=== PATIENT | female | born 1945 | race Caucasian/White ===

== ENCOUNTER 2020-03-20 15:16 | Inpatient (IN) | payer MEDICARE ==
[~2020-03-20] VITALS: Ht 162.6 cm; Wt 46.7 kg
[~2020-03-20 15:16] MED LIST: ASPIR-LOW81 MG; BUSPIRONE HCL5 MG PO; CLONAZEPAM0.5 M1 PO; GABAPENTIN300 MG PO; IPRATROPIUM BRO15 ML; LEVOTHYROXINE50 MCG PO; METOPROLOL TART50 MG PO; PROAIR HFA INH8.5 GM; RANITIDINE HCL150 M1 PO; ULTRAM50 MG PO
[2020-03-20 16:10] LABS: BASOPHILS % 0.3 % (0.0-1.0); EOSINOPHILS % 0.3 % (0.0-6.0); HEMATOCRIT 36.8 % (34.2-44.1); HEMOGLOBIN 11.8 g/dL (12.0-16.0); LYMPHOCYTES % 7.6 % (18.0-39.1); MEAN CORPUSCULAR HEMOGLOBIN 29.9 pg (28-32); MEAN CORPUSCULAR HGB CONC 32.1 g/dL (31-35); MEAN CORPUSCULAR VOLUME 93.2 fL (81-99); MONOCYTES # (AUTO) 1.4 (0.2-0.8); MONOCYTES % 10.7 % (4.4-11.3); NEUTROPHILS # (AUTO) 10.8 (2.1-6.9); NEUTROPHILS % 80.7 % (38.7-80.0); PLATELET COUNT 146 x10e3/uL (140-360); RED BLOOD COUNT 3.95 x10e6/uL (3.6-5.1)
[2020-03-20 16:18] LABS: INR 0.99; PROTHROMBIN TIME 13.6 seconds (11.9-14.5)
[2020-03-20 16:25] LABS: ALANINE AMINOTRANSFERASE 21 IU/L (0-55); ALBUMIN 2.9 g/dL (3.5-5.0); ALBUMIN/GLOBULIN RATIO 0.9 (0.8-2.0); ALKALINE PHOSPHATASE 55 IU/L (40-150); ANION GAP 17.6 mmol/L (8-16); BLOOD UREA NITROGEN 20 mg/dL (7-26); BUN/CREATININE RATIO 27 (6-25); CALCIUM 8.9 mg/dL (8.4-10.2); CARBON DIOXIDE 24 mmol/L (22-29); CHLORIDE 100 mmol/L (98-107); CREATININE, SERUM 0.74 mg/dL (0.57-1.11); EST GLOMERULAR FILTRATION RATE > 60 ML/MIN (60-); GLUCOSE 110 mg/dL (74-118); POTASSIUM 3.6 mmol/L (3.5-5.1); SODIUM 138 mmol/L (136-145)
[2020-03-20] MEDS ORDERED: AZITHROMYCIN 250 MG TAB PO ONE (17:15)
[2020-03-20] MEDS ORDERED: CEFTRIAXONE SOD 1 GM/NS 50 ML 50 ML IV ONE (17:30)
[2020-03-20] MEDS ORDERED: LACTATED RINGER'S 1,000 ML INJ ONE (17:30)
[2020-03-20 18:12] LABS: BILIRUBIN,URINE SMALL (NEGATIVE); CLARITY,URINE SL CLOUDY (CLEAR); COLOR,URINE YELLOW (YELLOW); KETONES,URINE 2+ (NEGATIVE); LEUKOCYTE ESTERASE ,URINE TRACE (NEGATIVE); NITRITE,URINE NEGATIVE (NEGATIVE); PROTEIN,URINE DIPSTICK 1+ (NEGATIVE); URINE UROBILINOGEN 0.2 mg/dL (0.2 - 1)
[2020-03-20 18:25] LABS: BACTERIA,URINE FEW /HPF; EPITHELIAL CELLS,URINE FEW /LPF; MUCUS,URINE FEW (RARE)
[2020-03-20 20:00] VITALS: BP 144/67
[2020-03-20 20:14] VITALS: BP 144/67
[2020-03-20] MEDS ORDERED: LOPERAMIDE HCL 2 MG CAP PO PRN (21:30)
[2020-03-20] MEDS ORDERED: SODIUM CHLORIDE 0.9% 1000ML 1,000 ML ONE (21:58)
[2020-03-20] MEDS ORDERED: SODIUM CHLORIDE 0.9% 1000ML 1,000 ML IV SCH (22:00)
[2020-03-20] MEDS: METOPROLOL TARTRATE 50 MG TAB PO SCH (22:01)
[2020-03-21] VITALS (7 sets, daily range): BP systolic 129–152; BP diastolic 68–125
[2020-03-21 05:04] LABS: BASOPHILS % 0.4 % (0.0-1.0); EOSINOPHILS # (AUTO) 0.1 (0.0-0.4); EOSINOPHILS % 0.8 % (0.0-6.0); HEMOGLOBIN 11.2 g/dL (12.0-16.0); LYMPHOCYTES # (AUTO) 0.8 (1.0-3.2); LYMPHOCYTES % 7.2 % (18.0-39.1); MEAN CORPUSCULAR HEMOGLOBIN 30.8 pg (28-32); MEAN CORPUSCULAR HGB CONC 32.9 g/dL (31-35); MEAN CORPUSCULAR VOLUME 93.4 fL (81-99); MONOCYTES # (AUTO) 1.3 (0.2-0.8); MONOCYTES % 12.7 % (4.4-11.3); NEUTROPHILS # (AUTO) 8.2 (2.1-6.9); NEUTROPHILS % 78.4 % (38.7-80.0); PLATELET COUNT 134 x10e3/uL (140-360); RED BLOOD COUNT 3.64 x10e6/uL (3.6-5.1); RED CELL DISTRIBUTION WIDTH 13.9 % (11.7-14.4)
[2020-03-21 05:19] LABS: ANION GAP 15.2 mmol/L (8-16); BLOOD UREA NITROGEN 12 mg/dL (7-26); BUN/CREATININE RATIO 19 (6-25); CALCIUM 8.4 mg/dL (8.4-10.2); CARBON DIOXIDE 24 mmol/L (22-29); CHLORIDE 102 mmol/L (98-107); CREATININE, SERUM 0.63 mg/dL (0.57-1.11); EST GLOMERULAR FILTRATION RATE > 60 ML/MIN (60-); GLUCOSE 107 mg/dL (74-118); POTASSIUM 3.2 mmol/L (3.5-5.1); SODIUM 138 mmol/L (136-145)
[2020-03-21] MEDS ORDERED: ACETAMINOPHEN 325 MG TAB PO PRN (05:30)
[2020-03-21] MEDS: ALBUTEROL/IPRATROPIUM 3 ML NEB NEB SCH ×3 (06:55→15:00)
[2020-03-21] MEDS: METOPROLOL TARTRATE 50 MG TAB PO SCH (08:57)
[2020-03-21] MEDS ORDERED: CLONAZEPAM PO PRN (10:45)
[2020-03-21] MEDS ORDERED: TRAMADOL HCL 50 MG TAB PO PRN (10:45)
[2020-03-21] MEDS ORDERED: GABAPENTIN 300 MG CAP PO SCH (11:00)
[2020-03-21] MEDS ORDERED: ASPIRIN 81 MG CHEW TAB PO SCH (11:00)
[2020-03-21] MEDS ORDERED: POTASSIUM CHLORIDE 20 MEQ TAB CR PO PRN (11:45)
[2020-03-21] MEDS ORDERED: PIPER-TAZ 3.375 GM 50 ML IV SCH (12:00)
[2020-03-21] MEDS ORDERED: NICOTINE 21 MG/EA PATCH TOP SCH (12:00)
[2020-03-21] MEDS ORDERED: AZITHROMYCIN 250MG/NS 100 ML 100 ML IV SCH (14:00)
[2020-03-21] MEDS ORDERED: METOPROLOL TARTRATE 50 MG TAB PO SCH (17:00)
[2020-03-21] MEDS ORDERED: BUSPIRONE HCL 5 MG TAB PO SCH (17:00)
[2020-03-22] MEDS ORDERED: LEVOTHYROXINE SODIUM 125 MCG TAB PO SCH (06:00)
[2020-03-22] MEDS ORDERED: FAMOTIDINE 20 MG TAB PO SCH (07:30)
[2020-03-22] MEDS ORDERED: RANITIDINE HCL PO SCH (09:00)
== END 2020-03-21 15:50 | disposition left against medical advice (07) | DRG 190 ==
LOC: ER 15:55 → ERHOLD 17:19 → MED/SURG2 19:39
DX: J44.0 Chronic obstructive pulmonary disease with (acute) lower respiratory infection (principal); J18.1 Lobar pneumonia, unspecified organism; N39.0 Urinary tract infection, site not specified; E44.1 Mild protein-calorie malnutrition; Z68.1 Body mass index [BMI] 19.9 or less, adult; Z11.59 Encounter for screening for other viral diseases; F17.210 Nicotine dependence, cigarettes, uncomplicated
CPT/HCPCS: 36415; 70450; 71045; 80048; 80053; 81001; 83605; 84484; 85025; 85610; 87040; 87400; 93005; 94640; 96361; J0696; J2543; J7030; J7121; U0002

== ENCOUNTER 2020-03-21 21:35 | Inpatient (IN) | payer MEDICARE ==
[~2020-03-21] VITALS: Ht 180.3 cm; Wt 44.9 kg
--- OUTSIDE RECORDS SUMMARY | 2020-03-21 21:58 | XMS REPORT | Clinical Summary ---
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 Active metoprolol succinate XL Take 100 mg 0 (TOPROL-XL) 100 mg 24 hr by mouth 2 tablet (two) times a day. Active losartan (COZAAR) 100 MG Take 1 tablet 0 tablet by mouth daily. Taken at noon Active clonAZEPAM (KlonoPIN) 0.5 Take 1 tablet 0 12/0 7/201 MG tablet by mouth 2 0 (two) times a day. Active loperamide (IMODIUM) 2 mg Take 2 mg by 0 capsule mouth 4 (four) times a day as needed for diarrhea. Active levothyroxine sodium Take by 0 (LEVOTHYROXINE ORAL) mouth. Active fluticasone-vilanterol Inhale 1 0 (BREO ELLIPTA) 100-25 inhalations mcg/dose blister with once daily. device powder for inhalation Active Problems Problem Noted Date Primary osteoarthritis of left knee 06/23/2018 Surgical History Surgery Date Site/Laterality Comments APPENDECTOMY 06/06/1961 - 06/05/1962 CHOLECYSTECTOMY 6 years ago COLONOSCOPY ARTHROPLASTY, KNEE, TOTAL 07/03/2018 Knee/Left Proc edure: LEFT TOTAL KNEE ARTHROPLASTY; Surgeon: Miguel Bell MD; Location: [address]; Service: Orthopedics; Laterality: Left ; Medical devices from this surgery are i n the Implants section. Medical History Medical History Date Comments Anesthesia hx of aspiration / NFHAP Dentition: wears upper /lower dentures Does not exercise denied SOB or CP / un able to climb stairs , uses cane to roam around Brain aneurysm diagnosed 9 years ago / n o surgical procedure done, monitored yearly COPD (chronic obstructive pulmonary does not have a Clinic Charge Nurse disease) (HCC) Hypertension Hypothyroidism GERD (gastroesophageal reflux disease) Arthritis lower back Difficulty swallowing r/t chemo/radiation therapy (neuroendocrine CA) Chronic diarrhea Diabetes mellitus (HCC) hx of - not on any medicati on Neuroendocrine cancer (HCC) lung , 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 Never 06/27/2018 How many drinks containing alcohol do you have on No t asked a typical day when you are drinking? How often do you have six or more drinks on one Not asked occasion? Sex Assigned at Date Recorded Not on file Last Filed Vital Signs Not on file Plan of Treatment Health Maintenance Due Date Last Done Comments COLONOSCOPY SCREENING 1993 SHINGLES VACCINES (#1) 1993 65+ PNEUMOCOCCAL VACCINE 2008 (1 of 1 - PPSV23) INFLUENZA VACCINE 01/05/2020 Implants Device Identifier Shelf Expiration Date Model / Serial / L ot Implanted Type Area Manufactur er 03/16/2028 [id number] / / [id number] Cee Cr Ilok Fem-Lt 62.5 - IPM Left: Knee BIOMET, [id number] IMPLANT [employer] Implanted: Qty: 1 on 07/03/2018 by DEVICES Miguel Bell MD at [facility] 02/25/2023 [id number] / / [id number] Rene Hall Brg 12x67 - IPM Left: Knee BIOMET, [id number] IMPLANT INC Implanted: Qty: 1 on 07/03/2018 by DEVICES Miguel Bell MD at [facility] 05/15/2023 [id number] / / [id number] Implant Ptlr Cee 3 Peg Series Knee Joint Left: Knee [employer] A Std 34x8.5mm - [id number] Implants Implanted: Qty: 1 on 07/03/2018 by Miguel Bell MD at [facility] 05/02/2028 [id number] / / [id number] Tray Tib Prim Interlok 67mm Ascent Knee Joint Left: Knee [employer]ET [employer] Maxim - [id number] Implants Implanted: Qty: 1 on 07/03/2018 by Miguel Bell MD at [facility] 05/25/2028 [id number] / / [id number] Stem Tib Prim Finned [id number] Ascent Knee Joint Left: Knee [employer]ET [employer] Maxim - [id number] Implants Implanted: Qty: 1 on 07/03/2018 by Miguel Bell MD at [facility] 07/06/2020 [id number] / / [id number] Cement Bone Refobacin R 40g - Surgical Left: Knee [employer] [id number] Bone Implanted: Qty: 1 on 07/03/2018 by Cement Miguel Bell MD at [facility] Results Not on fileafter 03/21/2019 Insurance Type Payer Benefit Subscriber ID Effective Phone Address Plan / Dates Group Medicare MEDICARE MEDICARE [id number] 2008-P [place], PART A AND resent [place] B Commercial AARP AAR [id number] 2008-P SUPPLEMENT resent Advance Directives For more information, please contact: [phone] 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
--- OUTSIDE RECORDS SUMMARY | 2020-03-21 21:58 | XMS REPORT | Clinical Summary ---
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 Active gabapentin (NEURONTIN) Take 100 mg 0 100 MG capsule by mouth daily. TAKES 3 TABLETS AT NIGHT Active levothyroxine (SYNTHROID, Take 175 mcg 0 LEVOTHROID) 175 MCG by mouth tablet daily. Active metoprolol (TOPROL-XL) Take 100 mg 0 100 MG 24 hr tablet by mouth 2 (two) times daily. Active hydrALAZINE (APRESOLINE) Take 50 mg by 0 50 MG tablet mouth 2 (two) times daily. Active clonazePAM (KLONOPIN) 0.5 Take 0.5 mg 0 MG tablet by mouth 2 (two) times daily as needed for Anxiety. Active busPIRone (BUSPAR) 15 MG Take 15 mg by 0 tablet mouth 2 (two) times daily. Active loperamide (IMODIUM A-D) Take 2 mg by 0 2 mg tablet mouth 4 (four) times daily as needed for Diarrhea. Active ranitidine (ZANTAC) 150 Take 150 mg 0 MG tablet by mouth as needed for Heartburn. Active acetaminophen (TYLENOL) Take 500 mg 0 500 MG tablet by mouth every 6 (six) hours as needed for Pain. Active Problems Problem Noted Date Cerebral aneurysm 05/13/2014 Social History Date Tobacco Use Types Packs/Day Years Used Current Some Day Smoker 1 45 Drinks/Week oz/Week Comments Alcohol Use No Sex Assigned at Date Recorded Not on file Last Filed Vital Signs Not on file Plan of Treatment Not on file Results Not on fileafter 03/21/2019 Insurance Type Payer Benefit Subscriber ID Effective Phone Address Plan / Dates Group Medicare MEDICARE MEDICARE A [id number] 2008-P B resent Medigap MCR SUPPLEMENT/INDIVIDUAL AARP/UNITE [id number] 2008-P D resent HEALTHCARE Advance Directives For more information, please contact: [phone] Date Inactivated Comments Code Status Date Activated 05/14/2014 12:19 AM Full Code 05/13/2014 4:35 PM This code status was determined by: Patient
--- OUTSIDE RECORDS SUMMARY | 2020-03-21 21:58 | XMS REPORT | Continuity of Care Document ---
Author Author Joanne Lan Shopliment LOU Cardoso Organization [employer] Address Unknown Phone Unavailable Care Team Providers Care Business Office Representative Name Role Phone [employer] Information Exchange Unavailable Un available Problems Problem Status Onset Date Classification Date Reported Comments Source Z96.652 Active 08/21/2018 [facility] LT KNEE Active 08/11/2018 [facility] Cerebral aneurysm, nonruptured 06/03/2018 12/14/2018 [facility] I67.1 - CEREBRAL ANEURYSM, NONRUPTURED Active 05/23/2018 AMADO [place] I67.1 Active 05/23/2018 [facility] ACUTE HYPOXEMIC RESPIRATORY FAILURE, ACU Active 09/17/2017 [facility] COUGH Active 09/17/2017 [facility] Displaced fracture of lateral condyle of left tibia, subsequent encounter for closed fracture with routine healing 08/30/2017 11/29/2017 [facility] AMS Active 0 06/28/2017 [facility] FALL Active 04/06/2017 [facility] A/Care Trauma Fx Hip Active 05/02/2013 [facility] FEMUR INTRCAPS NOS-CL Active 04/26/2013 [facility] UTI Active 1 06/26/2012 [facility] HPT B ACTE WO CM WO DLTA Active 04/26/2013 [facility] Depression Active 04/26/2013 [facility] ESOPHAGEAL REFLUX Active 04/26/2013 [facility] Amyotrophia Active 04/26/2013 [facility] NUTRITIONAL MARASMUS Active 04/26/2013 [facility] FALL NEC Active 04/26/2013 [facility] TROCHANTERIC FX NOS-CLOS Active 04/26/2013 [facility] BMI LESS THAN 19,ADULT Active 04/13/2013 [facility] HYPERLIPIDEMIA NEC/NOS Active 04/13/2013 [facility] MONONEURITIS NOS Active 04/13/2013 [facility] ANXIETY STATE NOS Active 04/13/2013 [facility] HX MALIG NEUROENDO TUMOR Active 04/13/2013 [facility] CERVICAL STRAIN/RTC Active 01/27/2013 [facility] za PAIN Active 01/17/2013 [facility] NODULE OF THYROID Active 11/08/2012 [facility] 241.0; THYROID NODULE Active 10/24/2012 [facility] ABN SENSORY PROCEPTION, MYELOPATHY Active 09/11/2012 [facility] NECK BACK AND RIGHT SHOULDER PAIN Active 06/06/2000 [facility] 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 [facility] Headache Resolved Problem 01/26/2013 [facility] Hypertension Resolved Problem 01/26/2013 [facility] y Malignant neoplasm, 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 [facility] Nondisplaced oblique fracture of shaft o f left fibula, subsequent encounter for closed fracture with routine healing 11/29/2017 [facility] Effusion, left knee 11/29/2017 [facility] Pain in left knee 11/29/2017 [facility] Unilateral primary osteoarthritis, left knee 11/29/2017 [facility] Chondromalacia patellae, left knee 11/29/2017 [facility] Difficulty in walking, not elsewhere classified 11/29/2017 [facility] Acute respiratory failure with hypoxia 09/23/2017 [facility] Stiffness of left knee, not elsewhere classified 11/29/2017 [facility] Aneurysm (disorder) Resolved Problem 01/02/2019 LINDSAY Freeman [place],[facility] Anxiety (finding) Resolved Problem 01/02/2019 LINDSAY Willis [place],[facility] Smoker (finding) Resolved Problem 01/02/2019 LINDSAY Gall[place],[facility] Diabetes mellitus (disorder) R esolved Problem staets she is supposed to be taking meds but has not taken in a while [facility] [place] Diarrhea (finding) Resolved Problem 01/02/2019 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 LINDSAY Freeman [facility] [place] Headache (finding) Resolved Problem 01/02/2019 LINDSAY Freeman [place],[facility] Hypercholesterolemia (disorder) Resolved Problem AMADO Willis [place]ree t,[facility] Hypertensive disorder, systemic arterial (disorder) Resolved Problem 01/02/2019 AMADO Willis, [place],[facility] Hypothyroidism (disorder) Reso lved Problem AMADO Willis, Jayshree t,[facility] SKIN SENSATION DISTURB Active [facility] SPINAL CORD DISEASE NOS Active [facility] NONTOX UNINODULAR GOITER Active [facility] LUMBAGO Active [facility] CERVICALGIA Active [facility] JOINT PAIN-SHLDER Active [facility] PAIN IN LIMB Active [facility] ACUTE RESPIRATORY FAILURE WITH HYPOXIA Active [facility] CHRONIC OBSTRUCTIVE PULMON DISEASE W ACU Active [facility] CEREBRAL ANEURYSM, NONRUPTURED Active [facility] Medications Medication Details Route Status Patient Instructions Ordering Provider Order Date Source Omnipaque 350 injectable solution Notes: (same as:Omnipaque 350). WASTE: F/P - Black; E - Municipal Trash [facility] Active 05/26/2018 [facility] Levofloxacin 500 MG Oral Tablet [Levaquin] 500 mg = 1 tab, PO, Q24H, X 7 day, # 7 tab, 0 Refill(s), Pharmacy: [id number] Active 09/20/2017 [facility] predniSONE 10 mg oral tablet S ee Special Instructions, PO, Daily, 4 tabs daily x 4 days, 3 tabs daily x 4 days, 2 tabs daily x 4days, 1 tab daily x 4 days, X 16 day, # 42 tab, 0 Refill(s), Pharmacy: [id number] Active 09/20/2017 [facility] Thyroxine Notes: Take 1 hour b efore or 2 hours after meal; Enteral feeds may interefere with the absorption of this medication.(Same as:Levothroid, Synthroid) No Longer Active 09/19/2017 [facility] gabapentin 300 MG Oral Capsule Notes: (Same as: Neurontin) No Longer Active 09/19/2017 [facility] Clonazepam Notes: (Same As: Kl onoPIN) No Longer Active 09/18/2017 [facility] Buspirone Notes: (Same As: BuS par) No Longer Active 09/18/2017 [facility] please bring pt's own med (APAP/asa/caff) to pharmac y please bring pt's own med (APAP/asa/caff) to pharmacy, reminder, Drug form: MISC, Route: MISC, ARY, 09/18/17 16:00:00 CDT, Duration: 30 day, Stop date: 10/18/17 8:00:00 CDT No Longer Active 09/18/2017 [facility] Insulin Lispro Notes: (Same as : Humalog ) Roll in palms of hands gently; Do not shake `vigorously. "Single Patient Use Only " WASTE: F/P - Black; E - Municipal Trash Bin Stable for 28 days at room temp erature. Expires in days from Date No Longer Active 09/18/2017 [facility] Glucagon 1 mg, Route: IM, Drug form: PDR/INJ, PRN, Dosing Weight 50.455, kg, PRN Blood Glucose Results, Start date: 09/18/17 11:54:00 CDT, Duration: 30 day, Stop date: 10/18/17 11:53:00 CDT No Longer Active 09/18/2017 [facility] Dextrose 50% Syringe 25 gm, 50 mL, Route: IVP, Drug Form: INJ, Dosing Weight 50.455, kg, PRN, PRN Blood Glucose Results, Start date: 09/18/17 11:54:00 CDT, Duration: 30 day, Stop date: 10/18/17 11:53:00 CDT No Longer Active 09/18/2017 [facility] metoprolol tartrate Notes: (Sa me as: Lopressor) No Longer Active 09/18/2017 [facility] Hydralazine Hydrochloride 50 MG Oral Tablet Notes: (Same as: Apresoline) May interfere w/enteral feedings Take With Food No Longer Active 09/18/2017 [facility] Losartan Notes: (Same as: Coza ar) No Longer Active 09/18/2017 [facility] Acetaminophen 250 MG / Aspirin 250 MG / Caffeine 65 MG Oral Tablet 1 tab, Route: PO, Drug Form: TAB, Dosing Weight 50.455, kg, Q6H, PRN Headache 4-6, Start date: 09/18/17 10:19:00 CDT, Duration: 30 day, Stop date: 10/18/17 10:18:00 CDT No Longe r Active 09/18/2017 [facility] Prednisone Notes: Take with fo od. No Longer Active 09/18/2017 [facility] Robitussin-AC oral syrup Notes : (Same As: Robitussin AC) No Longer Active 09/18/2017 [facility] Dextromethorphan Hydrobromide 2 MG/ML / Guaifenesin 20 MG/ML Oral Solution Notes: (dextromethorphan-guaifenesin 10- 100/5 ml LIQ) (Same as: Robitussin-DM) No Longer Active 09/18/2017 [facility] Azithromycin Notes: (Same As: Zithromax IV) No Longer Active 09/18/2017 [facility] Ceftriaxone Notes: (Same As: Abram cline). Use with 100 mL NS and infuse over 30 min MEDICATION WASTE Product Size: 1000 mg Product Wasted: ___ mg No Longer Active 09/18/2017 [facility] Loperamide Hydrochloride 2 MG / Simethic one 125 MG Oral Tablet [Imodium Multi- Symptom Relief] 6 tab, PO, Daily, PRN for loose stool, # 40 tab, 0 Refill(s) No Longer Active 09/18/2017 [facility] Tramadol 50 mg, PO, BID, PRN P ain, # 20 tab, 0 Refill(s) Active 09/18/2017 [facility] Albuterol 0.833 MG/ML / Ipratropium Brom francine 0.167 MG/ML Inhalant Solution [DuoNeb] Notes: (Same as: Duoneb) No Longer Active 09/17/2017 [facility] Sodium Chloride 0.9% (Bolus) IV 1,000 mL, 1000 ml/hr, Infuse Over: 1 hr, Route: IV, 1,000, Drug form: INJ, ONCE, Priority: STAT, Dosing Weight 45 kg, Start date: 09/17/17 18:19:00 CDT, Stop date: 09/17/17 18:19:00 CDT Inactive 09/17/2017 [facility] Solu-Medrol Notes: (Same as:So mei-MEDROL, A-Methapred) Inactive 09/17/2017 [facility] Sodium Chloride 0.9% (Bolus) IV 500 mL, Infuse Over: 1 hr, Route: IV, ONCE, Priority: STAT, Dosing Weight 45 kg, Start date: 09/17/17 18:17:00 CDT, Stop date: 09/17/17 18:17:00 CDT Inactive 09/17/2017 [facility] Saline Flush 0.9% Notes: (Same as: BD Posiflush) No Longer Active 09/17/2017 [facility] acetaminophen-hydrocodone 325 mg-10 mg oral tablet 1 tab, PO, Q6H, PRN Pain, X 5 day, # 20 tab, 0 Refill(s) Active 04/07/2017 [facility] Zofran 4 mg, Route: IVP, Drug form: INJ, ONCE, Dosing Weight 59.091, kg, Priority: STAT, Start date: 04/06/17 21:02:00 CDT, Stop date: 04/06/17 21:02:00 CDT Inactiv e 04/07/2017 [facility] morphine Sulfate 4 mg, Route: IVP, ONCE, Dosing Weight 59.091, kg, Priority: STAT, Start date: 04/06/17 21:02:00 CDT, Stop date: 04/06/17 21:02:00 CDT Inactive 04/07/2017 [facility] hydrALAZINE 10 mg, Route: IV, ONCE, Dosing Weight 59.091, kg, Start date: 04/06/17 17:27:00 CDT, Stop date: 04/06/17 17:27:00 CDT Inactive 04/06/2017 [facility] morphine Sulfate 4 mg, Route: IVP, ONCE, Dosing Weight 59.091, kg, Priority: STAT, Start date: 04/06/17 17:27:00 CDT, Stop date: 04/06/17 17:27:00 CDT Inactive 04/06/2017 [facility] Zofran 4 mg, Route: IVP, Drug form: INJ, ONCE, Dosing Weight 59.091, kg, Priority: STAT, Start date: 04/06/17 17:27:00 CDT, Stop date: 04/06/17 17:27:00 CDT Inactiv e 04/06/2017 [facility] metoprolol tartrate Notes: (Sa me as: Lopressor) Inactive 04/06/2017 [facility] labetalol Notes: (Same as: Myesha mora Trandate) Push over 2 minutes Give bolus over 2-3 minutes. Inactive 04/06/2017 [facility] acetaminophen-hydrocodone 325 mg-10 mg oral tablet 1 tab, Route: PO, Drug Form: TAB, Dosing Weight 59.091, kg, ONCE, STAT, Start date: 04/06/17 15:07:00 CDT, Stop date: 04/06/17 15:07:00 CDT Inactive 04/06/2017 [facility] Migraine Formula, 250-250-65 MG, Tablet Oral Brendel 05/02/2013 [facility] Nitrofurantoin Macrocrystal, 50 MG, Capsule Oral Brendel 05/02/2013 [facility] BusPIRone HCl, 15 MG, Tablet Oral Brendel 05/02/2013 [facility] Ipratropium [place], 0.03 %, Solution Nasal Brendel 05/02/2013 [facility] [place], 5-325 MG, Tablet Oral Brendel 05/02/2013 [facility] Losartan Potassium, 100 MG, Tablet Oral Brendel 05/02/2013 [facility] Zantac, 150 MG, Tablet Oral Brendel 05/02/2013 [facility] Metoprolol Tartrate, 100 MG, Tablet Oral Brendel 05/02/2013 [facility] HydrALAZINE HCl, 50 MG, Tablet Oral Brendel 05/02/2013 [facility] Gabapentin, 300 MG, Capsule Oral Brendel 05/02/2013 [facility] ClonazePAM, 0.5 MG, Tablet Oral Brendel 05/02/2013 [facility] Levothyroxine Sodium, 50 MCG, Tablet Oral Brendel 05/02/2013 [facility] Allergies, Adverse Reactions, Alerts Substance Category Reaction Severity Reaction type Status Date Reported Comments Source Demerol, 100 MG/ML, Solution D atatype(AL1.2)-ID Active 05/02/2013 [facility] Demerol HCl Assertion Drug allergy Active [facility] NKFA Assertion Propensity to adverse reacti ons to substance Active [facility] Immunizations Immunization Date Given Site Status Last Updated Comments Source Hx influenza vaccine-unspecified 06/21/2009 minesh shane [facility] Hx influenza vaccine-unspecified 06/21/2009 minesh shane AMADO Willis,[facility] Hx pneumococcal vaccine 2004 completed Belen shane [facility] Hx pneumococcal vaccine 2004 completed N svitlana AMADO Willis, [facility] Results Order Name Results Value Reference Range Date Interpretation Comments Source CHEM PANEL POC Creatinine 0.7 0.5 - 1.4 05/26/2018 [facility] CHEM PANEL eGFR 86 05/26/2018 Result Comment: The eGFR is calculated using the CKD-EPI formula. In most young, healthy individuals the eGFR will be >90 mL/min/1.73m2. The eGFR declines with age. An eGFR of 60-89 may be normal in some populations, particularly the elderly, for whom the CKD-EPI formula has not been extensively validated. Use of the eGFR is not recommended in the following populations:

Individuals with unstable creatinine concentrations, including patients and those with serious co-morbid conditions.

Patients with extremes in muscle mass or diet.

The data above are obtained from the National Kidney Disease Education Program (NKDEP) which additionally recommends that when the eGFR is used in patients with extremes of body mass index for purposes of drug dosing, the eGFR should be multiplied by the estimated BMI. [facility] ELECTROLYTES AGAP 10.9 10.0 - 20.0 09/20/2017 [facility] ELECTROLYTES eGFR 96 09/20/2017 Result Comment: The eGFR is calculated using the CKD-EPI formula. In most young, healthy individuals the eGFR will be >90 mL/min/1.73m2. The eGFR declines with age. An eGFR of 60-89 may be normal in some populations, particularly the elderly, for whom the CKD-EPI formula has not been extensively validated. Use of the eGFR is not recommended in the following populations:

Individuals with unstable creatinine concentrations, including patients and those with serious co-morbid conditions.

Patients with extremes in muscle mass or diet.

The data above are obtained from the National Kidney Disease Education Program (NKDEP) which additionally recommends that when the eGFR is used in patients with extremes of body mass index for purposes of drug dosing, the eGFR should be multiplied by the estimated BMI. [facility] ELECTROLYTES Calcium Lvl 8.8 8.5 - 10.5 09/20/2017 [facility] ELECTROLYTES Glucose Lvl 108 70 - 99 09/20/2017 [facility] ELECTROLYTES BUN 14 7 - 22 09/20/2017 [facility] ELECTROLYTES Chloride Lvl 107 95 - 109 09/20/2017 [facility] ELECTROLYTES CO2 28 24 - 32 09/20/2017 [facility] ELECTROLYTES Creatinine Lvl 0.4 9 0.50 - 1.40 09/20/2017 [facility] ELECTROLYTES Sodium Lvl 142 135 - 145 09/20/2017 [facility] ELECTROLYTES Potassium Lvl 3.9 3.5 - 5.1 09/20/2017 [facility] HEMATOLOGY RDW 14.2 11.5 - 14.5 09/20/2017 [facility] HEMATOLOGY MCHC 33.6 32.0 - 36.0 09/20/2017 [facility] HEMATOLOGY Platelet 190 133 - 450 09/20/2017 [facility] HEMATOLOGY MPV 8.9 7.4 - 10.4 09/20/2017 [facility] HEMATOLOGY MCH 31.2 27.0 - 31.0 09/20/2017 [facility] HEMATOLOGY MCV 93.1 80.0 - 98.0 09/20/2017 [facility] HEMATOLOGY Hct 39.7 36.0 - 48.0 09/20/2017 [facility] HEMATOLOGY Hgb 13.3 12.0 - 16.0 09/20/2017 [facility] HEMATOLOGY RBC 4.27 4.20 - 5.40 09/20/2017 [facility] HEMATOLOGY WBC 9.7 3.7 - 10.4 09/20/2017 [facility] HEMATOLOGY Lymphocytes # 0.9 1.0 - 5.5 09/20/2017 [facility] HEMATOLOGY Monocytes # 0.9 0.0 - 0.8 09/20/2017 [facility] HEMATOLOGY Segs-Bands # 7.9 1.5 - 8.1 09/20/2017 [facility] HEMATOLOGY Basophils 0.3 0.0 - 1.0 09/20/2017 [facility] HEMATOLOGY Eosinophils 0.1 0.0 - 4.0 09/20/2017 [facility] HEMATOLOGY Monocytes 9.4 2.0 - 12.0 09/20/2017 [facility] HEMATOLOGY Lymphocytes 9.0 20.0 - 40.0 09/20/2017 [facility] HEMATOLOGY Segs 81.2 45.0 - 75.0 09/20/2017 [facility] CARDIAC ENZYMES Total CK 37 12 - 191 09/18/2017 [facility] CARDIAC ENZYMES Troponin-I <0.02 0.00 - 0.40 09/18/2017 [facility] CHEM PANEL eGFR 100 09/18/2017 Result Comment: The eGFR is calculated using the CKD-EPI formula. In most young, healthy individuals the eGFR will be >90 mL/min/1.73m2. The eGFR declines with age. An eGFR of 60-89 may be normal in some populations, particularly the elderly, for whom the CKD-EPI formula has not been extensively validated. Use of the eGFR is not recommended in the following populations:

Individuals with unstable creatinine concentrations, including patients and those with serious co-morbid conditions.

Patients with extremes in muscle mass or diet.

The data above are obtained from the National Kidney Disease Education Program (NKDEP) which additionally recommends that when the eGFR is used in patients with extremes of body mass index for purposes of drug dosing, the eGFR should be multiplied by the estimated BMI. [facility] CHEM PANEL CO2 25 24 - 32 09/18/2017 [facility] CHEM PANEL AGAP 8.8 10.0 - 20.0 09/18/2017 [facility] CHEM PANEL Potassium Lvl 3.8 3.5 - 5.1 09/18/2017 [facility] CHEM PANEL Chloride Lvl 108 95 - 109 09/18/2017 [facility] CHEM PANEL Calcium Lvl 8.4 8.5 - 10.5 09/18/2017 [facility] CHEM PANEL Glucose Lvl 169 70 - 99 09/18/2017 [facility] CHEM PANEL Creatinine Lvl 0.44 0.50 - 1.40 09/18/2017 [facility] CHEM PANEL Sodium Lvl 138 135 - 145 09/18/2017 [facility] CHEM PANEL BUN 8 7 - 22 09/18/2017 [facility] HEMATOLOGY Monocytes # 0.4 0.0 - 0.8 09/18/2017 [facility] HEMATOLOGY Segs 86.8 45.0 - 75.0 09/18/2017 [facility] HEMATOLOGY Monocytes 5.2 2.0 - 12.0 09/18/2017 [facility] Segs-Bands # 6.9 1.5 - 8.1 09/18/2017 [facility] HEMATOLOGY Basophils 0.1 0.0 - 1.0 09/18/2017 [facility] Lymphocytes # 0.6 1.0 - 5.5 09/18/2017 [facility] Lymphocytes 7.9 20.0 - 40.0 09/18/2017 [facility] HEMATOLOGY WBC 7.9 3.7 - 10.4 09/18/2017 [facility] HEMATOLOGY Hgb 13.0 12.0 - 16.0 09/18/2017 [facility] HEMATOLOGY RBC 4.14 4.20 - 5.40 09/18/2017 [facility] HEMATOLOGY Hct 38.6 36.0 - 48.0 09/18/2017 [facility] HEMATOLOGY MPV 8.7 7.4 - 10.4 09/18/2017 [facility] HEMATOLOGY MCV 93.2 80.0 - 98.0 09/18/2017 [facility] HEMATOLOGY MCH 31.4 27.0 - 31.0 09/18/2017 [facility] HEMATOLOGY RDW 14.0 11.5 - 14.5 09/18/2017 [facility] HEMATOLOGY Platelet 161 133 - 450 09/18/2017 [facility] HEMATOLOGY MCHC 33.7 32.0 - 36.0 09/18/2017 [facility] SPECIAL CHEMISTRY Hgb A1C 5.9 <=5.6 % 09/18/2017 [facility] CARDIAC ENZYMES Troponin-I <0.02 0.00 - 0.40 09/18/2017 [facility] CARDIAC ENZYMES Total CK 36 12 - 191 09/18/2017 [facility] URINE AND STOOL UA Urobilinogen <=1.0 mg/dL 0.1 - 1.0 09/17/2017 [facility] URINE AND STOOL UA pH 5.0 5.0 - 8.0 09/17/2017 [facility] URINE AND STOOL UA Color Yellow *NA* (09/17/17 4:32 PM) Yellow 09/17/2017 [facility] URINE AND STOOL UA Bili Negative *NA* (09/17/17 4:32 PM) Negative 09/17/2017 [facility] URINE AND STOOL UA Glucose 50 mg/dL Negative mg/dL 09/17/2017 [facility] URINE AND STOOL UA Ketones Negative mg/dL Negative mg/dL 09/17/[address] [facility] [address] URINE AND STOOL UA Protein Negative mg/dL Negative mg/dL 09/17/[address] [facility] [address] URINE AND STOOL UA Spec Grav 1.023 <=1.030 09/17/2017 [facility] URINE AND STOOL UA Turbidity Clear (09/17/17 4:32 PM) Clear 09/17/2017 [facility] URINE AND STOOL UA Bacteria Occasional /HPF None Seen /HPF 09/17/2017 [facility] URINE AND STOOL UA Sq Epi Occasional /LPF Few /LPF 09/17/2017 [facility] URINE AND STOOL UA WBC <1 0 - 5 09/17/2017 [facility] URINE AND STOOL UA Leuk Est Negative (09/17/17 4:32 PM) Negative 09/17/2017 [facility] URINE AND STOOL UA Nitrite Negative (09/17/17 4:32 PM) Negative 09/17/2017 [facility] URINE AND STOOL UA Blood Negative (09/17/17 4:32 PM) Negative 09/17/2017 [facility] CARDIAC ENZYMES CK MB Index 4.1 0.0 - 2.5 09/17/2017 [facility] CARDIAC ENZYMES Troponin-I <0.02 0.00 - 0.40 09/17/2017 [facility] CARDIAC ENZYMES CK MB 1.7 0.5 - 3.6 09/17/2017 [facility] CARDIAC ENZYMES Total CK 41 12 - 191 09/17/2017 [facility] CARDIAC ENZYMES BNP 62 <=100 pg/mL 09/17/2017 [facility] CHEM PANEL eGFR 67 09/17/2017 Result Comment: The eGFR is calculated using the CKD-EPI formula. In most young, healthy individuals the eGFR will be >90 mL/min/1.73m2. The eGFR declines with age. An eGFR of 60-89 may be normal in some populations, particularly the elderly, for whom the CKD-EPI formula has not been extensively validated. Use of the eGFR is not recommended in the following populations:

Individuals with unstable creatinine concentrations, including patients and those with serious co-morbid conditions.

Patients with extremes in muscle mass or diet.

The data above are obtained from the National Kidney Disease Education Program (NKDEP) which additionally recommends that when the eGFR is used in patients with extremes of body mass index for purposes of drug dosing, the eGFR should be multiplied by the estimated BMI. [facility] CHEM PANEL Total Protein 8.0 6.4 - 8.4 09/17/2017 [facility] CHEM PANEL AGAP 14.9 10.0 - 20.0 09/17/2017 [facility] CHEM PANEL Bili Total 0.5 0.2 - 1.3 09/17/2017 [facility] CHEM PANEL ALT 15 0 - 65 09/17/2017 [facility] CHEM PANEL Alk Phos 101 39 - 136 09/17/2017 [facility] CHEM PANEL Albumin Lvl 3.0 3.5 - 5.0 09/17/2017 [facility] CHEM PANEL AST 12 0 - 37 09/17/2017 [facility] CHEM PANEL Globulin 5.0 2.7 - 4.2 09/17/2017 [facility] CHEM PANEL B/C Ratio 15 6 - 25 09/17/2017 [facility] CHEM PANEL A/G Ratio 0.6 0.7 - 1.6 09/17/2017 [facility] CHEM PANEL Creatinine Lvl 0.85 0.50 - 1.40 09/17/2017 [facility] CHEM PANEL BUN 13 7 - 22 09/17/2017 [facility] CHEM PANEL Glucose Lvl 198 70 - 99 09/17/2017 [facility] CHEM PANEL Chloride Lvl 101 95 - 109 09/17/2017 [facility] CHEM PANEL Potassium Lvl 4.9 3.5 - 5.1 09/17/2017 [facility] CHEM PANEL Calcium Lvl 9.2 8.5 - 10.5 09/17/2017 [facility] CHEM PANEL CO2 27 24 - 32 09/17/2017 [facility] CHEM PANEL Sodium Lvl 138 135 - 145 09/17/2017 [facility] HEMATOLOGY Eosinophils # 0.1 0.0 - 0.5 09/17/2017 [facility] HEMATOLOGY Segs-Bands # 7.3 1.5 - 8.1 09/17/2017 [facility] HEMATOLOGY Monocytes # 0.9 0.0 - 0.8 09/17/2017 [facility] HEMATOLOGY Lymphocytes # 1.0 1.0 - 5.5 09/17/2017 [facility] HEMATOLOGY Eosinophils 0.8 0.0 - 4.0 09/17/2017 [facility] HEMATOLOGY Monocytes 9.2 2.0 - 12.0 09/17/2017 [facility] HEMATOLOGY Segs 78.8 45.0 - 75.0 09/17/2017 [facility] HEMATOLOGY Basophils 0.3 0.0 - 1.0 09/17/2017 [facility] HEMATOLOGY Lymphocytes 10.9 20.0 - 40.0 09/17/2017 [facility] HEMATOLOGY RDW 14.5 11.5 - 14.5 09/17/2017 [facility] HEMATOLOGY Platelet 189 133 - 450 09/17/2017 [facility] HEMATOLOGY MPV 8.7 7.4 - 10.4 09/17/2017 [facility] HEMATOLOGY MCH 31.1 27.0 - 31.0 09/17/2017 [facility] HEMATOLOGY MCV 93.4 80.0 - 98.0 09/17/2017 [facility] HEMATOLOGY MCHC 33.3 32.0 - 36.0 09/17/2017 [facility] HEMATOLOGY WBC 9.3 3.7 - 10.4 09/17/2017 [facility] HEMATOLOGY RBC 4.63 4.20 - 5.40 09/17/2017 [facility] HEMATOLOGY Hct 43.2 36.0 - 48.0 09/17/2017 [facility] HEMATOLOGY Hgb 14.4 12.0 - 16.0 09/17/2017 [facility] VIRAL - SEROLOGY Influ A Negative (09/17/17 3:42 PM) Negative 09/17/2017 [facility] VIRAL - SEROLOGY Influ B Negative (09/17/17 3:42 PM) Negative 09/17/2017 [facility] Pathology Reports No Data Provided for This Section Diagnostic Reports Report Value Date Source Brain CTA EXAM: CTA BRAIN EXAM: CT HEAD DATE: 05/26/2018 11:18 GRAIN OILSEED OR PASTURE GROWER INDICATION: - I67.1 Cerebral aneurysm, nonruptured. Headaches. COMPARISON: CT head of 06/28/2017. No prior CT or MRI angiography available for comparison. TECHNIQUE: Nonenhanced axial CT head were performed. Subsequently, Rapid acquisition spiral CT images of the brain were obtained between the skull base and the cranial vertex during intravenous infusion of iodinated contrast for the purposes of CT angiography. 3-D CT angiographic images are created using MIP technique at the acquisition workstation. The source images are also presented for interpretation. IV contrast: 100 mL of Omnipaque 350 DLP: 861 mGy-cm CT ANGIOGRAM FINDINGS: The anterior and posterior circulations have a normal appearance and a standard branching pattern. No branch occlusion, vascular injury, arteritis, or vascular malformation is identified. A 3.9 mm inferiorly directed aneurysm is present off of the right MCA bifurcation with MCA branches arising from the aneurysm. The deep cerebral veins and major venous sinuses are normal. CT HEAD FINDINGS: No acute territorial infarct or intracranial hemorrhage detected. Diffuse cerebral atrophy and moderate chronic small vessel ischemic change. 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 Marked atherosclerotic calcification of the distal internal carotid arteries. IMPRESSION: 1. A 3.9 mm inferiorly directed aneurysm is present off of the right MCA bifurcation with MCA branches arising from the aneurysm. No prior CT or MRI angiography available for comparison. 2. No acute territorial infarct or intra cranial hemorrhage detected. Diffuse cerebral atrophy and moderate chronic small vessel ischemic change. 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 SL: [id number] 05/26/2018 [facility] Chest 1view DX Study: Chest 1v iew DX 09/17/2017 3:23 PM CDT Clinical Indication: - cough; Comparison: Chest x-ray 06/28/2017. CT chest 06/28/2017. FINDINGS: Cardiac silhouette stable. Aortic calcifications. Stable hyperinflated lung levin. Biapical pleural-parenchymal scarring is stable. Peripheral reticular scarring of the right upper lobe is stable. No lobar consolidation, effusion, pneumothorax. IMPRESSION: Emphysematous chest without acute intrathoracic findings SL: RICHMOND 09/17/2017 [facility] Brain wo contrast CT CT head w ithout contrast Clinical Indication: - syncope. Comparison: 04/06/2017. TECHNIQUE: CT images were obtained from the foramen magnum to the vertex without the use of intravenous contrast on a multidetector CT. CT imaging was performed with exposure control parameters to reduce radiation dose. Coronal and sagittal reconstructions were obtained. CT radiation dose DLP: 981.54 mGy-cm FINDINGS: There is mild periventricular and deep white matter hypoattenuation, most consistent with chronic small vessel ischemic disease. No intra or extra-axial fluid or blood collection is seen. No mass or midline shift. Ventricles and sulci are prominent secondary to mild atrophy. Calvarium is intact. Visualized paranasal sinuses and mastoid air cells are clear. IMPRESSION: Age-related involutional changes with no acute intracranial abnormality. SL: CECY 06/28/2017 [facility] Chest Pulmonary Embolism CTA CTA CHEST WITH CONTRAST INDICATION: Evaluate for PE, - dyspnea, CT dose DLP 261.06 COMPARISON: CTA chest 09/26/2012, chest radiograph 06/28/2017 TECHNIQUE: CTA of the chest was performed after administration of intravenous contrast. Coronal, sagittal, and 3-D reformatted images were utilized. DISCUSSION: No pulmonary emboli are visible. Due to timing of the contrast bolus, the aorta is not well opacified at the time of the scan. The aorta is grossly patent and normal in caliber, without evidence of dissection. The heart is normal in size. There are coronary artery calcifications. Note is made of contrast reflux into the hepatic IVC and hepatic veins. This finding can be seen in the setting of right heart failure. There are advanced emphysematous changes of the lungs. There is grossly stable chronic consolidation/atelectasis/scarring at the left lung apex, associated with bronchiectasis. There is multifocal platelike atelectasis or scarring of both lungs. There is no pleural effusion or pneumothorax. Three nodules are visible at the right lung base, measuring as large as 4 mm (series 5; images 41, 47, 48). The trachea and major bronchi are grossly clear. No suspicious lymphadenopathy is identified. Limited evaluation of the upper abdominal structures demonstrates intrahepatic biliary dilatation. BONES: No acute bony abnormalities are seen. IMPRESSION: 1. No evidence of pulmonary embolism. 2. Advanced emphysematous changes of the lungs. 3. Grossly stable chronic consolidation/ atelectasis or scarring at the left lung apex. 4. Small pulmonary nodules at the right lung base, as described. It is unclear if these nodules were present in the comparison CT from 2013, due to superimposed consolidation at that time. Recommend follow-up as indicated below or as otherwise clinically indicated. 5. Intrahepatic biliary dilatation. The upper abdominal structures are only partially included in the scan. [employer] RECOMMENDATIONS FOR INCIDENTAL PULMONARY NODULES (LESS THAN 8 MM) Low risk patient Less than or equal to 4 mm: No follow-up. 4-6 mm: Follow-up CT at 12 months; if un changed, no further follow-up. 6-8 mm: Initial follow-up CT at 6-12 mon ths then at 18-24 months if no change. Greater than 8 mm: Follow-up CT at around 3, 9, and 24 months, dynamic contrast- enhanced CT, PET, and/or biopsy. High risk patient Less than or equal to 4 mm: Follow-up CT at 12 months; if unchanged, no further follow-up. 4-6 mm: Initial follow-up CT at 6-12 mon ths then at 18-24 months if no change. 6-8 mm: Initial follow-up CT at 3-6 rose hs then at 9-12 months and 24 months if no change. Greater than 8 mm: Same as low-risk patient. Notes: 1. Newly detected indeterminate nodule i n persons 35 years of age or older. 2. Low risk patient: Minimal absent hist ory of smoking and of other known risk factors. 3. High risk patient: History of smoking or other known risk factors 4. Nonsolid groundglass or partially samantha id nodules may require longer follow-up to exclude indolent adenocarcinoma. 5. The risk of malignancy in nodules les s than or equal to 4 mm in a low risk patient is less than 1% and is substantially less than that in a baseline CT scan of an asymptomatic smoker. SL:16 06/28/2017 [facility] Chest 1view DX Patient Name: Kiana MAIER : 1945; Age: 71 years y/o Female MR: [id number] Study: Chest 1view DX dated 06/28/2017. Clinical Indication: - dyspnea; Comparison: 04/26/2013 Increased lung volumes suggest emphysematous changes. There may be calcified plaques along the hemidiaphragms bilaterally. Left apical pleural thickening stable. Cardiac and mediastinal structures are stable including aortic calcification. Slight fibrosis lateral right mid lung similar to prior study. No other focal infiltrates within the lungs, no edema and no pneumothorax. SL: CSODERSTROM-PC 06/28/2017 [facility] Knee wo contrast CT Exam: Left Knee wo contrast CT Clinical Indication: fall from standing, x-ray possible tibial plateau fracture; pt fell at approx 1300, denies dizzness or weakness. pt accidentally tripped on wheelchair ramp. skin tears bilaterally to forearms, dressings applied. left knee pain swelling noted. pedal pulse. Comparison: None. TECHNIQUE: CT of the left knee is performed on a multidetector CT with coronal and sagittal reconstructions. CT Radiation Dose: DLP = 417.74 mGy-cm FINDINGS: There is a comminuted lateral tibial plateau fracture with extension into the anterior and posterior aspects of the tibial spine. There is 4 mm depression of the posterior half of the weightbearing surface of lateral tibial plateau. There is no fracture line extension into the tibial diaphyseal region. There is no fracture line involvement of the medial tibial plateau. There is an oblique nondisplaced fracture of fibular head. There are no fractures of the femoral condyles or visualized distal femoral region. The patella is normal. There is a large lipohemarthrosis. There are no calcified joint bodies. The regional skeleton is appreciated. IMPRESSION: 1. Comminuted lateral tibial plateau fra cture with involvement of the tibial spine region, as noted above. 4 mm depression of the posterior weightbearing surface. No involvement of the medial tibial plateau. 2. Oblique nondisplaced fracture of fibu lar head. SL: [id number] 04/06/2017 [facility] Brain wo contrast CT EXAM: CT BRAIN WITHOUT CONTRAST DATE: 04/06/2017 3:06 PM CDT INDICATION: - fall ADDITIONAL INFORMATION AND CT DLP: 981.77 mGy-cm. COMPARISON: CT head of 09/23/2012. TECHNIQUE: Routine axial CT images of the brain were obtained. IV contrast: None. 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 No acute territorial infarction or intracranial hemorrhage detected. Diffuse cerebral and cerebellar atrophy and mild chronic small vessel ischemic change. Mcmahan-white matter distinction is preserved. The ventricles are normal. The basal cisterns and sulci are normal in size. Marked atherosclerotic calcification of the distal internal carotid arteries. Mild mucosal thickening of the ethmoid air cells. Mild partial opacification the mastoid air cells. IMPRESSION: 1. Small left centrum semiovale ovale in farct is present likely chronic. No acute territorial infarction or intracranial hemorrhage detected. 2. Diffuse cerebral and cerebellar atrop hy and mild chronic small vessel ischemic change. If there is further concern for intracranial pathology or acute stroke, MRI of the brain may be performed for complete assessment. SL: [id number] 04/06/2017 [facility] Knee series 3 views DX Exam: L [facility] Knee series 3 views DX Clinical Indication: - knee pain s/p fall. Comparison: None. FINDINGS: The 3 views of the knee show joint effusion with fat fluid level. There is diffuse osteopenia. Subtle cortical irregularity involving the tibia laterally likely represents nondepressed lateral tibial plateau fracture. Diffuse soft tissue edema. Vascular calcifications noted. Recommended for further evaluation. IMPRESSION: 1. Joint effusion with fat fluid level. Probable lateral tibial plateau fracture. Follow-up CT scan recommended for further evaluation. SL: [id number] 04/06/2017 [facility] Humerus wo contrast MRI MRI RI GHT SHOULDER WITHOUT CONTRAST, MRI RIGHT HUMERUS WITHOUT CONTRAST INDICATION: Pain, trauma COMPARISON: Right shoulder radiograph 12/20/2012 DISCUSSION: Image detail is degraded by motion artifacts. SHOULDER: MUSCLES AND TENDONS: Rotator cuff: There is a massive full-thickness or complex high-grade partial tear of the supraspinatus tendon, measuring roughly 4 - 4.5 cm in length. There is an articular surface component that measures roughly 4 cm, a 0.5 cm bursal surface component, and an interstitial component extends roughly the entire length of the tear, extending towards the myotendinous junction. There is articular and interstitial partial tearing of the subscapularis tendon, measuring approximately 3.3 cm in length, and extending into the myotendinous junction. The infraspinatus and teres minor tendons are intact and normal in signal. Biceps tendon: The long head of the biceps tendon is displaced medially from the bicipital groove and is seen within the intrasubstance tear of the subscapularis tendon. The displaced tendon appears markedly thickened and increased in signal, likely due to partial tearing or severe tendinopathy. Fluid is noted in the subacromial/subdeltoid bursa. JOINTS: Glenohumeral joint: Labrum: The anterior labrum appears globular and irregular, possibly due to degenerative tearing. Articular cartilage: The articular cartilage of the humeral head and glenoid appears thin and mildly fibrillated. Osseous acromion complex: There is type II acromion morphology with horizontal orientation. There is degenerative arthrosis of the acromioclavicular joint. No os acromiale is identified. HUMERUS: The bone marrow signal of the humerus and shoulder girdle is normal. The soft tissues of the upper right arm, excluding displacement of the long head of the biceps tendon, are unremarkable. IMPRESSION: 1. Masses full-thickness tearing or comp mary high-grade partial tearing of the supraspinatus tendon, as described. 2. Articular surface and interstitial pa rtial tearing of the subscapularis tendon. 3. Partial tearing of the long head of t he biceps tendon, displaced into the interstitial tear of the subscapularis tendon. 4. Possible degenerative tearing of the anterior labrum. 5. The humerus is unremarkable. SL: 15 01/24/2013 [facility] wo contrast MRI MRI R IGHT SHOULDER WITHOUT CONTRAST, MRI RIGHT HUMERUS WITHOUT CONTRAST INDICATION: Pain, trauma COMPARISON: Right shoulder radiograph 12/20/2012 DISCUSSION: Image detail is degraded by motion artifacts. SHOULDER: MUSCLES AND TENDONS: Rotator cuff: There is a massive full-thickness or complex high-grade partial tear of the supraspinatus tendon, measuring roughly 4 - 4.5 cm in length. There is an articular surface component that measures roughly 4 cm, a 0.5 cm bursal surface component, and an interstitial component extends roughly the entire length of the tear, extending towards the myotendinous junction. There is articular and interstitial partial tearing of the subscapularis tendon, measuring approximately 3.3 cm in length, and extending into the myotendinous junction. The infraspinatus and teres minor tendons are intact and normal in signal. Biceps tendon: The long head of the biceps tendon is displaced medially from the bicipital groove and is seen within the intrasubstance tear of the subscapularis tendon. The displaced tendon appears markedly thickened and increased in signal, likely due to partial tearing or severe tendinopathy. Fluid is noted in the subacromial/subdeltoid bursa. JOINTS: Glenohumeral joint: Labrum: The anterior labrum appears globular and irregular, possibly due to degenerative tearing. Articular cartilage: The articular cartilage of the humeral head and glenoid appears thin and mildly fibrillated. Osseous acromion complex: There is type II acromion morphology with horizontal orientation. There is degenerative arthrosis of the acromioclavicular joint. No os acromiale is identified. HUMERUS: The bone marrow signal of the humerus and shoulder girdle is normal. The soft tissues of the upper right arm, excluding displacement of the long head of the biceps tendon, are unremarkable. IMPRESSION: 1. Masses full-thickness tearing or comp mary high-grade partial tearing of the supraspinatus tendon, as described. 2. Articular surface and interstitial pa rtial tearing of the subscapularis tendon. 3. Partial tearing of the long head of t he biceps tendon, displaced into the interstitial tear of the subscapularis tendon. 4. Possible degenerative tearing of the anterior labrum. 5. The humerus is unremarkable. SL: 15 01/24/2013 [facility] Spine cervical 2 or 3 views Cl inical Indication: pain Findings: 2 views of the cervical spine are obtained. No acute fracture or dislocation is seen. Alignment of vertebral bodies are normal. Prevertebral soft tissues are unremarkable. Mild degenerative change at C6-C7 with posterior osteophyte formation is seen. Impression: 1. No acute abnormality identified in th e cervical spine. Mild degenerative spondylosis of lower cervical spine. 12/20/2012 [facility] Spine lumbar 2 or 3 views Clin ical Indication: pain Findings: 2 views of the lumbar spine are obtained. No acute fracture or dislocation is seen. Mild anterolisthesis of L3 on L4 vertebral body of approximately 4 mm is noted. Disc space narrowing is also noted at L4-L5 and L5-S1 which is mild to moderate. Impression: 1. Degenerative spondylosis of the lower lumbar spine including mild anterolisthesis of L3 on L4 vertebral body. 12/20/2012 [facility] Spine thoracic 2 views Clinica l Indication: pain Findings: 2 views of thoracic spine are obtained. No acute fracture or dislocation is seen. Mild degenerative spondylosis is noted throughout the thoracic spine. Alignment of vertebral bodies are normal. Impression: 1. No acute abnormality identified in th e thoracic spine. Mild degenerative spondylosis throughout the thoracic spine. 12/20/2012 [facility] Shoulder series Clinical Indic ation: pain Findings: Three views of the right shoulder are obtained. No acute fracture or dislocation is seen. Joint spaces are within normal limits. Soft tissues are unremarkable. Impression: 1. No abnormality identified in the righ t shoulder. 12/20/2012 [facility] Thyroid biopsy guided by US FN A of right thyroid mass CLINICAL HISTORY: Thyroid nodules. 67-year-old female presents for FNA of right thyroid lobe nodules. TECHNIQUE: After obtaining informed consent and explaining the risks and benefits of the procedure to the patient, the patient was placed on the ultrasound table in a supine position. The patient is not on any blood thinners. Patient's questions were answered. The overlying area was cleaned with Chloro- prep and anesthetized with 2% Xylocaine. Biopsy of the 8mm nodule as recommended on ultrasound from 10/12/2012 was performed. 14 mm nodule appears prominent on the current scan and biopsy of this nodule was also performed. Using ultrasound guidance, a 25 gauge needle was placed into the 8mm nodule in the right lobe of the thyroid gland. 2 separate passes were made. The obtained material was placed on glass slides and additional material placed in Cytolyte solution and sent to cytology for further analysis. Following the above biopsy, 25-gauge needle was placed into the 14 mm nodule in the lower pole of right lobe of thyroid gland. Obtained material was placed on glass slides and in Cytolyte solution similar to the first FNA. The patient tolerated both procedures well and no immediate complications were noted. SL:13 11/14/2012 [facility] Thyroid US THYROID ULTRASOUND: The right lobe is 4.4 cm in length and 1.3 x 1.2 cm in transverse dimension. The left lobe is 2.6 cm in length and 0.5 x 1.0 cm in transverse dimension. The background echotexture of the thyroid is mildly heterogeneous. Mildly lobular contours are noted. There is a 1.4 cm well circumscribed ovoid isoechoic nodule in the lower pole of the right lobe with a thin sonolucent rim. This shows mildly increased peripheral vascularity with color Doppler. In the mid right lobe is a less defined, irregular 8mm slightly hyperechoic nodule without increased vascularity. A 4 mm well marginated hypoechoic nodule is seen at the inferior tip of the right lobe. There is a 6 mm ovoid, well marginated isoechoic nodule in the lower pole of the left lobe with a thin sonolucent rim, showing slightly increased vascularity in the rim. No other left thyroid nodule is seen. IMPRESSION: Multiple bilateral thyroid nodules. Most of these are probably benign adenomatous nodules, but the ill-defined 8mm nodule in the mid right lobe is less determinate. FNA of this lesion should be considered. SL:13 11/01/2012 [facility] Spine cervical wo contrast MRI PROCEDURE: Spine cervical wo contrast MRI CLINICAL INFORMATION 336.9 myelopathy, 782.0 abn sensory perception COMPARISON: None FINDINGS: The cervical spine alignment is maintained. The vertebral body heights and marrow signal are normal. There is disc desiccation signal and loss of height greatest at C6-C7. There is no evidence for discitis/ osteomyelitis. There is no intraosseous vertebral body lesion. The spinal cord course, caliber and signal are unremarkable. The foramen magnum region is normal. There is no Chiari I malformation. C7-T1: There is no spinal stenosis. The right foramen is patent. The left foramen is patent. There is no facet arthritic change bilaterally. C6-C7: There is no spinal stenosis. There is a small central disc bulge. The right foramen is moderately narrowed. The left foramen is patent. There is no facet arthritic change bilaterally. C5-C6: There is no spinal stenosis. There is a right paracentral disc protrusion. The right foramen is severely narrowed. The left foramen is moderately narrowed. There is no facet arthritic change bilaterally. C4-C5: There is no spinal stenosis. There is minimal disc bulging. The right foramen is mildly narrowed. The left foramen is patent. There is no facet arthritic change bilaterally. C3-C4: There is no spinal stenosis. The right foramen is patent. The left foramen is patent. There is no facet arthritic change bilaterally. C2-C3: There is no spinal stenosis. The right foramen is patent. The left foramen is patent. There is no facet arthritic change bilaterally. Right thyroid nodule is noted measuring 1.1 cm. IMPRESSION: 1. C5-C6 right paracentral disc protrusi on with severe right and moderate left neural foraminal narrowing. 2. C6-C7 disc bulge with moderate right foraminal narrowing. 3. C4-C5 disc bulging with mild right fo raminal narrowing. 4. Right thyroid nodule, correlation wit h a thyroid ultrasound is recommended. These findings were communicated to Dr. Rangel via the [employer] Alert System at 8:25 a.m. SL: 10/16/2012 [facility] Spine Thoracic wo contrast MRI PROCEDURE: Spine Thoracic wo contrast MRI CLINICAL INFORMATION 336.9 myelopathy, 782.0 abn sensory perception COMPARISON: Chest CT 09/26/2012. PET scan 09/24/2009. Abdomen CAT scan 10/01/2011. The thoracic spine alignment, vertebral body heights and marrow signal are normal. There is disc desiccation signal loss of height greatest at T6 through T9. The spinal cord course, caliber and signal are unremarkable. There is mild disc protrusion involving the left paracentral T7-T8 level and right paracentral T8-T9 level. Scans through the upper lung levin demonstrates opacities in both lower lung levin. Please refer to chest CT of 09/26/2012. T2 intense right renal lesion measured 15 Hounsfield units on the prior chest CT, likely a stable cyst. This is unchanged when compared to the prior PET scan of 09/24/2009 and CAT scan of 10/01/2011. IMPRESSION: 1. Small disc protrusions involving T7-T 8 and T8-T9. 2. Multiple bilateral pulmonary opacitie s, please refer to the chest CT of 09/26/2012. These findings were communicated to Dr. Rangel via the [employer] System at 8:37 a.m. SL: 10/16/2012 [facility] Consultation Notes No Data Provided for This Section Discharge Summaries No Data Provided for This Section History and Physicals No Data Provided for This Section Vital Signs Vital Sign Value Date Comments Source Respitory Rate 25 09/20/2017 [facility] Temperature Oral (F) 97.9 F 09/20/2017 [facility] Respitory Rate 20 09/20/2017 [facility] Systolic (mm Hg) 175 09/20/2017 [facility] Diastolic (mm Hg) 87 09/20/2017 [facility] Respitory Rate 16 09/20/2017 [facility] Systolic (mm Hg) 154 09/20/2017 [facility] Diastolic (mm Hg) 75 09/20/2017 [facility] Systolic (mm Hg) 150 09/20/2017 [facility] Diastolic (mm Hg) 78 09/20/2017 [facility] Temperature Oral (F) 98.1 F 09/20/2017 [facility] Temperature Oral (F) 98.4 F 09/20/2017 [facility] BMI Calculated 19.09 09/18/2017 [facility] Weight 50.455 09/18/2017 [facility] Height 162.56 cm 09/18/2017 [facility] Height 162.56 cm 09/17/2017 [facility] Heart Rate 96 09/17/2017 [facility] Weight 45 0 09/17/2017 [facility] BMI Calculated 17.03 09/17/2017 [facility] Systolic (mm Hg) 138 04/07/2017 [facility] Diastolic (mm Hg) 78 04/07/2017 [facility] Respitory Rate 18 04/07/2017 [facility] Systolic (mm Hg) 128 04/07/2017 [facility] Diastolic (mm Hg) 69 04/07/2017 [facility] Heart Rate 85 04/07/2017 [facility] Temperature Oral (F) 99.5 F 04/07/2017 [facility] Heart Rate 85 04/07/2017 [facility] Systolic (mm Hg) 104 04/07/2017 [facility] Diastolic (mm Hg) 78 04/07/2017 [facility] Heart Rate 72 04/07/2017 [facility] Temperature Oral (F) 99.2 F 04/06/2017 [facility] Respitory Rate 18 04/06/2017 [facility] Weight 59.091 04/06/2017 [facility] BMI Calculated 23.83 04/06/2017 [facility] Temperature Oral (F) 99.4 F 04/06/2017 [facility] Height 157.48 cm 04/06/2017 [facility] Respitory Rate 22 04/06/2017 [facility] Encounters Location Location Details Encounter Type Encounter Number Reason For Visit Attending Provider ADM Date DC Date Status Source [facility] Outpatient [id number] ABN SENSORY PROCE PTION, MYELOPATHY ROSA M RANGEL 10/16/2012 Active [facility] Outpatient [id number] 241.0; THYROID NO DULE [facility] RANGEL 11/01/2012 Active [facility] Outpatient [id number] NODULE OF THYROID ROSA M RANGEL 11/14/2012 [facility] Outpatient [id number] NECK BACK AND RIG HT SHOULDER PAIN ROSANA SHAYE 12/20/2012 Active [facility] Outpatient [id number] PAIN YANET FLORESVI 01/24/2013 01/24/2013 Active [facility] [id number] CERVICAL STRAIN/RTC PAO ROBLERO 02/16/2013 Active [place] [address] Outpatient [id number] 05/02/2013 06/07/2013 Discharged [facility] Emergency [id number] Clark BowlesCandelaria 04/06/2017 04/07/2017 [facility] OP Therapy Patients [id number] Homar Rubi 06/17/2017 07/17/2017 [facility] OP Therapy Patients [id number] Homar Rubi 07/25/2017 08/24/2017 [facility] OP Therapy Patients [id number] Homar Rubi 08/25/2017 08/25/2017 [facility] Inpatient [id number] Keisha Khanna 09/17/2017 09/20/2017 [facility] Outpatient [id number] Grabiel Otero 05/26/2018 05/27/2018 [facility] Services [id number] 00 Catrachitaine Concepcióndaabram 06/15/2018 06/15/2018 [facility] OP Therapy Patients [id number] Miguel Bell 08/21/2018 09/20/2018 [facility] OP Therapy Patients [id number] Miguel Bell 09/21/2018 10/21/2018 [facility] OP Therapy Patients [id number] Miguel Bell 10/24/2018 11/23/2018 [facility] Procedures Procedure Code Date Perfomer Comments Source Appendectomy [id number] AMADO Willis,[facility] Cholecystectomy [id number] AMADO Willis,[facility] Colon operation [id number] [facility] Assessment and Plan Assessment and Plan Date Source Extracted from:Title: Clinical Document Author: Roxie Crowe Date: 09/20/17 Pulmonary Medicine Progress Note Roxie Crowe PA-C Supervising Physician: Dr. Rangel SUBJECTIVE: Patient seen and examined. Sitting in chair. On room air. Reports some dry cough. Wants to go home. Denies CP, SOB, SEGURA, AP, n/v/d/c. No acute overnight events. OBJECTIVE: Vitals Tmp(F) Tmp(C) Ttype BP MAP Pulse RR SpO2 FIO2 ETCO2 09/20 08:46 ---- ---- ---- - ---- --- 72 25 --- --- --- 09/20 08:34 97.9 36.61 oral ----- --- --- -- --- --- --- 09/20 08:00 ---- ---- ---- 1 75/87 112 71 20 --- --- --- 09/20 07:15 ---- ---- ---- 1 54/75 96 60 16 94 --- --- 09/20 06:00 ---- ---- ---- 1 50/78 97 62 16 92 --- --- 24 Hr Tmax: 98.4F (36.89c) at 09/20 00:0 0 Vital Signs are the last 5 in the past 48 hours. 24 Hr Tmin: 97.5F (36.39c) at 09/19 12: 17 Weights are the last 5 in 60 days, plus initial. Date Wt(kg) Wt(lb) Ht(cm) Ht(in) Method BMI BSA 09/20 53.41 117.50 Measur ed 09/19 54.23 119.31 Measur ed 09/17 (initial) 45.00 99.00 Estimated 17.0 1.43 09/17 162.56 64.00 Stated 24 Hr Point of Care Glucoses 09/20 0606 Glucose POC 114 H 09/19 2107 Glucose POC 108 H 09/19 1605 Glucose POC 209 H Most Recent Scores: 09/20/17 [place] Fall Score 8 09/20/17 Pain Intensity NRS (0-10 ) 0 09/20/17 [place] Coma Score 15 09/20/17 [place] Score 20 (all previously charted lines have been discontinued) (no surgical procedures documented) Labs (Last four charted values) WBC 9.7 (SEP 20) 7.9 (SEP 15) 9.3 (SEP 14) Hgb 13.3 (SEP 17) 13.0 (SEP 15) 14.4 (SEP 14) Hct 39.7 (SEP 20) 38.6 (SEP 15) 43.2 (SEP 14) Plt 190 (SEP 17) 161 (SEP 15) 189 (SEP 14) Na 142 (SEP 17) 138 (SEP 15) 138 (SEP 14) K 3.9 (SEP 20) 3.8 (SEP 15) 4.9 (SEP 14) CO2 28 (SEP 20) 25 (SEP 15) 27 (SEP 14) Cl 107 (SEP 20) 108 (SEP 15) 101 (SEP 14) Cr L 0.49 (SEP 20) L 0.44 (SEP 15) 0.85 (SEP 17) BUN 14 (SEP 20) 8 (SEP 15) 13 (SEP 14) Glucose Random H 108 (SEP 17) H 169 (SEP 15) H 198 (SEP 14) Ca 8.8 (SEP 17) L 8.4 (SEP 15) 9.2 (SEP 14) Troponin <0.02 (SEP 15) <0.02 (SEP 14) <0.02 (SEP 14) CK MB 1.7 (SEP 14) Total CK 37 (SEP 15) 36 (SEP 14) 41 (SEP 17) ASSESSMENT and EXAM:Gen: Afebrile. NAD Head: normocephalic,atraumatic Eyes: PERRL, EOMI ENT: Mouth-MMM, no lesions. Oropharynx is clear. Neck: Supple Chest: slight wheezing, no rales, no crackles Heart: Regular rate and rhythm, no murmurs, rubs or gallops Abdomen: Soft, nontender, active bowel sounds present Ext: no clubbing, cyanosis or edema Skin: no rashes or lesions, warm and dry SPEECH THERAPY ASSISTANT: alert and oriented, no focal neurological defecits Psych: normal mood and affect DIAGNOSIS and PROBLEMS: 1. Acute on probably chronic hypoxemic respiratory failure, COPD exacerbation. 2. Acute bronchitis. 3. Diabetes type 2. 4. Hypertension. 5. Hyperlipidemia. 6. Tobacco abuse. PLAN and TREATMENT: Patient is saturating well on room air. Still has very slight wheezing. Continue po antibiotics and prednisone. Continue her medications and plan of care. Encourage smoking cessation. The patient states that she is trying however she only has a lot of stress in her life as her mother is being transitioned to hospice. Discussed with the nursing staff and the patient and answered all questions. The patient has been advised to FUP with Dr. Rangel in 2 weeks after DC for PFTs. She verbalized understanding and agreed to do so. She will be dc'd home later today. Medications (0) Active Scheduled Meds: None Unscheduled Meds: None PRN Meds: None One Time Meds: None Continuous Infusions: None Addendum by José Miguel Rangel MD on 09/20/2017 23:39 Seen and evaluated with physician blood and plasma laboratory assistant this morning. I personally reviewed her labs, radiological test, medications and records. Appropriate management changes made. Progress note as transcribed by physician blood and plasma laboratory assistant under my direct supervision. I agree with a transcribed note. Extracted from:Title: Clinical Document Author: Joao Jimenez MD Date: 09/18/17 full H&P dictated, #[id number] date/time: 09/17/2017 20:25 09/20/2017 [facility] Plan of Care No Data Provided for This Section Social History Social History Date Source Social History TypeResponse Sexual Sexually active: Yes. Alcohol Current, Type Beer, Wine. Smoking Status Current every day smoker; Type: Cigarettes; Ready to change: No; Concerns about tobacco use in household: No; Lives with someone who smokes; Cigarette Smoking Last 365 Days Yes; Reg Smoking Cessation Counseling No; Number of years: 22; entered on: 09/17/17 04/26/2013 [facility] Social History TypeResponse Sexual Sexually active: Yes. Alcohol Current, Type Beer, Wine. Smoking Status Current every day smoker; Type: Cigarettes; Ready to change: No; Concerns about tobacco use in household: No; Lives with someone who smokes; Cigarette Smoking Last 365 Days Yes; Reg Smoking Cessation Counseling No; Number of years: 22; entered on: 09/17/17 04/26/2013 [facility] Social [facility] TypeResponse Sexual Sexually active: Yes. Alcohol Current, Type Beer, Wine. Smoking Status Current every day smoker; Type: Cigarettes; Ready to change: No; Concerns about tobacco use in household: No; Lives with someone who smokes; Cigarette Smoking Last 365 Days Yes; Reg Smoking Cessation Counseling No; Number of years: 22; entered on: 09/17/17 04/26/2013 [facility] Family History No Data Provided for This Section Advance Directives No Data Provided for This Section Functional Status No Data Provided for This Section
--- OUTSIDE RECORDS SUMMARY | 2020-03-21 21:59 | XMS REPORT | Continuity of Care Document ---
Author Author [facility] t Organization [facility] Address [address] [place] [address] Phone Unavailable Care Team Providers Care Dock Attendant Name Role Phone MD JACK BLANCO PCP aMximo PRESCOTT Attphys Unavailable JACK BLANCO Attphys Unavailable ISAAC BAEZA M.D. Attphys Unavailable Salty Bell Attphys MARILUZ MACEDO M.D. Attphys Unavailable Grabiel Otero Attphys SE, NUCLEAR Attphys Unavailable SE, ECHO Attphys Unavailable Boccardo, Keisha Attphys Rahul Rubi Attphys Niranjan Candelaria Attphys Maximo PRESCOTT Admphys Unavailable Boccardo, Keisha Admphys Payers Payer Name Policy Type Policy Number Effective Date Expiration Date S [facility] Medicare [id number] 2019 00:00:00 [facility] Problems Condition Name Condition Details Condition Category Status Onset Date Resolution Date Last Treatment Date Treating Clinician Comments Source Z96.652 Z96. 652 Active 08/21/2018 [facility] [place] Diagnosis Active 2018-08-21 08:00:00 2018-10-24 14:54:00 Joanne Lan LT KNEE LT K NEE Active 08/11/2018 [facility] [place] Diagnosis Active 2018-08-11 12:00:00 2018-08-21 14:04:00 Joanne Lan Primary osteoarthritis of left knee Primary osteoarthritis of le ft knee Disease Active 2018-06-23 00:00:00 [place] I67.1 - CEREBRAL ANEURYSM, NONRUPTURED I67.1 - CEREBRAL ANEURYSM, NONRUPTURED Active 05/23/2018 [facility] [place] Diagnosis Active 2018-05-23 00:01:00 2018-07-16 15:31:00 M kim Lan I67.1 I67. 1 Active 05/23/2018 [facility] Diagnosis Active 2018-05-23 00:00:00 2018-05-26 11:02:00 Joanne Lan ACUTE HYPOXEMIC RESPIRATORY FAILURE, ACU ACUTE HYPOXEMIC RESPIRATORY FAILURE, ACU Active 09/17/2017 [facility] Diagnosis Ac tive 2017-09-17 00:00:00 2017-09-20 10:04:00 M kim Lan COUGH COUG H Active 09/17/2017 [facility] Active 2017-09-17 00:00:00 2017-09-17 17:19:00 Joanne Lan AMS AMS Active 06/28/2017 [facility] Diagnosis Active 2017-06-28 00:00:00 2017-06-28 20:14:00 M kim Lan FALL FALL Active 04/06/2017 [facility] Diagnosis Active 2017-04-06 00:00:00 2017-04-06 15:34:00 Joanne Lan Cerebral aneurysm Cerebral aneurysm Disease Active 2014-05-13 00:00:00 [facility] A/Care Trauma Fx Hip A/Ca re Trauma Fx Hip Active 05/02/2013 [facility] Diagnosis Active 2013-05-02 06:00:00 2013-06-13 15:06: 40 Joanne Lan FX FEMUR INTRCAPS NOS-CL FX F EMUR INTRCAPS NOS-CL Active 04/26/2013 [facility] Diagnosis Active 2013-04-26 06:00:00 2013-06-13 15:06:40 Joanne Lan UTI UTI Active 04/26/2013 [facility] Diagnosis Active 2013-04-26 06:00:00 2013-06-13 15:06:40 Joanne Lan HPT B ACTE WO CM WO DLTA HPT B ACTE WO CM WO DLTA Active 04/26/2013 [facility] Diagnosis Active 2013-04-26 06:00:00 2013-06-13 15:06:40 Joanne Lan Depression Depr ession Active 04/26/2013 [facility] Diagnosis Active 2013-04-26 06:00:00 2013-06-13 15:06:40 Joanne Lan ESOPHAGEAL REFLUX ESOP HAGEAL REFLUX Active 04/26/2013 [facility] Diagnosis Active 2013-04-26 06:00:00 2013-06-13 15:06:40 Joanne Lan Amyotrophia Amyo trophia Active 04/26/2013 [facility] Diagnosis Active 2013-04-26 06:00:00 2013-06-13 15:06:40 Joanne Lan NUTRITIONAL MARASMUS NUTR ITIONAL MARASMUS Active 04/26/2013 [facility] Diagnosis Active 2013-04-26 06:00:00 2013-06-13 15:06: 40 Joanne Lan FALL NEC FALL NEC Active 04/26/2013 [facility] Diagnosis Active 2013-04-26 06:00:00 2013-06-13 15:06:40 Joanne Lan TROCHANTERIC FX NOS-CLOS TROC HANTERIC FX NOS-CLOS Active 04/26/2013 [facility] Diagnosis Active 2013-04-26 06:00:00 2013-06-13 15:06:40 Joanne Lan BMI LESS THAN 19,ADULT BMI LESS THAN 19,ADULT Active 04/13/2013 [facility] Diagnosis Active 2013-04-13 06:00:00 2013-06-13 15:06:40 Joanne Lan HYPERLIPIDEMIA NEC/NOS HYPE RLIPIDEMIA NEC/NOS Active 04/13/2013 [facility] Diagnosis Active 2013-04-13 06:00:00 2013-06-13 15:06:40 Joanne Lan MONONEURITIS NOS MONO NEURITIS NOS Active 04/13/2013 [facility] Diagnosis Active 2013-04-13 06:00:00 2013-06-13 15:06:40 Joanne Lan ANXIETY STATE NOS ANXI ETY STATE NOS Active 04/13/2013 [facility] Diagnosis Active 2013-04-13 06:00:00 2013-06-13 15:06:40 Joanne Lan HX 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 0; THYROID NODULE Active 10/24/2012 [facility] Diagnosis Active 2012-10-24 00:00:00 2012-11-01 13:13: 00 [facility] [place] ABN SENSORY PROCEPTION, MYELOPATHY ABN SENSORY PROCEPTION, MYELOPATHY Active 09/11/2012 [facility] Diagnosis Ac tive 2012-09-11 00:00:00 2012-10-16 15:48:00 emorixander Lan NECK BACK AND RIGHT SHOULDER PAIN NECK BACK AND RIGHT SHOULDER PAIN Active 06/06/2000 [facility] Diagnosis Active 2000-06-06 00:00:00 2012-12-20 14:30:00 [facility] [place] Diabetes mellitus Diabetes mellitus Problem Active [facility] History of Encounter for antineoplastic chemotherapy H istory of Encounter for antineoplastic chemotherapy Problem Resolved [facility] History of essential hypertension History of essential hypertens ion Problem Resolved [facility] History of hypothyroidism History of hypothyroidism Problem Resolved [facility] History of Neuroendocrine Carcinoma Of The Lung Histor y of Neuroendocrine Carcinoma Of The Lung [facility] History of thyroid disease History of thyroid disease Problem Resolved [facility] Essential (primary) hypertension Essential (primary) hypertensio n Problem Active [facility] Pneumonia Problem Active [facility] Nondisplaced oblique fracture of shaft o f left fibula, subsequent encounter for closed fracture with routine healing Nondisplaced oblique fracture of shaft of left fibula, subsequent encounter for closed fracture with routine healing 11/29/2017 [facility] [place] Problem 2017-11-29 11:43:41 Jesenia Lan Effusion, left knee Effu bassam, left knee 11/29/2017 [facility] [place] Problem 2017-11-29 11: 43:41 [facility] [place] Pain in left knee Pain in left knee 11/29/2017 [facility] [place] Problem 2017-11-29 11: 43:41 [facility] Unilateral primary osteoarthritis, left knee Unilateral primary osteoarthritis, left knee 11/29/2017 [facility] [place] Problem 2017-11-29 11:43:41 [facility] Chondromalacia patellae, left knee Chondromalacia patellae, left knee 11/29/2017 [facility] [place] Problem 2017-11-29 11:43:41 [facility] [place] Difficulty in walking, not elsewhere classified Difficulty in walking, not elsewhere classified 11/29/2017 [facility] [place] Problem 2017-11-29 11:43:41 [facility] orixander Lan Acute respiratory failure with hypoxia Acute respiratory failure with hypoxia 09/23/2017 [facility] Problem 2017-09-23 02:45:09 [facility] [place] Stiffness of left knee, not elsewhere classified Stiffness of left knee, not elsewhere classified 11/29/2017 [facility] [place] Problem 2017-11-29 11:43:41 Hi nasreen Lan Cancer Canc er Resolved Problem 01/26/2013 1stage 4 [facility] Problem Resolved 2013-01-26 21:13:07 [facility] Headache Head ache Resolved Problem 01/26/2013 [facility] Problem Resolved 2013-01-26 21 :13:07 [facility] Hypertension Hype rtension Resolved Problem 01/26/2013 [facility] Problem Resolved 2013-01-26 21 :13:07 [facility] Malignant neoplasm, primary (morphologic abnormality) Malignant neoplasm, 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 Resolved 2013-03-23 20:29:24 [facility] Aneurysm (disorder) Aneu rysm (disorder) Resolved Problem [facility]/02[facility]2019 [facility] [place] Problem Resolved 2019-01-02 14:56:56 [facility] [place] Anxiety (finding) Anxi ety (finding) Resolved Problem 01/02/2019 [facility] [place] Problem Resolved 2019-01-02 14:56:56 Joanne Lan Smoker (finding) Smok er (finding) Resolved Problem 01/02/2019 [facility] [place] Problem Resolved 2019-01-02 14:56:56 [facility] [place] Diarrhea (finding) Diar evans (finding) Resolved Problem 01/02/2019 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 [facility] [place] Problem Res olved 2019-01-02 14:56:56 [facility] jackelin Headache (finding) Head ache (finding) Resolved Problem 01/02/2019 [facility] [place] Problem Resolved 2019-01-02 14:56:56 [facility] [place] Hypercholesterolemia (disorder) Hypercholesterolemia (disorder) Resolved Problem 01/02/2019 [facility] [place] Problem Resolved 2019-01-02 14:56:56 [facility] [place] Hypertensive disorder, systemic arterial (disorder) Hypertensive disorder, systemic arterial (disorder) Resolved Problem 01/02/2019 [facility] [place] Problem Resolved 2019-01-02 14:56:56 [facility] [place] Hypothyroidism (disorder) Hypo thyroidism (disorder) Resolved Problem 01/02/2019 [facility] [place] Problem Resolved 2019-01-02 14:56:56 [facility] monalisa Lan SKIN SENSATION DISTURB SKIN SENSATION DISTURB Active [facility] Diagnosis Active 2012-10-16 15:48:00 M emodania Lan SPINAL CORD DISEASE NOS SPIN AL CORD DISEASE NOS Active [facility] Diagnosis Active 2012-10-16 15:48:00 Joanne Lan NONTOX UNINODULAR GOITER NONT OX UNINODULAR GOITER Active [facility] Diagnosis Active 2012-11-14 09:59:00 Joanne Lan LUMBAGO LUMB AGO Active [facility] Diagnosis Active 2012-12-20 14:30:00 Jesenia Lan CERVICALGIA CERV ICALGIA Active [facility] Diagnosis Active 2012-12-20 14:30:00 [facility] JOINT PAIN-SHLDER JOIN T PAIN-SHLDER Active [facility] Diagnosis Active 2012-12-20 14:30:00 Me morixander [place] PAIN IN LIMB PAIN IN LIMB Active [facility] Diagnosis Active 2013-04-26 11:13:00 Nancytalisha duenas [place] ACUTE RESPIRATORY FAILURE WITH HYPOXIA ACUTE RESPIRATORY FAILURE WITH HYPOXIA Active [facility] Diagnosis Active 2017-09-20 10:04:00 [facility] CHRONIC OBSTRUCTIVE PULMON DISEASE W ACU CHRONIC OBSTRUCTIVE PULMON DISEASE W ACU Active [facility] Diagnosis Active 2017-09-20 10:04:00 [facility] CEREBRAL ANEURYSM, NONRUPTURED CEREBRAL ANEURYSM, NONRUPTURED Active [facility] Diagnosis Active 2018-05-26 11 :02:00 [facility] Cerebral aneurysm, nonruptured Cerebral aneurysm, nonruptured 06/03/2018 12/14/2018 [facility] Problem 20 23-05-29 04:57:10 2018-12-14 11:09:57 2018-12-14 11:09:57 [facility] Displaced fracture of lateral condyle of left tibia, subsequent encounter for closed fracture with routine healing Displaced fractu re of lateral condyle of left tibia, subsequent encounter for closed fracture with routine healing 08/30/2017 11/29/2017 [facility] [place] Problem 2017-08-30 04:18:44 2017-11-29 11:43:41 2017-11-29 11:43:41 [facility] Allergies, Adverse Reactions, Alerts Allergy Name Allergy Type Status Severity Reaction(s) Onset Date Inacti ve Date Treating Clinician Comments Source Meperidine Propensity to adverse reactions to drug Active 2018-06-27 00:00:00 Nausea / vomiting [place] [facility] Codeine Allergy to substance Active 2016-09-23 00:00:00 [facility] meperidine HCl DA Active [place] 2016-07-28 00:00:00 [facility] Meperidine Propensity to adverse reactions Active [place] And Vomiting 2014-05-13 00:00:00 BREAK OUT IN COLD SWEAT [facility] Demerol, 100 MG/ML, Solution Demerol, 100 MG/ML, Solution Active 2013-05-02 00:00:00 [facility] meperidine HCl Allergy to substance Active Mild SWEATS,VOMI TING 2011-01-28 00:00:00 [facility] Demerol TABS drug allergy Active [facility] Demerol HCl Demerol HCl Active [facility] [place] NKFA NKFA Active [facility] vida Family History Family Member Diagnosis Comments Start Date Stop Date Source Unknown Family Member Family history of Diabetes Mellitus Family Hist ory [facility] Mother Family history of Cancer [facility] Father Family history of Heart Disease [facility] Father Family history of Congestive Heart Failure [facility] Sister Family history of Acute Myocardial Infarction [facility] Social History Social Habit Start Date Stop Date Quantity Comments Source History of tobacco use Cigarette Smoker [place] History SDOH Alcohol Std Drinks [facility] History SDOH Alcohol Binge [facility] Sex Assigned At [facility] Tobacco use and exposure 2018-07-05 00:00:00 2018-07-05 00:00:00 Leonidas molina used [place] [facility] History SDOH Alcohol Frequency 2018-06-27 00:00:00 2018-06-27 00:00:0 0 1 [facility] Cigarettes smoked current (pack per day) - Reported 00:00:00 2014-05-13 00:00:00 [facility] Cigarette pack-years 2014-05-13 00:00:00 2014-05-13 00:00:00 [facility] Alcohol intake 2014-05-13 00:00:00 2014-05-13 00:00:00 Current non-drinker of alcohol (finding) [facility] Yves molina Social History 2013-04-26 16:20:33 2013-04-26 16:20:33 [facility] Smoking Status Start Date Stop Date Source Current every day smoker 2018-07-05 00:00:00 [place] Current some day smoker 2014-05-13 00:00:00 [facility] Medications Ordered Medication Name Filled Medication Name Start Date Stop Da te Current Medication? Ordering Clinician Indication Dosage Frequency Signature (SIG) Comments Components Source gabapentin (NEURONTIN) 300 mg capsule 2018-07-04 13:51:32 Yes 1{capsule} Q.5D Take 1 capsule by mouth 2 (two) times a day. [place] metoprolol succinate XL (TOPROL-XL) 100 mg 24 hr tablet 2018-07-04 13:51:32 Yes 100mg Q.5D Take 100 mg by mouth 2 (two) times a day . [place] losartan (COZAAR) 100 MG tablet 2018-07-04 13:51:32 Yes 1{tbl} QD Take 1 tablet by mouth daily. Taken at noon [place] [facility] loperamide (IMODIUM) 2 mg capsule 2018-07-04 13:51:32 Yes 2mg Q.25D Take 2 mg by mouth 4 (four) times a day as needed for diarrhea. [place] levothyroxine sodium (LEVOTHYROXINE ORAL) 2018-07-04 13:51:32 Yes Take by mouth. [place] fluticasone-vilanterol (BREO ELLIPTA) 10 0-25 mcg/dose blister with device powder for inhalation 2018-07-04 13:51:32 Yes QD Inhale 1 inhalations once daily. [place] Gabapentin 300 MG Oral Capsule Gabapentin 300 MG Oral Capsul e 2018-06-08 00:00:00 Yes RADHA HENSON M.D. Q0.5D TAKE 1 CAPSULE TWICE DAILY. [facility] Omnipaque 350 injectable solution 2018-05-26 18:00:00 Yes Notes: (same as:Omnipaque 350). WASTE: F/P - Black; E - [facility] Dulera 200-5 MCG/ACT Inhalation Aerosol Dulera 200-5 MCG/ACT Inhalation Aerosol 2018-05-08 00:00:00 Yes RADHA HENSON M.D. INHALE 2 PUFFS AT 12 HOUR INTERVALS (MORNING AND EVENING). [facility] Robitussin To Go Cgh/Chest DM 100-10 MG/5ML LIQD Robit ussin To Go Cgh/Chest DM 100-10 MG/5ML LIQD 2018-05-08 00:00:00 Yes RADHA Mcdaniel 5 Q4H TAKE 5 ML EVERY 4 HOURS [facility]ED. [facility] D3 Super Strength 2000 UNIT Oral Capsule D3 Super Stre ngth 2000 UNIT Oral Capsule 2018-05-08 00:00:00 Yes RADHA HENSON M.D. qd [facility] Cephalexin 500 MG Oral Tablet Cephalexin 500 MG Oral Tablet 2017 00:00:00 Yes RADHA HENSON M.D. Q0.3333D TAKE 1 TABLE T 3 TIMES DAILY. [facility] Citalopram Hydrobromide 10 MG Oral Tablet Citalopram H ydrobromide 10 MG Oral Tablet 2018-05-08 00:00:00 Yes RADHA HENSON M.D. 1 QD TAKE 1 TABLET DAILY. [facility] raNITIdine HCl - 150 MG Oral Capsule raNITIdine HCl - 150 MG Oral Capsule 2018-05-08 00:00:00 Yes RADHA HENSON M.D. TAKE 1 CAPSULE AT BEDTIME. [facility] Levofloxacin 500 MG Oral Tablet [Levaquin] 2017-09-20 12:45:00 Yes 500 mg = 1 tab, PO, Q24H, X 7 day, # 7 tab, 0 Refill(s), Pharmacy: [facility] [address] [place] [address] [place] predniSONE 10 mg oral tablet 2017-09-20 12:45:00 Yes See Special Instructions, PO, Daily, 4 tabs daily x 4 days, 3 tabs daily x 4 days, 2 tabs daily x 4days, 1 tab daily x 4 days, X 16 day, # 42 tab, 0 Refill(s), Pharmacy: [facility] [address] [place] [address] [place] Thyroxine 2017-09-19 11:30:00 No Notes: Take 1 hour before or 2 hours after meal; Enteral feeds may interefere with the absorption of this medication.(Same as:Levothroid, Synthroid) [facility] gabapentin 300 MG Oral Capsule 2017-09-19 02:00:00 No Notes: (Same as: Neurontin) [facility] Clonazepam 2017-09-18 22:00:00 No Notes: (S ezequiel As: KlonoPIN) [facility] [place] Buspirone 2017-09-18 22:00:00 No Notes: (Sa me As: BuSpar) Joanne Lan please bring pt's own med (APAP/asa/caff) to pharmacy 2017-09-18 21:00:00 No please bring pt's own med (APAP/asa/caff) to pharmacy, reminder, Drug form: MISC, Route: MISC, QSHIFT, 09/18/17 16:00:00 CDT, Duration: 30 day, Stop date: 10/18/17 8:00:00 CDT [facility] [place] Insulin Lispro 2017-09-18 16:54:00 No Notes: (Same as: Humalog ) Roll in palms of hands gently; Do not shake `vigorously. "Single Patient Use Only " WASTE: F/P - Black; E - [facility] [employer] Stable for 28 days at room temperature. Expires in days from Date [facility] [place] Glucagon 2017-09-18 16:54:00 No 1 mg, Route: IM, Drug form: PDR/INJ, PRN, Dosing Weight 50.455, kg, PRN Blood Glucose Results, Start date: 09/18/17 11:54:00 CDT, Duration: 30 day, Stop date: 10/18/17 11:53:00 CDT [facility] [place] Dextrose 50% Syringe 2017-09-18 16:54:00 No 25 gm, 50 mL, Route: IVP, Drug Form: INJ, Dosing Weight 50.455, kg, PRN, PRN Blood Glucose Results, Start date: 09/18/17 11:54:00 CDT, Duration: 30 day, Stop date: 10/18/17 11:53:00 CDT [facility] [place] metoprolol tartrate 2017-09-18 15:47:00 No Notes: (Same as: Lopressor) Joanne [place] Hydralazine Hydrochloride 50 MG Oral Tablet 2017-09-18 15:46:00 No Notes: (Same as: Apresoline) May interfere w/enteral feedings Take With Food Joanne Lan Losartan 2017-09-18 15:46:00 No Notes: (Jatinder e as: Cozaar) Joanne Lan Acetaminophen 250 MG / Aspirin 250 MG / Caffeine 65 MG Oral Tablet 2017-09-18 15:19:00 No 1 tab, Rou te: PO, Drug Form: TAB, Dosing Weight 50.455, kg, Q6H, PRN Headache 4-6, Start date: 09/18/17 10:19:00 CDT, Duration: 30 day, Stop date: 10/18/17 10:18:00 CDT Carla Lan Prednisone 2017-09-18 14:00:00 No Notes: Ta ke with food. Joanne Lan Robitussin-AC oral syrup 2017-09-18 06:43:00 No Notes: (Same As: Robitussin AC) Joanne Lan Dextromethorphan Hydrobromide 2 MG/ML / Guaifenesin 20 MG/ML Oral Solution 2017-09-18 06:20:00 No Notes: (dextromethorphan-guaifenesin 10-100/5 ml LIQ) (Same as: Robitussin-DM) Carla l [place] Azithromycin 2017-09-18 03:00:00 No Notes: (Same As: Zithromax IV) Joanne Lan Ceftriaxone 2017-09-18 03:00:00 No Notes: (Same As: Rocephin). Use with 100 mL NS and infuse over 30 min MEDICATION WASTE Product Size: 1000 mg Product Wasted: ___ mg Joanne Lan Loperamide Hydrochloride 2 MG / Simethic one 125 MG Oral Tablet [Imodium Multi- Symptom Relief] 2017-09-18 02:13:00 No 6 tab, PO, Daily, PRN for loose stool, # 40 tab, 0 Refill(s) Nancyor ial [place] Tramadol 2017-09-18 02:11:00 Yes 50 mg, PO, BID, PRN Pain, # 20 tab, 0 Refill(s) Joanne Lan Albuterol 0.833 MG/ML / Ipratropium Brom francine 0.167 MG/ML Inhalant Solution [DuoNeb] 2017-09-17 23:19:00 No Notes: (S ezequiel as: Duoneb) Joanne Lan Sodium Chloride 0.9% (Bolus) IV 2017-09-17 23:19:00 No 1,000 mL, 1000 ml/hr, Infuse Over: 1 hr, Route: IV, 1,000, Drug form: INJ, ONCE, Priority: STAT, Dosing Weight 45 kg, Start date: 09/17/17 18:19:00 CDT, Stop date: 09/17/17 18:19:00 CDT Joanne Lan Solu-Medrol 2017-09-17 23:17:00 No Notes: (Same as:Solu-MEDROL, A-Methapred) Joanne Lan Sodium Chloride 0.9% (Bolus) IV 2017-09-17 23:17:00 No 500 mL, Infuse Over: 1 hr, Route: IV, ONCE, Priority: STAT, Dosing Weight 45 kg, Start date: 09/17/17 18:17:00 CDT, Stop date: 09/17/17 18:17:00 CDT [facility] [place] Saline Flush 0.9% 2017-09-17 20:23:00 No Notes: (Same as: BD Posiflush) [facility] acetaminophen-hydrocodone 325 mg-10 mg oral tablet 2017-04 02:23:00 Yes 1 tab, PO, Q6H, PRN Pain, X 5 day, # 20 tab, 0 Refill(s) [facility] Zofran 2017-04-07 02:02:00 No 4 mg, Route: IVP, Drug form: INJ, ONCE, Dosing Weight 59.091, kg, Priority: STAT, Start date: 04/06/17 21:02:00 CDT, Stop date: 04/06/17 21:02:[facility] Sulfate 2017-04-07 02:02:00 No 4 mg, Route: IVP, ONCE, Dosing Weight 59.091, kg, Priority: STAT, Start date: 04/06/17 21:02:00 CDT, Stop date: 04/06/17 21:02:00 CDT Carla Lan hydrALAZINE 2017-04-06 22:27:00 No 10 mg, Route: IV, ONCE, Dosing Weight 59.091, kg, Start date: 04/06/17 17:27:00 CDT, Stop date: 04/06/17 17:27:00 CDT [facility] morphine Sulfate 2017-04-06 22:27:00 No 4 mg, Route: IVP, ONCE, Dosing Weight 59.091, kg, Priority: STAT, Start date: 04/06/17 17:27:00 CDT, Stop date: 04/06/17 17:27:00 CDT Carla Bazanan 2017-04-06 22:27:00 No 4 mg, Route: IVP, Drug form: INJ, ONCE, Dosing Weight 59.091, kg, Priority: STAT, Start date: 04/06/17 17:27:00 CDT, Stop date: 04/06/17 17:27:00 CDT Hi nasreen Lan metoprolol tartrate 2017-04-06 20:26:00 No Notes: (Same as: Lopressor) Joanne Lan labetalol 2017-04-06 20:19:00 No Notes: (Same as: Normodyne, Trandate) Push over 2 minutes Give bolus over 2-3 minutes. [facility] [place] acetaminophen-hydrocodone 325 mg-10 mg oral tablet 1 20:07:00 No 1 tab, Route: PO, Dr chava Form: TAB, Dosing Weight 59.091, kg, ONCE, STAT, Start date: 04/06/17 15:07:00 CDT, Stop date: 04/06/17 15:07:00 CDT [facility] ipratropium (ATROVENT) 0.03 % nasal spray 2014-05-13 22:19:01 Yes 2{spray} [id number] 2 sprays by Nasal route 3 (three) jude es daily. [facility] gabapentin (NEURONTIN) 100 MG capsule 2014-05-13 22:19:01 Y es 100mg QD Take 100 mg by mouth daily. TAKES [address] [facility] levothyroxine (SYNTHROID, LEVOTHROID) 175 MCG tablet 2 22:19:01 Yes 175ug QD Take 175 mcg by mouth daily. [facility] metoprolol (TOPROL-XL) 100 MG 24 hr tablet 2014-05-13 22:19:01 Yes 100mg Q.5D Take 100 mg by mouth 2 (two) times daily. [facility] hydrALAZINE (APRESOLINE) 50 MG tablet 2014-05-13 22:19:01 Y es 50mg Q.5D Take 50 mg by mouth 2 (two) times daily. [facility] clonazePAM (KLONOPIN) 0.5 MG tablet 2014-05-13 22:19:01 Yes .5mg Take 0.5 mg by mouth 2 (two) times daily as needed for Anxiety. [facility] busPIRone (BUSPAR) 15 MG tablet 2014-05-13 22:19:01 Yes 15mg Q.5D Take 15 mg by mouth 2 (two) times daily. [facility] loperamide (IMODIUM A-D) 2 mg tablet 2014-05-13 22:19:01 Ye s 2mg Take 2 mg by mouth 4 (four) times daily as needed for Diarrhea. [facility] ranitidine (ZANTAC) 150 MG tablet 2014-05-13 22:19:01 Yes 150mg Take 150 mg by mouth as needed for Heartburn. [facility] acetaminophen (TYLENOL) 500 MG tablet 2014-05-13 22:19:01 Y es 500mg Take 500 mg by mouth every 6 (six) hours as needed for Pain. [facility] EQL Migraine Formula, 250-250-65 MG, Tablet 2013-05-02 00: 00:00 [facility] Nitrofurantoin Macrocrystal, 50 MG, Capsule 2013-05-02 00: 00:00 [facility] BusPIRone HCl, 15 MG, Tablet 2013-05-02 00:00:00 Chen Mullen [facility] Ipratropium [place], 0.03 %, Solution 2013-05-02 00:00:00 [facility] vida [place], 5-325 MG, Tablet 2013-05-02 00:00:00 Chen arias [facility] Losartan Potassium, 100 MG, Tablet 2013-05-02 00:00:00 Chen Caina nn Zantac, 150 MG, Tablet 2013-05-02 00:00:00 Chen [facility]ullen [facility] Metoprolol Tartrate, 100 MG, Tablet 2013-05-02 00:00:00 [facility] HydrALAZINE HCl, 50 MG, Tablet 2013-05-02 00:00[facility]00 [facility] Gab[facility], 300 MG, Capsule 2013-05-02 00:00:00 [facility] ClonazePAM, 0.5 MG, Tablet 2013-05-02 00:00:00 Chen [facility]ullen [facility] Levothyroxine Sodium, 50 MCG, Tablet 2013-05-02 00:00:00 [facility] ermann Losartan Potassium 100 MG Oral Tablet Losartan Potassium 100 MG Oral Tablet 2011-09-13 00:00:00 Yes JACQUE RING M.D. 1 QD TAKE 1 TABLET DAILY [facility] clonAZEPAM (KlonoPIN) 0.5 MG tablet 2010-05-12 00:00:00 Yes 1{tbl} Q.5D Take 1 tablet by mouth 2 (two) times a day. [place] Metoprolol Tartrate 100 MG Oral Tablet Metoprolol Tartrate 100 M G Oral Tablet Yes Q0.5D TAKE 1 TABLET TWICE DAILY. [facility] cloNIDine HCl - 0.1 MG Oral Tablet cloNIDine HCl - 0.1 MG Oral Tablet Yes LENO CASTANON, TAKE 2 TABLETS NEEDED. [facility] clonazePAM 0.5 MG Oral Tablet clonazePAM 0.5 MG Oral Tablet Yes TAKE 1 TABLET EVERY 12 HOURS NEEDED. [facility] Ipratropium [place] 0.03 % Nasal Solution Ipratropium [place] 0.03 % Nasal Solution Yes USE 2 SPRAYS IN EACH NOSTRIL DAILY. [facility] Albuterol Sulfate (Proair Hfa Inhaler*) 8.5 Gm INH Alb uterol Sulfate (Proair Hfa Inhaler*) 8.5 Gm INH Yes [facility] Aspirin (Aspir-Low) 81 Mg TABLET. Aspirin (Aspir-Low) 81 Mg TABLET. Yes 1 [facility] Buspirone Hcl Buspirone Hcl Yes 15 Twice A Day [facility] Clonazepam Clonazepam Yes 2 Twice A Day as nee ded for Anxiety [facility] Gabapentin Gabapentin Yes 300 Daily [facility] Ipratropium [place] Ipratropium [place] Yes [facility] Levothyroxine Sodium Levothyroxine Sodium Yes 125 Daily [facility] Metoprolol Tartrate Metoprolol Tartrate Yes 100 Twice A Day [facility] Ranitidine Hcl Ranitidine Hcl Yes 1 Daily [facility] Tramadol Hcl (Ultram) 50 Mg TABLET Tramadol Hcl (Ultram) 50 Mg TABLET Yes 50 Every 8 Hours as needed for Pain [facility] Vital Signs Vital Name Observation Time Observation Value Comments Source Body Temperature 2020-03-21 11:31:00 98.4 [degF] [facility] Weight 2020-03-20 20:03:00 103.01 [lb_av] [facility] BMI (Body Mass Index) 2020-03-20 20:03:00 17.7 kg/m2 [facility] BP Systolic 2018-06-08 10:07:00 152 mm[Hg] Location: LUE; Positi on: Sitting [facility] BP Diastolic 2018-06-08 10:07:00 100 mm[Hg] Location: LUE; Positi on: Sitting [facility] Height 2018-06-08 10:07:00 64 [in_us] [facility] Weight 2018-06-08 10:07:00 106 [lb_av] [facility] Body Mass Index Calculated 2018-06-08 10:07:00 18.2 kg/m2 [facility] Heart Rate 2018-06-08 10:07:00 74 /min Location: L Radial; Q uality: Normal [facility] BP Systolic 2018-05-15 16:50:00 142 mm[Hg] Location: RUE; Positi on: Sitting [facility] BP Diastolic 2018-05-15 16:50:00 90 mm[Hg] Location: RUE; Positi on: Sitting [facility] Height 2018-05-15 16:50:00 64 [in_us] [facility] Weight 2018-05-15 16:50:00 104 [lb_av] [facility] Body Mass Index Calculated 2018-05-15 16:50:00 17.85 kg/m2 [facility] Heart Rate 2018-05-15 16:50:00 63 /min Location: R Radial; Q uality: Normal [facility] Respitory Rate 2017-09-20 13:46:00 Hiram Shelton Temperature Oral (F) 2017-09-20 13:34:00 97.9 F [facility] Respitory Rate 2017-09-20 13:00:00 Hiram Shelton Systolic (mm Hg) 2017-09-20 13:00:00 [facility] Diastolic (mm Hg) 2017-09-20 13:00:00 [facility] [place] Respitory Rate 2017-09-20 12:15:00 [facility] [place] Systolic (mm Hg) 2017-09-20 12:15:00 [facility] Diastolic (mm Hg) 2017-09-20 12:15:00 [facility] [place] Systolic (mm Hg) 2017-09-20 11:00:00 [facility] [place] Diastolic (mm Hg) 2017-09-20 11:00:00 [facility] Temperature Oral (F) 2017-09-20 09:00:00 98.1 F [facility] Temperature Oral (F) 2017-09-20 05:00:00 98.4 F [facility] BMI Calculated 2017-09-18 02:16:00 [facility] Weight 2017-09-18 02:16:00 [facility] [place] Height 2017-09-18 02:16:00 162.56 cm [facility] Height 2017-09-17 20:17:00 162.56 cm [facility] [place] Heart Rate 2017-09-17 20:17:00 [facility] [place] Weight 2017-09-17 20:17:00 [facility] [place] BMI Calculated 2017-09-17 20:17:00 [facility] [place] Systolic (mm Hg) 2017-04-07 03:30:00 [facility] [place] Diastolic (mm Hg) 2017-04-07 03:30:00 [facility] [place] Respitory Rate 2017-04-07 03:30:00 [facility] Systolic (mm Hg) 2017-04-07 02:13:00 [facility] Diastolic (mm Hg) 2017-04-07 02:13:00 [facility] [place] Heart Rate 2017-04-07 02:13:00 [facility] Temperature Oral (F) 2017-04-07 02:11:00 99.5 F [facility] Heart Rate 2017-04-07 02:11:00 [facility] Systolic (mm Hg) 2017-04-07 02:11:00 [facility] Diastolic (mm Hg) 2017-04-07 02:11:00 [facility] Heart Rate 2017-04-07 01:00:00 [facility] [place] Temperature Oral (F) 2017-04-06 22:49:00 99.2 F [facility] Respitory Rate 2017-04-06 20:16:00 [facility] Weight 2017-04-06 20:01:00 [facility] [place] BMI Calculated 2017-04-06 20:01:00 [facility] Temperature Oral (F) 2017-04-06 20:01:00 99.4 F [facility] [place] Height 2017-04-06 20:01:00 157.48 cm [facility] Respitory Rate 2017-04-06 20:01:00 [facility] Procedures Procedure Date / Time Performed Performing Clinician Eboni e Computed tomography of brain without radiopaque contrast 2020-03 00:00:00 [facility] X-ray of chest, two views 2019-06-12 00:00:00 CH I [facility] History of Appendectomy [facility] History of Gallbladder Surgery [facility] History of Gastric Surgery Unive [facility] Appendectomy [facility] Cholecystectomy [facility] Colon operation [facility] Plan of Care Planned Activity Planned Date Details Comments Source Future Scheduled Test 2020-01-05 00:00:00 INFLUENZA VACCINE [code = INFLUENZA VACCINE] [facility] Future Scheduled Test 2008 00:00:00 65+ PNEUMOCOCCAL V ACCINE (1 of 1 - PPSV23) [code = 65+ PNEUMOCOCCAL VACCINE (1 of 1 - PPSV23)] [facility] Future Scheduled Test 1993 00:00:00 COLONOSCOPY SCREEN ING [code = COLONOSCOPY SCREENING] [facility] Scheduled Test 1993 00:00:00 SHINGLES VACCINES (#1) [code = SHINGLES VACCINES (#1)] [facility] Encounters Start Date/Time End Date/Time Encounter Type Admission Type [facility] Care Department Encounter ID Source 2020-03-20 17:19:00 2020-03-20 17:19:00 Admitted Inpatient 1 JL PRESCOTT [facility] [id number] [facility] 2019-06-12 13:28:00 2019-06-12 13:28:00 Registered Clinic 3 JACK BLANCO [facility] [id number] [facility] 2018-12-06 10:00:00 2018-12-06 10:00:00 Appointment; ISAAC BAEZA M.D. ABBAS, AAMIR, M.D. [facility] [id number] [facility] 2018-10-24 14:54:00 2018-11-22 23:59:00 Outpatient Miguel Bell [id number] 2018-11-15 14:00:00 2018-11-15 14:00:00 Appointment; MARILUZ MACEDO M.D. NASCIMBENE, ANGELO, M.D. [facility] [id number] [facility] 2018-11-01 10:00:00 2018-11-01 10:00:00 Appointment; MARILUZ MACEDO M.D. NASCIMBENE, ANGELO, M.D. [facility] [id number] [facility] 2018-09-21 13:30:00 2018-10-20 23:59:00 Outpatient Miguel Bell [id number] 2018-10-09 13:40:00 2018-10-09 13:40:00 Appointment; MARILUZ MACEDO M.D. NASCIMBENE, ANGELO, M.D. [facility] Cardiology at [facility] [id number] [facility] 2018-08-21 14:04:00 2018-09-19 23:59:00 Outpatient Miguel Bell [id number] 2018-06-15 14:30:00 2018-06-15 14:30:00 Outpatient Grabiel Otero [facility] [id number] 2018-06-08 09:20:00 2018-06-08 09:20:00 Appointment; MARILUZ MACEDO M.D. NASCIMBENE, ANGELO, M.D. UTP [facility] at [facility] 48 [id number] [facility] 2018-05-26 10:52:00 2018-05-26 23:59:00 Outpatient Grabiel Otero [facility] [id number] 2018-05-23 08:45:00 2018-05-23 08:45:00 Appointment; SE, NUCLEAR SE, NUCLEAR UTP UTP [id number] [facility] 2018-05-16 11:00:00 2018-05-16 11:00:00 Appointment; SE, ECHO SE, ECHO UTP UTP [id number] [facility] 2018-05-16 08:45:00 2018-05-16 08:45:00 Appointment; SE, NUCLEAR SE, NUCLEAR UTP Cardiology at [facility] [id number] [facility] 2018-05-08 13:00:00 2018-05-08 13:00:00 Appointment; MARILUZ MACEDO M.D. NASCIMBENE, ANGELO, M.D. UTP Cardiology at [place] [id number] [facility] 2017-09-17 15:05:00 2017-09-20 10:13:00 Outpatient Rae Khanna [facility] [id number] 2017-08-25 08:00:00 2017-08-25 08:00:00 Outpatient Rubi, V ictor Van [id number] 2017-07-25 11:45:00 2017-08-23 23:59:00 Outpatient Rubi, V ictor Van [id number] 2017-06-17 13:00:00 2017-07-16 23:59:00 Outpatient Rubi, V ictor Van [id number] 2017-04-06 14:43:00 2017-04-06 23:09:00 Outpatient Clark oConey [facility] [id number] 2013-02-16 15:32:00 2013-03-17 23:59:00 Outpatient MHIE MHIE [id number] [facility] 2013-02-16 15:32:00 2013-03-17 23:59:00 Outpatient MHIE MHIE [id number] [facility] 2013-02-16 15:32:00 2013-03-17 23:59:00 Outpatient MHIE MHIE [id number] [facility] 2013-02-16 15:32:00 2013-03-17 23:59:00 Outpatient MHIE MHIE [id number] [facility] 2013-02-16 15:32:00 2013-03-17 23:59:00 Outpatient MHIE MHIE [id number] [facility] Results Test Description Test Time Test Comments Results Result Comments Source Blood leukocytes automated count (number/volume) 2020-03-21 04:42:00 Test Item White Blood Count (test code = 6690-2) 10.43 4.8-10.8 [facility] erythrocytes automated count (number/volume)2020-03-21 04:42:00* Test Item Value Reference Range Interpretation Comments Red Blood Count (test code = 789-8) 3.64 3.6-5.1 [facility] hemoglobin measurement (moles/volume)2020-03-21 04:42:00* Test Item Value Reference Range Interpretation Comments Hemoglobin (test code = 26845-3) 11.2 12.0-16.0 [facility] blood hematocrit (volume fraction)2020-03-21 04:42:00* Test Item Value Reference Range Interpretation Comments Hematocrit (test code = 4544-3) 34.0 34.2-44.1 [facility] erythrocyte mean corpuscular [id number] 04:42:00* Test Item Value Reference Range Interpretation Comments Mean Corpuscular Volume (test code = 787-2) 93.4 81-99 [facility] erythrocyte mean corpuscular hemoglobin (mass per erythrocyte)2020-03-21 04:42:00* Test Item Value Reference Range Interpretation Comments Mean Corpuscular Hemoglobin (test code = 785-6) 30.8 28-32 [facility] erythrocyte mean corpuscular hemoglobin concentration measurement (mass/volume)2020-03-21 04:42:00* Test Item Value Reference Range Interpretation Comments Mean Corpuscular Hemoglobin Concent (test code = 786-4) 32.9 31-35 [facility]oundRDW [id number]-[id number] 04:42:00* Test Item Value Reference Range Interpretation Comments Red Cell Distribution Width (test code = 99870-7) 13.9 11.7 -14.4 [facility] blood platelet count (count/volume)2020-03-21 04:42:00* Test Item Value Reference Range Interpretation Comments Platelet Count (test code = 777-3) 134 140-360 [facility]oundAutom[facility] blood segmented neutrophil count as percentage of total [id number] 04:42:00* Test Item Value Reference Range Interpretation Comments Neutrophils (%) (Auto) (test code = 54010-3) 78.4 38.7-80.0 [facility] blood lymphocyte count as percentage ot total gcecojluha4116-56-69 04:42:00* Test Item Value Reference Range Interpretation Comments Lymphocytes (%) (Auto) (test code = 736-9) 7.2 18.0-39.1 [facility] blood monocyte count as percentage of total lrncqcijlg1049-71-92 04:42:00* Test Item Value Reference Range Interpretation Comments Monocytes (%) (Auto) (test code = 5905-5) 12.7 4.4-11.3 [facility] blood eosinophil count as percentage of total pwxaagwely4072-00-67 04:42:00* Test Item Value Reference Range Interpretation Comments Eosinophils (%) (Auto) (test code = 713-8) 0.8 0.0-6.0 [facility] blood basophil count as percentage of total uartetqjiq7533-38-61 04:42:00* Test Item Value Reference Range Interpretation Comments Basophils (%) (Auto) (test code = 706-2) 0.4 0.0-1.0 [facility]oundFluoroscopic procedure less than one hour ntmknvgm1860-28-06 04:42:00* Test Item Value Reference Range Interpretation Comments IM GRANULOCYTES % (test code = IM GRANULOCYTES %) 0.5 0.0- 1.0 [facility] blood neutrophil count 2020-03-21 04:42:00* Test Item Value Reference Range Interpretation Comments Neutrophils # (Auto) (test code = 751-8) 8.2 2.1-6.9 [facility] lymphocytes count (number/volume) 2020-03-21 04:42:00* Test Item Value Reference Range Interpretation Comments Lymphocytes # (Auto) (test code = 89926-0) 0.8 1.0-3.2 [facility] monocytes automated count (number/volume)2020-03-21 04:42:00* Test Item Value Reference Range Interpretation Comments Monocytes # (Auto) (test code = 742-7) 1.3 0.2-0.8 [facility]ound[facility] blood eosinophil count 2020-03-21 04:42:00* Test Item Value Reference Range Interpretation Comments Eosinophils # (Auto) (test code = 711-2) 0.1 0.0-0.4 [facility]ound[facility] blood basophil count (count/volume)2020-03-21 04:42:00* Test Item Value Reference Range Interpretation Comments Basophils # (Auto) (test code = 704-7) 0.0 0.0-0.1 [facility]oundFluoroscopic procedure less than one hour [id number] 04:42:00* Test Item Value Reference Range Interpretation Comments Absolute Immature Granulocyte (auto (yadi t code = Absolute Immature Granulocyte (auto) 0.05 0-0.1 [facility] sodium measurement (moles/volume)2020-03-21 04:42:00* Test Item Value Reference Range Interpretation Comments Sodium Level (test code = 2951-2) 138 136-145 [facility] potassium measurement (moles/volume)2020-03-21 04:42:00* Test Item Value Reference Range Interpretation Comments Potassium Level (test code = 2823-3) 3.2 3.5-5.1 [facility] chloride measurement (moles/volume)2020-03-21 04:42:00* Test Item Value Reference Range Interpretation Comments Chloride Level (test code = 2075-0) 102 98-107 [facility] plasma carbon dioxide, total measurement (moles/volume)2020-03-21 04:42:00* Test Item Value Reference Range Interpretation Comments Carbon Dioxide Level (test code = 2028-9) 24 22-29 [facility] or plasma anion [id number] 04:42:00* Test Item Value Reference Range Interpretation Comments Anion Gap (test code = 22578-5) 15.2 8-16 [facility] plasma urea nitrogen measurement (mass/volume)2020-03-21 04:42:00* Test Item Value Reference Range Interpretation Comments Blood Urea Nitrogen (test code = 3094-0) 12 7-26 [facility] plasma creatinine measurement (mass/volume)2020-03-21 04:42:00* Test Item Value Reference Range Interpretation Comments Creatinine (test code = 2160-0) 0.63 0.57-1.11 [facility] plasma urea nitrogen/creatinine mass [id number] 04:42:00* Test Item Value Reference Range Interpretation Comments BUN/Creatinine Ratio (test code = 3097-3) 19 6-25 [facility]oundEstimated glomerular filtration rate (GFR) sjzbjxkdrrnnf1198-80-63 04:42:00* Test Item Value Reference Range Interpretation Comments Estimat Glomerular Filtration Rate (test code = 595618111) > 60 >60 Ranges were taken from the National Kidney Disease Education Program and the [facility] literature.Reference ranges:60 or greater: Fmbeno03-02 ( for 3 consecutive months): Chronic kidney disease 15 or less: Kidney failureTexas [facility] MoundGlucose alghinpfjll8080-89-05 04:42:00* Test Item Value Reference Range Interpretation Comments Glucose Level (test code = KQE0061) 107 74-118 [facility] plasma calcium measurement (mass/volume)2020-03-21 04:42:00* Test Item Value Reference Range Interpretation Comments Calcium Level (test code = 56274-1) 8.4 8.4-10.2 [facility]oundFluoroscopic procedure less than one hour [id number] 19:58:00* Test Item Value Reference Range Interpretation Comments Lactic Acid Level (test code = Lactic Acid Level) 1.0 0.5- 2.0 [facility]oundUrine color fwqektklwrhmc9137-05-71 18:00:00* Test Item Value Reference Range Interpretation Comments Urine Color (test code = 5778-6) YELLOW YELLOW [facility] MoundUrine [id number] 18:00:00* Test Item Value Reference Range Interpretation Comments Urine Clarity (test code = 73751-7) SL CLOUDY CLEAR [facility] gravity of Urine by Test strip 2020-03-20 18:00:00* Test Item Value Reference Range Interpretation Comments Urine Specific [place] (test code = 5811-5) 1.025 1.010-1.02 5 [facility]oundUrine pH measurement by automated test [id number] 18:00:00* Test Item Value Reference Range Interpretation Comments Urine pH (test code = 75915-3) 6 5-7 [facility]oundUrine leukocyte esterase detection by [id number] 18:00:00* Test Item Value Reference Range Interpretation Comments Urine Leukocyte Esterase (test code = 5799-2) TRACE NEGATIVE [facility]oundUrine nitrite [id number] 18:00:00* Test Item Value Reference Range Interpretation Comments Urine Nitrite (test code = 40047-3) NEGATIVE NEGATIVE [facility]oundUrine protein measurement by test strip (mass/volume)2020-03-20 18:00:00* Test Item Value Reference Range Interpretation Comments Urine Protein (test code = 5804-0) 1+ NEGATIVE [facility]oundUrine glucose [id number] 18:00:00* Test Item Value Reference Range Interpretation Comments Urine Glucose (UA) (test code = 2349-9) NEGATIVE NEGATIVE [facility]oundUrine ketones detection by automated test [id number] 18:00:00* Test Item Value Reference Range Interpretation Comments Urine Ketones (test code = 72095-5) 2+ NEGATIVE [facility]oundUrine urobilinogen measurement by test strip (mass/volume)2020-03-20 18:00:00* Test Item Value Reference Range Interpretation Comments Urine Urobilinogen (test code = 45149-2) 0.2 0.2-1 [facility] total bilirubin measurement (mass/volume)2020-03-20 18:00:00* Test Item Value Reference Range Interpretation Comments Urine Bilirubin (test code = 1978-6) SMALL NEGATIVE [facility] erythrocytes [id number] 18:00:00* Test Item Value Reference Range Interpretation Comments Urine Blood (test code = 62587-2) NEGATIVE NEGATIVE [facility]oundAutomated urine sediment leukocyte count by microscopy (number/high power field)2020-03-20 18:00:00* Test Item Value Reference Range Interpretation Comments Urine WBC (test code = 5821-4) 11-20 0-5 [facility] [facility]ryth[facility] detection in urine sediment by light avnfdmbqsy1681-50-16 18:00:00* Test Item Value Reference Range Interpretation Comments Urine RBC (test code = 10127-7) 6-10 0-5 [facility]oundBacteria detection in urine sediment by light yxomeqeenz3299-31-53 18:00:00* Test Item Value Reference Range Interpretation Comments Urine Bacteria (test code = 40587-9) FEW NONE [facility]oundEpithelial cells detection in urine sediment by light zitxqsjzek7761-65-76 18:00:00* Test Item Value Reference Range Interpretation Comments Urine Epithelial Cells (test code = 80646-0) FEW NONE [facility]oundHyaline casts detection in urine sediment by light hskwxzolud9572-80-01 18:00:00* Test Item Value Reference Range Interpretation Comments Urine Hyaline Casts (test code = 48041-6) 2-5 0-1 [facility]oundMucus detection in urine sediment by light pnexrqptzk7514-80-20 18:00:00* Test Item Value Reference Range Interpretation Comments Urine Mucus (test code = 8247-9) FEW RARE [facility]oundCT BRAIN PU4827-80-40 17:29:00 [facility] 1945 Sex: F [place] [address] Patient Name: LOU MAIER MR #: [id number] : 1945 Age/Sex: 74/F Req #: [id number] [facility] Physician: JL PRESCOTT MD Ordered by: Mare Gaines MD Report #: [id number] Location: [facility] Room/Bed: [place] [address] Procedure: [id number] CT/CT BRAIN WO Exam Date: 03/20 Exam Time: 1616 REPORT STATUS: Signed EXAMINATION: Head CT HISTORY: 74-year- old female status post fall, right hand numbness COMPARISON: None. TECHNIQU E: Helical axial images of the head were obtained. Reformatted coronal and sa gittal images from the axial data. Dose modulation, iterative reconstruction, and/or weight based adjustment of the mA/kV was utilized to reduce the radiat ion dose to as low as reasonably achievable. FINDINGS: Parenchyma : 1. Few scattered and mildly confluent periventricular white matter hypod ensities, likely reflecting nonspecific chronic microvascular ischemic changes . 2. Age indeterminate likely chronic small lacunar infarcts in the bilateral thalami and left frontal parietal cruz radiata. Tiny chronic cortical infar ct in the left posterior cerebellum. 3. No mass or hemorrhage. No CT eviden ce of acute territorial vascular insult. Extra-axial spaces:No abnormal density. No extra-axial fluid collections Brain volume: Normal for age. Ventricles: No hydrocephalus or displacement. Arteries : No density suggestive of thrombus. Dural sinuses: No abnormal density. Foramen magnum: No mass, Chiari malformation, or basilar invagination. Sella: No obvious mass. Paranasal/mastoid sinuses: Imaged porti ons unremarkable. Skull/Scalp: No lytic or blastic lesions. No fracture s. IMPRESSION: 1. No post traumatic intracranial hemorrhage. 2. M ild chronic microvascular ischemic changes and small chronic lacunar infarcts as above. Signed by: Dr. Summer Valdovinos M.D. on 03/20/2020 5:32 PM Dictated By: SUMMER VALDOVINOS MD 31 COPY TO: PEDRO LUIS GAINES MD CHEST SINGLE (PORTABLE)2020-03-20 16:21:00 [facility] : 1945 Sex: F [facility] [address] [facility] [place], [place] [address] Patient Name: LOU MAIER MR #: [id number] : 1945 Age/Sex: 74/F Req #: [id number] Adm Physician: Ordered by: Mare Gaines MD Report #: [id number] Location: ER Room/Bed: Procedure: [id number] DX/CHEST SINGLE (PORTABLE) Exam Date: 03/20/20 Exam Time: 1605 REPORT STATUS: Signed TECHNIQUE: Frontal view of the chest. INDICATION: Y SoB [id number] 1605 COMPARISON: 020 DISCUSSION: Limited evaluation due to portable technique. Lines and hardware: Overlying EKG leads are noted. Heart and mediastinum: Within nor mal limits. Lungs and pleura: Stable hyperexpanded lungs with coarsened inters titial markings. Patchy airspace opacities are noted at the left lung base. Ne gative for large effusion or pneumothorax. Soft tissues and bones: No acute abnormality. IMPRESSION: 1. New patchy airspace opacities the left eagle g base are concerning for atelectasis versus developing consolidation. 2. St able background of COPD changes. Signed by: Denny Rangel MD on 4:22 PM Dictated By: DENNY RANGEL MD 21 Transcribed By: DORINA on 03/20/201621 COPY TO: MARE GAINES MD Influenza virus A and B antigen identification by bjbtwnorkbyzbvglic1939-52-09 16:16:00* Test Item Value Reference Range Interpretation Comments Influenza Virus Types A,B Antigen (test code = 21146-7) NEGATIVE NEGATIVE [facility]oundFluoroscopic procedure less than one hour dunnporf5133-95-72 16:16:00* Test Item Value Reference Range Interpretation Comments Coronavirus (PCR) (test code = Coronavirus (PCR)) NOT DETECTED NOTD ETECTED SARS-COV2/RT-PCRNegative results do not preclude SARS-CoV-2 infection and should not be used as the sole basis for patient management decisions. Negative results must be combined with clinical observations, patient history, and epidemiologi vandana information. A false negative result may occur if a specimen is improperly c ollected, transported or handled.The limit of detection for this assay is 250 co pies/mLThe SARS-CoV-2 test is a rapid, real-time RT-PCR test intended for the qu alitative detection of nucleic acid from SARS-CoV-2 in nasopharyngeal swab speci men collected from individuals suspected of COVID-19 by their healthcare provide r. This test has not been Food and Drug Administration (FDA) cleared or approved and has been authorized by FDA under an Emergency Use Authorization (EUA). This EUA will be effective until the declaration that circumstances exist justifying the authorization of the emergency use of in vitro diagnostic test for detection and or diagnosis of COVID-19 is terminated under section 564(b) of the Act, or the the EUA is revoked under 564(g) of the ACT.Testing performed by [facility] [place] [address]506IFITexas Health [facility] MoundProthrombin time (PT) in platelet poor plasma by coagulation fkjrg3965-30-70 15:58:00* Test Item Value Reference Range Interpretation Comments Prothrombin Time (test code = 5902-2) 13.6 11.9-14.5 [facility] MoundINR in Platelet poor plasma by Coagulation zgmao7598-91-54 15:58:00* Test Item Value Reference Range Interpretation Comments Prothromb Time International Ratio (test code = 6301-6) 0.99 Oral Anticoagulant Therapy INR Values:1. Low Intensity Therapy 1.5 - 2.02 . Moderate Intensity Therapy 2.0 - 3.03. High Intensity Therapy(1) 2.5 - 3. 54. High Intensity Therapy(2) 3.0 - 4.05. Panic Value INR > 5.0 [facility] total bilirubin measurement (mass/volume)2020-03-20 15:58:00* Test Item Value Reference Range Interpretation Comments Total Bilirubin (test code = 1975-2) 0.6 0.2-1.2 [facility]oundFluoroscopic procedure less than one hour voezgydb4466-25-36 15:58:00* Test Item Value Reference Range Interpretation Comments Aspartate Amino Transf (AST/SGOT) (test code = Aspartate Amino Transf (AST/SGOT)) 39 5-34 [facility] or plasma alanine aminotransferase measurement (enzymatic activity/volume)2020-03-20 15:58:00* Test Item Value Reference Range Interpretation Comments Alanine Aminotransferase (ALT/SGPT) (test code = 1742-6) 21 0-55 [facility] or plasma protein measurement (mass/volume)2020-03-20 15:58:00* Test Item Value Reference Range Interpretation Comments Total Protein (test code = 2885-2) 6.2 6.5-8.1 [facility] or plasma albumin measurement (mass/volume)2020-03-20 15:58:00* Test Item Value Reference Range Interpretation Comments Albumin (test code = 1751-7) 2.9 3.5-5.0 [facility]oundPlasma globulin measurement (mass/volume) 2020-03-20 15:58:00* Test Item Value Reference Range Interpretation Comments Globulin (test code = 49749-2) 3.3 2.3-3.5 [facility] or plasma albumin/globulin mass broux4595-15-05 15:58:00* Test Item Value Reference Range Interpretation Comments Albumin/Globulin Ratio (test code = 1759-0) 0.9 0.8-2.0 [facility] or plasma alkaline phosphatase measurement (enzymatic activity/volume)2020-03-20 15:58:00* Test Item Value Reference Range Interpretation Comments Alkaline Phosphatase (test code = 6768-6) 55 40-150 [facility]oundTroponin I measurement by highly sensitive enzyme iyvagyodkkn8608-78-04 15:58:00* Test Item Value Reference Range Interpretation Comments Troponin I (test code = 74804-4) 0.012 0-0.300 [facility]oundCHEST 2 MDATG5348-72-93 15:17:00 [facility] [address] [place] [address] Patient Name: LOU MAIER MR #: [id number] : 1945 Age/Sex: 73/F Req #: [id number] Adm Physician: Ordered by: JACK BLANCO MD Report #: [id number] Location: [facility] Room/Bed: Procedure: [id number] DX /CHEST 2 VIEWS Exam Date: 06/12/19 Exam Time: 1450 REPORT STATUS: Signed EXAM: CHEST 2 VIEWS DATE: 06/12/2019 2:40 PM INDICATION: Cough, congestion COMPARISON: 01/25/2011 FINDINGS/IMPRESSION: There are increased intersti tial and reticulonodular markings present bilaterally suggestive of scarring/f ibrotic change. There is no evidence for large focal consolidation, pneumothor ax, or significant pleural effusion. The cardiomediastinal silhouette is wi thin normal limits. The pulmonary vasculature is not engorged. Atherosclerotic calcifications are noted within the thoracic aorta. Degenerative changes noted of the visualized spine. No acute osseous abnormality is identified. Signed by: Dr. Gui Fish MD on 06/12/2019 3:19 PM Dictated By: GUI FISH MD 151 Trans cribed By: DORINA on 06/12/191518 COPY TO: JACK BLANCO MD - CTA ZKAD4551-23-30 16:47:00 Name: LOU MAIER [facility] : 1945 Age/S: 73 / F [address] [facility] Unit #: [id number] Loc: [place] [address] Phys: Genna Tyson MD Acct: [id number] Dis Date: Status: REG ER PHONE #: [phone] Exam Date: 03/03/2019 6759 FAX #: [phone] Reason: dizziness h/o aneurysm EXAMS: CPT CODE: [id number] CTA HEAD 28232 HISTORY: dizziness h/o aneurysm TECHNIQUE: Cerebral CT angiography was acquired in the axial plane after bolus IV administration of 200 mL of Isovue-370 contrast. Multiplanar, maximum intensity projection (MIP), and volume rendered reconstructions were created on the 3-D workstation. Automated exposure control for dose reduction. COMPARISON: None FINDINGS: Bilateral distal cervical and petrous ICA segments are patent. Atherosclerotic vascular calcification of the bilateral cavernous and supraclinoid ICA segments without stenosis. Bilateral A1 and distal HARSH segments are patent. Anterior communicating artery is present. Bilateral M1 and distal MCA branches are patent. 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 Bilateral distal vertebral arteries are patent; extremely diminutive caliber on the left. Basilar artery is patent. Bilateral PICAs and SCAs are patent. Bilateral P1 and distal TRAY LINE WORKER segments are patent. Bilateral posterior communicating arteries are nonvisualized. No aneurysm. Dural venous sinuses and proximal internal jugular veins are patent. No CT evidence of acute infarct. Moderate chronic microvascular ischemic changes. Mild parenchymal atrophy. No abnormal brain enhancement. IMPRESSION: Inferiorly projecting 5 mm saccular aneurysm at the distal right M1 branch point. Otherwise unremarkable cerebral CT angiography. at 1647 Reported and signed by: Kathi Carrillo D.O. PAGE 1 Signed Report (CONTINUED) Name: LOU MAIER [facility] : 1945 Age/S: 73 / F [address] [facility] Unit #: [id number] Loc: [place] [address] Phys: Genna Tyson MD Acct: [id number] Dis Date: Status: REG ER PHONE #: [phone] Exam Date: 03/03/2019 1637 FAX #: [phone] Reason: dizziness h/o aneurysm EXAMS: CPT CODE: [id number] CTA HEAD 55392 <Continued> CC: Genna Tyson MD Technologist:Jordyn Camargo CTDI: DLP: Trnscb Date/Time: 03/03/2019 (355) [email or web address] Orig Print D/T: S: 03/03/2019 (2764) PAGE 2 Signed Report URINALYSIS YKUWWSRW4301-93-41 16:42:00* Test Item Value Reference Range Interpretation Comments UA COLOR (test code = COLU) YELLOW YELLOW UA APPEARANCE (test code = APPU) CLEAR CLEAR UA GLUCOSE DIPSTICK (test code = DGLUU) norm mg/dL NEGATIVE UA BILIRUBIN DIPSTICK (test code = BILU) NEGATIVE mg/dL NEGATIVE UA KETONE DIPSTICK (test code = KETU) neg mg/dL NEGATIVE UA SPECIFIC GRAVITY (test code = SGU) 1.010 1.001-1.035 UA BLOOD DIPSTICK (test code = ROSALVA) neg Sergio/uL NEGATIVE UA PH DIPSTICK (test code = VERNON) 5.0 5.0-8.0 UA PROTEIN DIPSTICK (test code = PROU) neg mg/dL Neg-15 UA UROBILINIOGEN DIPSTICK (test code = URO) norm mg/dL 0.0-0.2 UA NITRITE DIPSTICK (test code = HAM) NEGATIVE NEGATIVE UA LEUKOCYTE ESTERASE DIPSTICK (test code = LEUU) neg uL NEGA TIVE UA WBC (test code = WBCU) 0-1 per HPF 0-5 UA RBC (test code = RBCU) 0-2 per HPF 0-5 UA EPITHELIAL CELLS (test code = EPIU) Rare (0-1/hpf) per HPF Few UA BACTERIA (test code = BACU) FEW per HPF NONE Urine Source? Clean CatchCOMPREHENSIVE METABOLIC [id number] 16:05:00* Test Item Value Reference Range Interpretation Comments SODIUM (test code = NA) 141 mmol/L 136-145 N POTASSIUM (test code = K) 5.1 mmol/L 3.5-5.1 N CHLORIDE (test code = CL) 105 mmol/L 101-109 N CARBON DIOXIDE (test code = CO2) 28.6 mmol/L 21-32 N ANION GAP (test code = GAP) 13 mmol/L 10-20 N GLUCOSE (test code = GLU) 181 mg/dL 74-106 H BLOOD UREA NITROGEN (test code = BUN) 12 mg/dL 3-21 N CREATININE (test code = CREAT) 0.92 mg/dL 0.55-1.3 N BUN/CREATININE RATIO (test code = BUN/CREA) 13.0 10-20 N TOTAL PROTEIN (test code = PROT) 6.6 g/dL 6.5-8.4 N ALBUMIN (test code = ALB) 3.5 g/dL 3.4-4.8 N GLOBULIN (test code = GLOB) 3.1 G/DL 1-10 N ALBUMIN/GLOBULIN RATIO (test code = A/G) 1.13 RATIO 0.75-1.50 N CALCIUM (test code = CA) 8.8 mg/dL 8.4-10.2 N BILIRUBIN TOTAL (test code = BILT) 0.20 mg/dL 0.0-1.0 N SGOT/AST (test code = AST) 18 U/L 6-32 N SGPT/ALT (test code = ALT) 15 U/L 12-78 N N ote: Change in REFERENCE RANGE due to new reagent method. ALKALINE PHOSPHATASE TOTAL (test code = ALKP) 125 U/L 38-126 N [id number] 16:05:00* Test Item Value Reference Range Interpretation Comments MAGNESIUM (test code = MAG) 1.9 mg/dL 1.6-2.3 N CPK-MB [id number] 16:05:00* Test Item Value Reference Range Interpretation Comments CREATINE KINASE (CK) (test code = CK) 56 U/L 26-192 N CKMB (test code = CKMBT) 1.4 ng/mL 0.0-5.0 N RELATIVE % INDEX (test code = REL%) 2.5 % PIGFHXXZ-[id number] 16:05:00* Test Item Value Reference Range Interpretation Comments TROPONIN-I (test code = TROPI) <0.015 ng/mL 0.00-0.056 N COMPREHENSIVE METABOLIC [id number] 15:50:00* Test Item Value Reference Range Interpretation Comments SODIUM (test code = NA) 141 mmol/L 136-145 N POTASSIUM (test code = K) 5.1 mmol/L 3.5-5.1 N CHLORIDE (test code = CL) 105 mmol/L 101-109 N CARBON DIOXIDE (test code = CO2) 28.6 mmol/L 21-32 N ANION GAP (test code = GAP) 13 mmol/L 10-20 N GLUCOSE (test code = GLU) 181 mg/dL 74-106 H BLOOD UREA NITROGEN (test code = BUN) 12 mg/dL 3-21 N CREATININE (test code = CREAT) 0.92 mg/dL 0.55-1.3 N BUN/CREATININE RATIO (test code = BUN/CREA) 13.0 10-20 N TOTAL PROTEIN (test code = PROT) gram/dL 6.4-8.2 ALBUMIN (test code = ALB) g/dL 3.4-5.0 GLOBULIN (test code = GLOB) g/dL 2.7-4.2 ALBUMIN/GLOBULIN RATIO (test code = A/G) 0.75-1.50 CALCIUM (test code = CA) 8.8 mg/dL 8.4-10.2 N BILIRUBIN TOTAL (test code = BILT) mg/dL 0.2-1.2 SGOT/AST (test code = AST) IUnit/L 15-37 SGPT/ALT (test code = ALT) U/L 10-69 ALKALINE PHOSPHATASE TOTAL (test code = ALKP) IUnit/L 45-117 [id number] 15:50:00* Test Item Value Reference Range Interpretation Comments MAGNESIUM (test code = MAG) mg/dL 1.8-2.4 CPK-MB [id number] 15:50:00* Test Item Value Reference Range Interpretation Comments CREATINE KINASE (CK) (test code = CK) IUnit/L 26-208 CKMB (test code = CKMBT) ng/mL 0-6.0 RELATIVE % INDEX (test code = REL%) % [id number]-[id number] 15:50:00* Test Item Value Reference Range Interpretation Comments TROPONIN-I (test code = TROPI) ng/mL 0-0.045 CBC W/AUTO [id number] 15:43:00* Test Item Value Reference Range Interpretation Comments WHITE BLOOD CELL (test code = WBC) 6.7 K/mm3 4.5-12.5 N RED BLOOD CELL (test code = RBC) 4.77 mill/mm3 3.7-5.2 N HEMOGLOBIN (test code = HGB) 14.3 gram/dL 11.5-15.5 N HEMATOCRIT (test code = HCT) 46.1 % 36.0-46.0 H MEAN CELL VOLUME (test code = MCV) 96.6 fL 80-98 N MEAN CELL HGB (test code = MCH) 30.0 picogram 27.0-33.0 N MEAN CELL HGB CONCETRATION (test code = MCHC) 31.0 gram/dL 33.0-36. 0 L RED CELL DISTRIBUTION WIDTH (test code = RDW) 13.3 % 11.6-16. 2 N RED CELL DISTRIBUTION WIDTH SD (test code = RDW-SD) 48.0 fL 37 .0-51.0 N PLATELET COUNT (test code = PLT) 186 K/mm3 150-450 N MEAN PLATELET VOLUME (test code = MPV) 10.9 fL 6.7-11.0 N NEUTROPHIL % (test code = NT%) 58.0 % 39.0-69.0 N LYMPHOCYTE % (test code = LY%) 28.4 % 25.0-55.0 N MONOCYTE % (test code = MO%) 9.9 % 0.0-10.0 N EOSINOPHIL % (test code = EO%) 2.7 % 0.0-5.0 N BASOPHIL % (test code = BA%) 0.6 % 0.0-1.0 N NEUTROPHIL # (test code = NT#) 3.87 K/mm3 1.8-7.7 N LYMPHOCYTE # (test code = LY#) 1.90 K/mm3 1.0-5.0 N MONOCYTE # (test code = MO#) 0.66 K/mm3 0-0.8 N EOSINOPHIL # (test code = EO#) 0.18 K/mm3 0.0-0.5 N BASOPHIL # (test code = BA#) 0.04 K/mm3 0.0-0.2 N MANUAL DIFF REQUIRED (test code = MDIFF) NO CHEM [id number] 17:38:000.7[facility]annCHEM DPFLS4059-20-04 17:38:0086 [facility] LutemwqXAOCFMWBIGNX2592-77-17 10:01:0010.9[facility]annELECTROLYTES 2017-09-20 10:01:0096[facility] RedoourXMGYJVBNHUNC6934-07-68 10:01:008.8[facility] AngfxvyNVGEDQQVRMXX3578-71-02 10:01:47154Paboblyt CoikaryBAKZCMHMSWOT0059-01-21 10:01:0014[facility] FsrvisnYNKWURFZMZFP8980-84-53 10:01:63462Ypbzrmmv Riky OMYQOIDIKOYX1291-71-51 10:01:0028[facility] CpahgbeZSIASBQUJLJQ9225-79-77 10:01:00 0.49[facility] YcutixsPIPYTTXOAMLC5449-05-05 10:01:69262Nhaxvfib Riky UJAJEYDWBUEI3903-37-27 10:01:003.9[facility] KjgbftjUTFHABOSVN1521-40-06 10:01:00 14.2[facility] OhxuikhVFEVGZQJMB5274-38-02 10:01:0033.6[facility] HermannHEMATOLOGY 2017-09-20 10:01:09005Ifmuyyby GmqhorfNCUOOERTUL2581-84-58 10:01:008.9[facility] PzuweyoCJEBRZCNQF2805-25-79 10:01:00* Test Item Value Reference Range Interpretation Comments MCH (test code = MCH) 31.2 pg 27.0-31.0 [facility] BfnrxpzATCNXPEOEX8965-58-16 10:01:0093.1[facility] HermannHEMATOLOGY 2017-09-20 10:01:0039.7[facility] NrvtextCJSRRKEMDO4720-31-47 10:01:0013.3[facility] HtdaeakJKHVUJWHHY0743-94-50 10:01:004.27[facility] XqerlmxMJQRKOALHA9520-41-21 10:01:009.7[facility] OdkgbanINNZVVRIKR6563-59-00 10:01:000.9[facility] [place] GBNWONPQIP0569-73-26 10:01:000.9[facility] BtybibsVOBSTVUIPP0994-07-71 10:01:007.9 [facility] CowqbagZCABYAPPBD5111-85-87 10:01:000.3[facility]annHEMATOLOGY 2017-09-20 10:01:000.1[facility] OnbeewnVTMXRIOSGK0886-56-70 10:01:009.4[facility] YlhjqwbEBZSOJVFVX8841-81-53 10:01:009.0[facility] OmvwyabRWSDHFAWTF2562-45-34 10:01:0081.2[facility] HermannCARDIAC IWXIAZA3544-46-90 09:52:0037[facility] [place] CARDIAC YOFPDIR6463-91-97 09:52:00<0.02[facility] HermannCHEM KJPFU0402-02-98 09:52:07202[place] HermannCHEM KNWZR7724-54-27 09:52:0025[facility] HermannCHEM AQFRD8537-79-39 09:52:008.8[facility]annCHEM NXPGK2671-36-36 09:52:003.8 [facility]annCHEM UTZEE6211-09-94 09:52:80295Hoooavhb HermannCHEM PANEL 2017-09-18 09:52:008.4[facility] HermannCHEM PDYAI6426-79-66 09:52:18760Yeuflwlj HermannCHEM TOIGY3729-48-76 09:52:000.44[facility] HermannCHEM SLXYM2034-06-52 09:52:11307Nuzjngtm HermannCHEM QKOYU6750-19-16 09:52:008[facility] HPDHNHXWUW8432-53-58 09:52:000.4[facility] SynvbatTZCHRKKGDT5257-22-45 09:52:00 86.8[facility] ZgfleuwTHOKSPHEKC9371-32-42 09:52:005.2[facility]annHEMATOLOGY 2017-09-18 09:52:006.9[facility] GevmsdgSNDZMIGQBZ7806-43-15 09:52:000.1[facility] TpeaavdRFXRYZLOTO7225-26-17 09:52:000.6[facility] DixamimWZJSZCEVBA3334-02-98 09:52:007.9[facility] KnwkqgpQOCCPAHFHY9090-54-98 09:52:007.9[facility] OVSHPALBHM6466-01-85 09:52:0013.0[facility] PohhaqeNKEBZDTDAP4537-73-40 09:52:00 4.14[facility] RqtqqkfWDJMUEMASI5968-30-51 09:52:0038.6[facility]annHEMATOLOGY 2017-09-18 09:52:008.7[facility] ArjjtyqJKQCRKLZWK9508-34-81 09:52:0093.2[facility] UzmencsCBVPTGNOLG3698-40-15 09:52:00* Test Item Value Reference Range Interpretation Comments MCH (test code = MCH) 31.4 pg 27.0-31.0 [facility] CeghsuaQYPNTAZZKF6395-79-73 09:52:0014.0[facility]annHEMATOLOGY 2017-09-18 09:52:02476Wxdfbhpm DhbqswxTVNFNDSBJN8952-10-30 09:52:0033.7[facility] HermannSPECIAL FILIFQIPJ9843-49-32 09:52:005.9[facility] HermannCARDIAC ENZYMES 2017-09-18 04:28:00<0.02[facility] HermannCARDIAC PTAMHCH9244-55-10 04:28:0036 [facility]annURINE AND JHGWJ2297-57-86 21:32:00* Test Item Value Reference Range Interpretation Comments UA pH (test code = UA pH) 5.0 1 5.0-8.0 [facility] AND DSJQL0320-79-76 21:32:00Yellow *NA*(09/17/17 4:32 PM) [facility] SSGFD7992-43-84 21:32:00Negative *NA*(09/17/17 4:32 PM) [facility] GCXAT4351-43-19 21:32:00* Test Item Value Reference Range Interpretation Comments UA Spec Grav (test code = UA Spec Grav) 1.023 1 [facility] AND NBPTK1500-55-63 21:32:00Clear (09/17/17 4:32 PM) [facility] PNCGS7677-61-28 21:32:00<1[facility] AND MLRBC8478-68-96 21:32:00Negative (09/17/17 4:32 PM)[facility] THKVQ7193-69-57 21:32:00Negative (09/17/17 4:32 PM)[facility] AND GAHYM3073-90-30 21:32:00Negative (09/17/17 4:32 PM)[facility]annCARDIAC XVGSWQS6220-35-21 20:42:00* Test Item Value Reference Range Interpretation Comments CK MB Index (test code = CK MB Index) 4.1 1 <=2.5 [facility]annCARDIAC GHTVRMN4140-13-00 20:42:00<0.02[facility]annCARDIAC TCPZYUC9029-72-82 20:42:001.7[facility]annCARDIAC ZNKOKZF7554-54-94 20:42:00 41[facility] HermannCARDIAC PXWINXO3014-73-55 20:42:0062[facility] HermannCHEM PANEL 2017-09-17 20:42:0067[facility] HermannCHEM WRZEV3608-79-72 20:42:008.0[facility] HermannCHEM TYGNE0077-99-48 20:42:0014.9[facility] HermannCHEM NCPOA2968-44-43 20:42:000.5[facility] HermannCHEM TEHFX4521-92-33 20:42:0015[facility] HermannCHEM WNUWO9861-31-65 20:42:86111Rtsmwdtb HermannCHEM OMBXO7786-45-92 20:42:003.0 [facility]annCHEM HJOGE7515-21-89 20:42:0012[facility] HermannCHEM PANEL 2017-09-17 20:42:005.0[facility] HermannCHEM USDJT3253-20-56 20:42:00* Test Item Value Reference Range Interpretation Comments B/C Ratio (test code = B/C Ratio) 15 1 6-25 [facility] HermannCHEM TAFMX4426-94-16 20:42:00* Test Item Value Reference Range Interpretation Comments A/G Ratio (test code = A/G Ratio) 0.6 1 0.7-1.6 [facility]annCHEM WDOSM7048-42-22 20:42:000.85[facility]annCHEM PANEL 2017-09-17 20:42:0013[facility]annCHEM JEGKB9951-87-81 20:42:43303Lvdgwypp HermannCHEM YNPZE1712-35-73 20:42:89214Lmdkotvf HermannCHEM RYMXE2523-42-61 20:42:004.9[facility]annCHEM KVPYO6234-73-97 20:42:009.2[facility]annCHEM DYKKB5113-23-36 20:42:0027[facility]annCHEM XEZEH4502-63-79 20:42:55265 [facility] QfenhmnFAIHKUTOSV8545-96-60 20:42:000.1[facility]annHEMATOLOGY 2017-09-17 20:42:007.3[facility] McwfvvxSVVIDFKCXE5756-56-18 20:42:000.9[facility] EtuxqgdTQMCHNTRSR5230-05-66 20:42:001.0[facility] JhtbcihRXRYBWFGUA1541-85-33 20:42:000.8[facility] XmtkfusGHRKUOWWHB1014-36-94 20:42:009.2[facility] [place] GVNLZQSRFQ2422-75-26 20:42:0078.8[facility] KuqovcwYRJTLZEJXJ4307-38-12 20:42:00 0.3[facility] CbubtqzBFHPAPBFHU5965-22-16 20:42:0010.9[facility]annHEMATOLOGY 2017-09-17 20:42:0014.5[facility] MaqfbepEAQWJBIMXR9776-68-22 20:42:59843Trfstgef MwiwhooCBAFOCZFAR0893-66-64 20:42:008.7[facility] GzuuevdILATQTXLDS9334-03-74 20:42:00* Test Item Value Reference Range Interpretation Comments MCH (test code = MCH) 31.1 pg 27.0-31.0 [facility] RivogjbCOOICEKGUK9130-23-45 20:42:0093.4[facility] [facility] 2017-09-17 20:42:0033.3[facility] [id number] 20:42:009.3[facility] [id number] 20:42:004.63[facility] [id number] 20:42:0043.2[facility] [id number] 20:42:0014.4[facility] VIRAL - [id number] 20:42:00Negative (09/17/17 3:42 PM)[facility]IR[facility] - [id number] 20:42:00Negative (09/17/17 3:42 PM)[facility]
--- NOTE | 2020-03-21 22:00 | NUR ---
PATIENT ARRIVED TO THE FLOOR VIA WHEELCHAIR, VIA ER, DIRECT ADMISSION FROM MD Marie BLANCO, PATIENT AOX3, PLACED ON OXYGEN FOR SUPPORT, NO C/O CHEST PAIN VITALS 98.7TEMP HR 107; RR17; BP 164/81, WILL CONTINUE CARE, ORDERS PLACED IN SYSTEM BY PAD EXTRACTION TENDER, ADMISSION COMPLETED,
[2020-03-21 22:17] LABS: BASOPHILS % 0.2 % (0.0-1.0); EOSINOPHILS # (AUTO) 0.1 (0.0-0.4); HEMATOCRIT 38.2 % (34.2-44.1); HEMOGLOBIN 12.4 g/dL (12.0-16.0); LYMPHOCYTES # (AUTO) 1.1 (1.0-3.2); LYMPHOCYTES % 9.3 % (18.0-39.1); MEAN CORPUSCULAR HEMOGLOBIN 29.7 pg (28-32); MEAN CORPUSCULAR HGB CONC 32.5 g/dL (31-35); MEAN CORPUSCULAR VOLUME 91.6 fL (81-99); MONOCYTES # (AUTO) 1.5 (0.2-0.8); MONOCYTES % 12.9 % (4.4-11.3); NEUTROPHILS # (AUTO) 8.9 (2.1-6.9); NEUTROPHILS % 76.2 % (38.7-80.0); PLATELET COUNT 152 x10e3/uL (140-360); RED BLOOD COUNT 4.17 x10e6/uL (3.6-5.1)
[2020-03-21 22:30] VITALS: BP 164/81
[2020-03-21 22:30] LABS: ALANINE AMINOTRANSFERASE 34 IU/L (0-55); ALBUMIN 2.8 g/dL (3.5-5.0); ALBUMIN/GLOBULIN RATIO 0.8 (0.8-2.0); ALKALINE PHOSPHATASE 76 IU/L (40-150); ANION GAP 15.3 mmol/L (8-16); BLOOD UREA NITROGEN 10 mg/dL (7-26); BUN/CREATININE RATIO 15 (6-25); CALCIUM 8.8 mg/dL (8.4-10.2); CARBON DIOXIDE 25 mmol/L (22-29); CHLORIDE 104 mmol/L (98-107); CREATININE, SERUM 0.67 mg/dL (0.57-1.11); EST GLOMERULAR FILTRATION RATE > 60 ML/MIN (60-); GLUCOSE 132 mg/dL (74-118); POTASSIUM 3.3 mmol/L (3.5-5.1); SODIUM 141 mmol/L (136-145)
[2020-03-21] MEDS ORDERED: AZITHROMYCIN 500MG/NS 250 ML 125 ML IV ONE (22:30)
[2020-03-21 23:16] VITALS: BP 164/81
[2020-03-21] MEDS ORDERED: SODIUM CHLORIDE 0.9% 50ML 50 ML ONE (23:40)
[2020-03-21 23:59] VITALS: BP 164/81
[2020-03-22] VITALS (9 sets, daily range): BP systolic 123–156; BP diastolic 56–80
[2020-03-22] MEDS: PIPER-TAZ 3.375 GM 50 ML IV SCH ×4 (01:00→23:12)
[2020-03-22] MEDS ORDERED: PIPER-TAZ 3.375 GM 50 ML IV SCH (06:00)
[2020-03-22] MEDS: ALBUTEROL/IPRATROPIUM 3 ML NEB NEB SCH ×2 (07:05→14:05)
--- NOTE | 2020-03-22 07:05 | NUR ---
RCD PT AT BED PT IS ALERT AND ORIENTED RESTING ON BED IV PATENT BED LOW AND LOCKED CALL LIGHT IN REACH
[2020-03-22] MEDS ORDERED: ALBUTEROL SULFATE HFA 8GM INHALATION AEROSOL INH PRN ×2 (10:45→11:00)
[2020-03-22] MEDS ORDERED: TRAMADOL HCL 50 MG TAB PO PRN (10:45)
--- NOTE | 2020-03-22 11:09 | NUR ---
RD has assessed pt on 03/21. Please refer to previous medical record for notes. Pt with high nutritional risk - will re-evaluate in 3 days (03/25).
[2020-03-22] MEDS ORDERED: POTASSIUM CHLORIDE 20 MEQ TAB CR PO ONE (12:29)
[2020-03-22] MEDS: NICOTINE 21 MG/EA PATCH TOP SCH (12:30)
[2020-03-22] MEDS ORDERED: POTASSIUM CHLORIDE 20 MEQ TAB CR PO PRN (12:30)
--- NOTE | 2020-03-22 15:59 | Consultation ---
DATE OF CONSULTATION: 03/22/2020 PULMONARY CONSULTATION: The patient of Dr. Luis Daniel Rivera. The patient had been admitted on March 20 with pneumonia and flank pain, productive cough. She left against medical advice, but returned. She has complaints of dyspnea and cough. She denies dysuria. ALLERGIES: CODEINE AND DEMEROL. MEDICATIONS: Have included Ventolin, ipratropium, BuSpar, aspirin, clonazepam, Neurontin, Levoxyl, metoprolol, Zantac, and ultram. PAST SURGICAL HISTORY: Gallbladder surgery, gastrectomy, presumably Billroth 1, peptic ulcer disease. 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 Continues to smoke a pack of cigarettes a day despite the admonitions of her physicians. FAMILY HISTORY: Positive for coronary artery disease, diabetes, and dementia in elderly mother. PHYSICAL EXAMINATION: GENERAL: White female in no acute distress. VITAL SIGNS: Temperature 97.4, pulse 96, respirations 19, blood pressure 150/77, O2 saturation 92% on room air. HEENT: Head normocephalic, atraumatic. There is some temporal wasting. LUNGS: Diminished breath sounds. HEART: Regular rhythm. ABDOMEN: Nontender. EXTREMITIES: Nonedematous. IMPRESSION: Pneumonia, left lower lobe, cigarette smoking addiction. PLAN: Empiric antibiotics. Follow up chest x-ray. Replace potassium. Assess for home oxygen. Cigarette smoking cessation. The patient agrees to vel Diaz. Thank you for this kind referral. MD HAILE Saab/MODL /[id number]
[2020-03-22 16:46] LABS: COLOR,URINE YELLOW (YELLOW)
[2020-03-22 16:47] LABS: BILIRUBIN,URINE NEGATIVE (NEGATIVE); CLARITY,URINE CLEAR (CLEAR); KETONES,URINE TRACE (NEGATIVE); LEUKOCYTE ESTERASE ,URINE NEGATIVE (NEGATIVE); NITRITE,URINE NEGATIVE (NEGATIVE); PROTEIN,URINE DIPSTICK 1+ (NEGATIVE); URINE UROBILINOGEN 1 mg/dL (0.2 - 1)
[2020-03-22] MEDS: BUSPIRONE HCL 5 MG TAB PO SCH (17:00)
[2020-03-22] MEDS: METOPROLOL TARTRATE 50 MG TAB PO SCH (17:00)
[2020-03-22 17:24] LABS: BACTERIA,URINE FEW /HPF; EPITHELIAL CELLS,URINE FEW /LPF; RBC,URINE 0-5 /HPF (0-5); WBC,URINE (MAN) 0-5 /HPF (0-5)
--- NOTE | 2020-03-22 18:44 | NUR ---
pt resting on bed bed side report given to oncoming nurse
--- NOTE | 2020-03-22 19:21 | NUR ---
BEDSIDE SHIFT REPORT RECEIVED FROM SINAN DAVALOS, PATIENT AOX4, NO DISTRESS NOTED, OXYGEN VIA ROOM AIR, REPORTED SPO2@92% MD AWARE IS OKAY WITH SAT, PATIENT LYING IN BED RESPIRATION EVEN AND UNLABORED, SKIN WARM DRY, CALL LIGHT WITHIN REACH, HOME O2 EVALUATION COMPLETED BY VIANEY, EDUCATION FOR COPD AND SMOKING CESSATION ATTEMPTED VERBALLY PT REFUSING AT THIS TIME, STATING " I WILL STOP SMOKING ON MY 89TH BIRTHDAY", WILL RESUME CARE OF PATIENT
[2020-03-22] MEDS: IPRATROPIUM BROMIDE 0.06% 42 MCG NASPR NS SCH (20:11)
[2020-03-22] MEDS: AZITHROMYCIN 250MG/NS 100 ML 100 ML IV SCH (20:11)
--- NOTE | 2020-03-22 21:48 | NUR ---
hourly rounding completed pt requesting pudding, all personal belongings within reach, phone pulled in to wall per her request, light turned off, she states " I am comfortable", comfort measures increased, call light within reach "
--- NOTE | 2020-03-22 22:02 | NUR ---
PATIENT GIVEN EDUCATION ON HEEL PROTECTORS, REFUSE TO WEAR HEEL PROTECTOR ON RIGHT FOOT, STATES " THERE IS NOTHING WRONG WITH THAT FOOT", HEEL PROTECTOR PLACED ON LEFT HEEL ONLY
[2020-03-23] VITALS (9 sets, daily range): BP systolic 120–178; BP diastolic 66–84
[2020-03-23] MEDS: ALBUTEROL/IPRATROPIUM 3 ML NEB NEB SCH ×4 (01:25→19:30)
[2020-03-23] MEDS: LEVOTHYROXINE SODIUM 125 MCG TAB PO SCH (05:24)
[2020-03-23 06:49] LABS: BASOPHILS % 0.4 % (0.0-1.0); EOSINOPHILS # (AUTO) 0.1 (0.0-0.4); HEMATOCRIT 34.4 % (34.2-44.1); HEMOGLOBIN 11.4 g/dL (12.0-16.0); LYMPHOCYTES # (AUTO) 0.8 (1.0-3.2); LYMPHOCYTES % 10.6 % (18.0-39.1); MEAN CORPUSCULAR HEMOGLOBIN 30.9 pg (28-32); MEAN CORPUSCULAR HGB CONC 33.1 g/dL (31-35); MEAN CORPUSCULAR VOLUME 93.2 fL (81-99); MONOCYTES # (AUTO) 0.9 (0.2-0.8); MONOCYTES % 12.1 % (4.4-11.3); NEUTROPHILS # (AUTO) 5.3 (2.1-6.9); NEUTROPHILS % 74.5 % (38.7-80.0); PLATELET COUNT 144 x10e3/uL (140-360); RED BLOOD COUNT 3.69 x10e6/uL (3.6-5.1)
--- NOTE | 2020-03-23 07:00 | NUR ---
RCD PT AT BED PT IS ALERT AND ORIENTED RESTING ON BED IV PATENT BED LOW AND LOCKED CALL LIGHT IN REACH
[2020-03-23 07:01] LABS: ANION GAP 11.9 mmol/L (8-16); BLOOD UREA NITROGEN < 5 mg/dL (7-26); CALCIUM 7.8 mg/dL (8.4-10.2); CARBON DIOXIDE 29 mmol/L (22-29); CHLORIDE 104 mmol/L (98-107); CREATININE, SERUM 0.54 mg/dL (0.57-1.11); EST GLOMERULAR FILTRATION RATE > 60 ML/MIN (60-); GLUCOSE 108 mg/dL (74-118); SODIUM 142 mmol/L (136-145)
[2020-03-23 07:05] LABS: BUN/CREATININE RATIO 9 (6-25); POTASSIUM 2.9 mmol/L (3.5-5.1)
--- NOTE | 2020-03-23 07:15 | NUR ---
PAGED DR Maximo BLANCO TO NOTIFY THE POTASSIUM LEVEL
--- NOTE | 2020-03-23 07:41 | Diagnostic Imaging Report ---
EXAMINATION: CHEST 2 VIEWS INDICATION: CAP COMPARISON: Chest radiograph 03/20/2020. FINDINGS: TUBES and LINES: None. LUNGS: Emphysematous lungs. Mild interstitial opacities. Patchy left basilar opacity is slightly improved. Unchanged peripheral opacity in the right upper lung. PLEURA: No pleural effusion or pneumothorax. HEART AND MEDIASTINUM: The cardiomediastinal silhouette is unremarkable. There are atherosclerotic calcifications within the aorta. BONES AND SOFT TISSUES: No acute osseous abnormality. UPPER ABDOMEN: No free air under the diaphragm. Surgical clips near the GE junction. IMPRESSION: Emphysematous lungs with slightly decreased left basilar opacity, which may represent atelectasis or infection. Signed by: Dr. Teodora Garcia MD on 03/23/2020 7:37 AM
[2020-03-23] MEDS: PIPER-TAZ 3.375 GM 50 ML IV SCH ×2 (08:00→16:00)
--- NOTE | 2020-03-23 08:35 | NUR ---
DR BLANCO RETURNED THE CALL GOT NEW ORDERS
[2020-03-23] MEDS ORDERED: POTASSIUM CHLORIDE 20 MEQ TAB CR PO STA (08:36)
[2020-03-23] MEDS: GABAPENTIN 300 MG CAP PO SCH (09:00)
[2020-03-23] MEDS: NICOTINE 21 MG/EA PATCH TOP SCH (09:00)
[2020-03-23] MEDS: BUSPIRONE HCL 5 MG TAB PO SCH ×2 (09:00→17:00)
[2020-03-23] MEDS: ASPIRIN 81 MG CHEW TAB PO SCH (09:00)
[2020-03-23] MEDS: METOPROLOL TARTRATE 50 MG TAB PO SCH ×2 (09:00→17:00)
[2020-03-23] MEDS: IPRATROPIUM BROMIDE 0.06% 42 MCG NASPR NS SCH ×2 (09:00→21:00)
[2020-03-23] MEDS ORDERED: LEVOTHYROXINE SODIUM 50 MCG TAB PO SCH (09:00)
[2020-03-23] MEDS: POTASSIUM CHLORIDE 20 MEQ TAB CR PO SCH ×3 (09:31→14:00)
[2020-03-23] MEDS ORDERED: POTASSIUM CHLORIDE 20 MEQ TAB CR PO ONE ×2 (10:45→12:45)
--- NOTE | 2020-03-23 14:40 | NUR ---
BS PFT DONE. RESULTS PLACE IN DR. BURTON'S BOX. Addendum: 03/23/20 at 1711 by Shakila Fisher RT Amended: Links added.
--- NOTE | 2020-03-23 15:00 | NUR ---
TRIED TO TALK 10 TIMES EACH TIME PHONE SHOWS BUSY ,FINALLY I TALKED THE PT SHE SAID SHE WILL TALK HIM
[2020-03-23] MEDS ORDERED: SODIUM CHLORIDE 0.9% 250ML 250 ML ONE (16:06)
--- NOTE | 2020-03-23 18:42 | NUR ---
PT RESTING ON BED BED SIDE REPORT GIVEN TO ONCOMING NURSE
[2020-03-23] MEDS: AZITHROMYCIN 250MG/NS 100 ML 100 ML IV SCH (20:00)
--- NOTE | 2020-03-23 20:00 | NUR ---
PATIENT SEEN REPEATEDLY COUGHING, ABLE TO VOICE NEEDS, STATING "IM CHOKING ON DAM CUPCAKE", PATIENT GIVEN OXYGEN FOR SUPPORT, SMALL SLOW SIP OF WATER TO CLEAR AIRWAY, SHEETS AND COVER CHANGED FROM SPILLING CUPCAKE CRUMBS, HOB UP >30DEGREES, CELL PHONE PLUGGED IN PER HER REQUEST, CALL LIGHT WITHIN REACH
--- NOTE | 2020-03-23 21:18 | NUR ---
patient IV site seen red swollen, pt c/o tenderness at site, LAC IV SITE DISCONTINUED, NEW IV START LEFT LOWER FOREARM #22G, TOLERATED WELL, IV ABT THERAPY CONTINUED
[2020-03-24] VITALS (10 sets, daily range): BP systolic 106–172; BP diastolic 56–101
[2020-03-24] MEDS: ALBUTEROL/IPRATROPIUM 3 ML NEB NEB SCH ×4 (01:41→19:40)
[2020-03-24] MEDS: PIPER-TAZ 3.375 GM 50 ML IV SCH ×3 (02:05→17:30)
[2020-03-24] MEDS: LEVOTHYROXINE SODIUM 125 MCG TAB PO SCH (04:50)
[2020-03-24] MEDS ORDERED: LISINOPRIL 10 MG TAB PO ONE (05:00)
[2020-03-24] MEDS: IPRATROPIUM BROMIDE 0.06% 42 MCG NASPR NS SCH (09:00)
[2020-03-24 09:07] LABS: ANION GAP 13.8 mmol/L (8-16); BLOOD UREA NITROGEN < 5 mg/dL (7-26); CALCIUM 8.8 mg/dL (8.4-10.2); CARBON DIOXIDE 29 mmol/L (22-29); CHLORIDE 105 mmol/L (98-107); CREATININE, SERUM 0.61 mg/dL (0.57-1.11); EST GLOMERULAR FILTRATION RATE > 60 ML/MIN (60-); GLUCOSE 115 mg/dL (74-118); POTASSIUM 4.8 mmol/L (3.5-5.1); SODIUM 143 mmol/L (136-145)
[2020-03-24 09:10] LABS: BUN/CREATININE RATIO 8 (6-25)
[2020-03-24] MEDS: NICOTINE 21 MG/EA PATCH TOP SCH (09:30)
[2020-03-24] MEDS: GABAPENTIN 300 MG CAP PO SCH (09:30)
[2020-03-24] MEDS: BUSPIRONE HCL 5 MG TAB PO SCH ×2 (09:30→17:30)
[2020-03-24] MEDS: ASPIRIN 81 MG CHEW TAB PO SCH (09:30)
[2020-03-24] MEDS: METOPROLOL TARTRATE 50 MG TAB PO SCH ×2 (09:30→17:30)
--- NOTE | 2020-03-24 14:27 | Pulmonary Function Test ---
DATE OF STUDY: REFERRING PHYSICIAN: NAME OF STUDY: Spirometry report. The patient of Dr. Luis Daniel Rivera. FINDINGS: Very severe obstructive pulmonary disease. Forced vital capacity 1.17 L, 42% of predicted. FEV1 0.61 L, 29%. FEV1/FVC ratio of 52%. FEF of 25 to 75, 17%. There is no significant improvement following inhalation of bronchodilators. Concomitant restriction cannot be excluded. Jose Raul Jiang MD DS/MODL /[id number]
[2020-03-24] MEDS ORDERED: DIPHENOXYLATE/ATROPINE TAB PO ONE (16:30)
--- NOTE | 2020-03-24 19:20 | NUR ---
Patient received sitting up in bed. AAO x 3. No complaints of pain. No signs of respiratory distress. Safety measures in place. Patient instructed to call for assistance when needed. Call light within reach.
[2020-03-24] MEDS: DIPHENOXYLATE/ATROPINE TAB PO SCH (22:19)
[2020-03-24] MEDS: AZITHROMYCIN 250MG/NS 100 ML 100 ML IV SCH (22:24)
[2020-03-25] VITALS (9 sets, daily range): BP systolic 118–159; BP diastolic 60–84
[2020-03-25] MEDS: PIPER-TAZ 3.375 GM 50 ML IV SCH ×3 (00:45→17:26)
[2020-03-25] MEDS: ALBUTEROL/IPRATROPIUM 3 ML NEB NEB SCH ×4 (01:10→19:05)
[2020-03-25] MEDS: LEVOTHYROXINE SODIUM 125 MCG TAB PO SCH (05:50)
[2020-03-25] MEDS: IPRATROPIUM BROMIDE 0.06% 42 MCG NASPR NS SCH (06:57)
--- NOTE | 2020-03-25 07:00 | NUR ---
alking rounds done. Shift report given to oncoming nurse regarding patient's status.
--- NOTE | 2020-03-25 07:00 | NUR ---
Walking rounds done. Shift report given to oncoming nurse regarding patient's status.
[2020-03-25] MEDS: DIPHENOXYLATE/ATROPINE TAB PO SCH ×3 (10:09→22:44)
[2020-03-25] MEDS: NICOTINE 21 MG/EA PATCH TOP SCH (10:09)
[2020-03-25] MEDS: BUSPIRONE HCL 5 MG TAB PO SCH ×2 (10:09→17:26)
[2020-03-25] MEDS: ASPIRIN 81 MG CHEW TAB PO SCH (10:09)
[2020-03-25] MEDS: GABAPENTIN 300 MG CAP PO SCH (10:09)
[2020-03-25] MEDS: METOPROLOL TARTRATE 50 MG TAB PO SCH ×2 (10:12→17:26)
--- NOTE | 2020-03-25 10:49 | Diagnostic Imaging Report ---
TECHNIQUE: Frontal and lateral of the chest. INDICATION: ^cough ^[id number] ^1020 ^Y COMPARISON: 2 days prior IMPRESSION: Overlying wires limit evaluation. Lines and hardware: Stable. Heart and mediastinum: Stable. Lungs and pleura: Hyperinflated emphysematous lungs with scattered atelectasis/scarring. Slightly more prominent costophrenic angle airspace opacity may represent atelectasis versus pneumonitis in the appropriate clinical setting. Bilateral trace effusions versus pleural thickening. No pneumothorax. Soft tissues and bones: No acute abnormality. Signed by: Alfie Parks MD on 03/25/2020 10:45 AM
--- NOTE | 2020-03-25 11:07 | NUR ---
Dr Maximo Rivera is here making rounds. I notified him of telemetry reporting a run of V-TACH. No new orders received at this time.
--- NOTE | 2020-03-25 11:14 | NUR ---
Orders received for cardiology consult.
[2020-03-25] MEDS: LISINOPRIL 10 MG TAB PO SCH (11:59)
--- NOTE | 2020-03-25 14:42 | NUR ---
Nutrition Intervention Note RD Recommendation(s) for Physician: -Continue regular diet -Ensure Enlive daily for added nutrition -The patient meets criteria for unspecified SEVERE protein-calorie malnutrition Plan of Care: RD following, monitoring for tolerance and adequacy, oral supplement recommendation Nutrition reason for involvement: follow up RD Assessment 03/25: Follow up. Chart reviewed. Pt reports that her appetite is better and is now eating >50% of her meals. No N/V/D/C reported. Pt is still only interested in receiving nutrition supplementation daily. Will continue to monitor. (03/21/20) Pt is a 74 year old female admitted with pneumonia. Pt reports eating <50% of her meals for the past week and has been experiencing weight loss. Pt mentioned she had weighed 110 lbs a week ago and pt currently has a weight of 103 lbs in chart. If accurate, this would be a 6% weight loss in 1 week which is significant weight loss. No N/V/D/C reported. Offered pt Ensure with meals, but pt was interested in only receiving the supplement daily. Recommend liberalizing the diet to regular diet as appropriate. Will continue to monitor. Principal Problems/Diagnoses: pneumonia PMH: gallbladder surgery, gastrectomy, apparently Billroth I in the past for peptic ulcer disease. GI: soft/non-tender/round abdomen, BM 03/24 Skin: sacral wound Labs: 03/24: Na 143, K 4.8, BUN 13.8, Cr 0.6, Glu 115, Ca 8.8 (03/21) Na 138, K 3.2, Bun 12, Cr 0.63, Glu 107, Ca 8.4 Meds: metoprolol, antibiotics, levothyroxine Ht: 64 in Wt: 99 lbs (03/23) 103.01 lbs (03/20) BMI: 17.7 kg/m2 - using wt of 103 lbs IBW: 120 lbs Malnutrition Evaluation (03/21/20) The patient meets criteria for unspecified SEVERE protein-calorie malnutrition. Energy intake: <50% of estimated energy requirements for >5 days Weight loss: >2% in 1week (Acute) Fat loss: Severe tricep region Muscle loss: Severe clavicle, shoulder, lower extremities Supporting Evidence: Fluid accumulation: no edema per MD note Functional Status: not assessed Nutrition Prescription (Diet Order): regular Estimated Nutritional Needs: 7698-3731 calories/day (30-35 kcal/kg CBW) weight used: 103 lbs 70-94 g protein/day (1.5-2 g pro/kg CBW) weight used: 103 lbs Diet Adequacy: Not meeting calorie needs, Not meeting protein needs Tolerance: Tolerating PO Diet Education Needs Assessment: Diet education not indicated Nutrition Care Level: high Nutrition Diagnosis: Severe protein calorie malnutrition related to inadequate oral intake as evidenced by pt meeting <50% of estimated energy needs for > 5 days, >2% weight loss in 1 week, and severe muscle and fat depletion. Goal: Patient will meet 75-100% of estimated needs by follow up Progress: progressing Interventions: -General healthful diet, Commercial beverage Monitoring/Evaluation: -Total energy intake, Total protein intake, Liquid supplement, Weight change Signed: Heather Portillo RD, LD
--- NOTE | 2020-03-25 16:21 | NUR ---
IMM letter delivered and explained to pt. She verbalized understanding. Copy given to pt. Signed copy in chart. Spoke to pt about PT's recommendation for home health and RW. Pt declined need for home health at this time. CM informed pt that if she changes her mind later, she can follow up with her PCP and have them arrange it. Pt also stated that she prefers to get rolling walker from the store.
--- NOTE | 2020-03-25 17:25 | NUR ---
House supp notified of stat echo
[2020-03-25 19:08] LABS: CHOL/HDL RATIO 3.5 (3.0-3.6)
--- NOTE | 2020-03-25 19:25 | NUR ---
Patient received lying in bed. AAO x 3. No acute distress noted. Fall precautions implemented. Call light within reach.
[2020-03-25 19:30] LABS: THYROID STIMULATING HORMONE 0.967 uIU/mL (0.350-4.940)
--- NOTE | 2020-03-25 20:35 | Consultation ---
DATE OF CONSULTATION: 03/25/2020 REASON FOR CONSULTATION: VT. CHIEF COMPLAINT: Shortness of breath, cough. HISTORY OF PRESENT ILLNESS: This is a 74-year-old female with history of COPD, smoker, hypertension, hypothyroidism, reflux disease, and anxiety. The patient presents to [facility] ER with complaints of shortness of breath, cough. Imaging noted with left lower lobe pneumonia, on antibiotic therapy; however, today the patient was noted on telemetry to have a run of VT. Cardiology is consulted to evaluate the patient. The patient is seen in room, reports came in because of shortness of breath, cough, being treated with pneumonia. Denies any chest pain, palpitations, dizziness, lightheadedness. Pulmonary function test done showing severe obstructive pulmonary disease. PAST MEDICAL HISTORY: COPD, smoker, hypothyroidism, hypertension, reflux disease, peptic ulcer disease, and anxiety. PAST SURGICAL HISTORY: Cholecystectomy and lithotripsy. 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 Denies alcohol use. Positive tobacco use one pack per day. FAMILY HISTORY: Mother at age of 96 apparently from old age. Father , history of CAD/bypass surgery. ALLERGIES: CODEINE AND DEMEROL. HOME MEDICATIONS: 1. Aspirin 81 mg daily. 2. Buspirone 15 mg b.i.d. 3. Gabapentin 300 mg daily. 4. Levothyroxine 125 mcg daily. 5. Metoprolol 100 mg b.i.d. 6. Ranitidine 150 mg daily. 7. Ipratropium p.r.n. 8. Albuterol inhaler p.r.n. REVIEW OF SYSTEMS: GENERAL: Denies any weight changes. Denies any fatigue, weakness, fevers, chills, or night sweats. SKIN: No rash or sores. HEENT: Denies any nausea, vomiting, vision changes, blurred vision, double vision, epistaxis, sore throat, or swollen neck. CARDIAC: Denies any chest pain. Positive for shortness of breath with activities. Denies orthopnea, PND, or lower extremity edema. RESPIRATORY: Positive for shortness of breath, cough, wheezing. Denies any hemoptysis. GI: Reports good appetite. Denies nausea, vomiting, diarrhea, constipation, melena, tarry or bloody stools. GENITOURINARY: Denies any frequency, urgency, dysuria, or hematuria. VASCULAR: Denies any lower extremity claudication or edema. MUSCULOSKELETAL: Denies any muscle weakness. Positive for joint pains or back pains. NEUROLOGIC: Denies any numbness, tingling, tremors, paralysis, weakness, or seizures. HEMATOLOGIC: Denies any bruising or anemia. ENDOCRINE: Denies heat or cold intolerance, polyuria, polydipsia, or polyphagia. PHYSICAL EXAMINATION: VITAL SIGNS: Height 71 inches. Weight 99 pounds, BMI 13. Current vital signs, temperature 98.3, pulse 106, respiratory rate 19, blood pressure 124/70, and pulse ox 96% on room air. LABORATORY DATA: Sodium 143, potassium 4.8, chloride 105, BUN less than 5, and creatinine 0.6. White count 7, hemoglobin 11, hematocrit 34, and platelets 144. Vela PCR not detected. IMAGING DATA: Chest x-ray showing emphysematous lungs with opacities in left base. EKG showing sinus rhythm with LVH and left atrial enlargement. Pulmonary function test showing severe obstructive pulmonary disease. Forced vital capacity 1.17 L or 40% of predicted. FEV1 0.61 L, 29%. ASSESSMENT AND PLAN: 1. Left lower lobe pneumonia. 2. Chronic obstructive pulmonary disease. 3. Smoker. 4. Hypothyroidism. 5. Hypertension. 6. Run of ventricular tachycardia. PLAN: 1. The patient presents to [facility] ER with complaints of shortness of breath, cough, and noted with left lower lobe pneumonia on imaging. On antibiotic therapy as per Primary Service, was noted with run of Vtach. Cardiology consulted. 2. We will continue beta-sweetie therapy for rate control. 3. We will get an echo to evaluate heart function structure. 4. We will check TSH/lipid. 5. Continue telemonitoring. 6. Further recommendations as course progresses. Thank you very much for this consult. Seen and examined Discussed with patient High probability of CAD, will treat conservatively till Pulmonary atatus is improved Dictated by Jose Raul Dean NP Christian Vazquez MD DC/DEBRA /[id number] SHERYL
[2020-03-25] MEDS: AZITHROMYCIN 250MG/NS 100 ML 100 ML IV SCH (22:25)
[2020-03-26] VITALS: BP 104/54
[2020-03-26] MEDS: ALBUTEROL/IPRATROPIUM 3 ML NEB NEB SCH ×3 (01:05→13:25)
[2020-03-26] MEDS: PIPER-TAZ 3.375 GM 50 ML IV SCH ×2 (01:17→08:00)
[2020-03-26 04:00] VITALS: BP 121/67
[2020-03-26] MEDS: LEVOTHYROXINE SODIUM 125 MCG TAB PO SCH (06:32)
[2020-03-26 06:38] LABS: BASOPHILS % 0.5 % (0.0-1.0); EOSINOPHILS # (AUTO) 0.3 (0.0-0.4); HEMATOCRIT 36.9 % (34.2-44.1); HEMOGLOBIN 11.7 g/dL (12.0-16.0); LYMPHOCYTES % 11.2 % (18.0-39.1); MEAN CORPUSCULAR HEMOGLOBIN 29.4 pg (28-32); MEAN CORPUSCULAR HGB CONC 31.7 g/dL (31-35); MEAN CORPUSCULAR VOLUME 92.7 fL (81-99); MONOCYTES # (AUTO) 0.7 (0.2-0.8); MONOCYTES % 8.1 % (4.4-11.3); NEUTROPHILS # (AUTO) 6.5 (2.1-6.9); NEUTROPHILS % 75.7 % (38.7-80.0); PLATELET COUNT 211 x10e3/uL (140-360); RED BLOOD COUNT 3.98 x10e6/uL (3.6-5.1)
[2020-03-26 06:57] LABS: ANION GAP 12.1 mmol/L (8-16); BLOOD UREA NITROGEN 5 mg/dL (7-26); BUN/CREATININE RATIO 8 (6-25); CALCIUM 8.2 mg/dL (8.4-10.2); CARBON DIOXIDE 27 mmol/L (22-29); CHLORIDE 108 mmol/L (98-107); CREATININE, SERUM 0.65 mg/dL (0.57-1.11); EST GLOMERULAR FILTRATION RATE > 60 ML/MIN (60-); GLUCOSE 92 mg/dL (74-118); POTASSIUM 4.1 mmol/L (3.5-5.1); SODIUM 143 mmol/L (136-145)
--- NOTE | 2020-03-26 07:00 | NUR ---
RCD PT AT BED PT IS ALERT AND ORIENTED ,PT RESTING ON BED IV PATENT BED LOW AND LOCKED CALL LIGHT IN REACH
[2020-03-26 08:41] VITALS: BP 138/66
[2020-03-26] MEDS: NICOTINE 21 MG/EA PATCH TOP SCH (09:00)
[2020-03-26] MEDS: ASPIRIN 81 MG CHEW TAB PO SCH (09:00)
[2020-03-26] MEDS: METOPROLOL TARTRATE 50 MG TAB PO SCH (09:00)
[2020-03-26] MEDS: IPRATROPIUM BROMIDE 0.06% 42 MCG NASPR NS SCH (09:00)
[2020-03-26] MEDS: BUSPIRONE HCL 5 MG TAB PO SCH (09:00)
[2020-03-26] MEDS: DIPHENOXYLATE/ATROPINE TAB PO SCH ×2 (09:00→14:15)
[2020-03-26] MEDS: GABAPENTIN 300 MG CAP PO SCH (09:00)
[2020-03-26] MEDS: LISINOPRIL 10 MG TAB PO SCH (09:00)
[2020-03-26 09:40] VITALS: BP 138/66
[2020-03-26 12:05] VITALS: BP 107/53
[2020-03-26] MEDS ORDERED: Z PACK PO (13:27)
--- NOTE | 2020-03-26 13:37 | NUR ---
patient went home in safe condition with her
== END 2020-03-26 14:37 | disposition home or self-care (01) | DRG 194 ==
LOC: MED/SURG2 21:35
DX: J15.9 Unspecified bacterial pneumonia (principal); J44.0 Chronic obstructive pulmonary disease with (acute) lower respiratory infection; E44.0 Moderate protein-calorie malnutrition; Z68.1 Body mass index [BMI] 19.9 or less, adult; I10 Essential (primary) hypertension; K21.9 Gastro-esophageal reflux disease without esophagitis; E87.6 Hypokalemia; E03.9 Hypothyroidism, unspecified; F17.210 Nicotine dependence, cigarettes, uncomplicated; Z87.11 Personal history of peptic ulcer disease; Z11.59 Encounter for screening for other viral diseases
CPT/HCPCS: 36415; 71046; 80048; 80053; 80061; 81001; 84443; 85025; 87070; 87205; 93306; 94060; 94640; 97139; J0456; J2543; J7050

== ENCOUNTER 2021-04-23 11:45 | Inpatient (IN) | payer MEDICARE ==
[~2021-04-23] VITALS: Ht 162.6 cm; Wt 47.2 kg
[~2021-04-23 11:45] MED LIST changes: +Z PACK PO
[2021-04-23] MEDS ORDERED: SODIUM CHLORIDE 0.9% 1000ML 1,000 ML IV STA ×2 (12:00→14:12)
[2021-04-23 12:20] LABS: BASOPHILS # (AUTO) 0.1 (0.0-0.1); BASOPHILS % 0.3 % (0.0-1.0); EOSINOPHILS % 0.1 % (0.0-6.0); HEMATOCRIT 46.8 % (34.2-44.1); HEMOGLOBIN 14.9 g/dL (12.0-16.0); LYMPHOCYTES # (AUTO) 0.6 (1.0-3.2); LYMPHOCYTES % 3.6 % (18.0-39.1); MEAN CORPUSCULAR HEMOGLOBIN 29.4 pg (28-32); MEAN CORPUSCULAR HGB CONC 31.8 g/dL (31-35); MEAN CORPUSCULAR VOLUME 92.5 fL (81-99); MONOCYTES # (AUTO) 1.2 (0.2-0.8); MONOCYTES % 7.9 % (4.4-11.3); NEUTROPHILS # (AUTO) 13.4 (2.1-6.9); NEUTROPHILS % 87.2 % (38.7-80.0); PLATELET COUNT 87 x10e3/uL (140-360); RED BLOOD COUNT 5.06 x10e6/uL (3.6-5.1); RED CELL DISTRIBUTION WIDTH 14.4 % (11.7-14.4)
[2021-04-23] MEDS ORDERED: ACETAMINOPHEN 325 MG TAB PO ONE (12:30)
[2021-04-23] MEDS ORDERED: CEFTRIAXONE 1 GM in SODIUM CHLORIDE 0.9% 50ML 50 ML IV ONE (12:30)
[2021-04-23 12:59] LABS: ALBUMIN 2.6 g/dL (3.5-5.0); ALBUMIN/GLOBULIN RATIO 0.5 (0.8-2.0); ANION GAP 17.4 mmol/L (8-16); CALCIUM 9.4 mg/dL (8.4-10.2); CREATININE, SERUM 1.1 mg/dL (0.57-1.11); POTASSIUM 4.4 mmol/L (3.5-5.1)
[2021-04-23 13:48] LABS: ABG PCO2 30 mmHg (35-45); ABG PH 7.53 (7.35-7.45); ABG PO2 51 mmHg (80-105)
[2021-04-23 13:49] LABS: ABG HCO3 25 mmol/L (22-26); ABG TCO2 26
[2021-04-23 14:12] LABS: CLARITY,URINE CLOUDY (CLEAR); COLOR,URINE YELLOW (YELLOW); KETONES,URINE NEGATIVE (NEGATIVE); LEUKOCYTE ESTERASE ,URINE MODERATE (NEGATIVE); NITRITE,URINE POSITIVE (NEGATIVE); PROTEIN,URINE DIPSTICK 2+ (NEGATIVE); URINE UROBILINOGEN 0.2 mg/dL (0.2 - 1)
[2021-04-23 14:14] LABS: BACTERIA,URINE MANY /HPF; EPITHELIAL CELLS,URINE RARE /LPF; WBC,URINE (MAN) >50 /HPF (0-5)
[2021-04-23 14:15] LABS: MUCUS,URINE FEW (RARE)
[2021-04-23] MEDS ORDERED: GABAPENTIN400 MG PO (17:02)
[2021-04-23] MEDS: SODIUM CHLORIDE 0.9% 1000ML 1,000 ML IV SCH (17:30)
[2021-04-23 18:00] VITALS: BP 163/88
[2021-04-23 18:09] VITALS: BP 163/88
[2021-04-23 20:00] VITALS: BP 167/85
[2021-04-24] VITALS (8 sets, daily range): BP systolic 154–194; BP diastolic 78–106
[2021-04-24] MEDS: SODIUM CHLORIDE 0.9% 1000ML 1,000 ML IV SCH ×3 (00:33→16:00)
[2021-04-24 04:50] LABS: BASOPHILS % 0.3 % (0.0-1.0); EOSINOPHILS % 0.3 % (0.0-6.0); HEMATOCRIT 38.7 % (34.2-44.1); HEMOGLOBIN 12.2 g/dL (12.0-16.0); LYMPHOCYTES # (AUTO) 0.6 (1.0-3.2); LYMPHOCYTES % 4.7 % (18.0-39.1); MEAN CORPUSCULAR HEMOGLOBIN 29.9 pg (28-32); MEAN CORPUSCULAR HGB CONC 31.5 g/dL (31-35); MEAN CORPUSCULAR VOLUME 94.9 fL (81-99); MONOCYTES # (AUTO) 1.3 (0.2-0.8); MONOCYTES % 10.9 % (4.4-11.3); NEUTROPHILS # (AUTO) 9.7 (2.1-6.9); NEUTROPHILS % 82.5 % (38.7-80.0); PLATELET COUNT 78 x10e3/uL (140-360); RED BLOOD COUNT 4.08 x10e6/uL (3.6-5.1); RED CELL DISTRIBUTION WIDTH 14.5 % (11.7-14.4)
[2021-04-24] MEDS: METOPROLOL TARTRATE 50 MG TAB PO SCH ×2 (05:03→16:16)
[2021-04-24] MEDS ORDERED: METOPROLOL TARTRATE 50 MG TAB ONE (05:11)
[2021-04-24 05:24] LABS: ANION GAP 12.9 mmol/L (8-16); CREATININE, SERUM 0.84 mg/dL (0.57-1.11); POTASSIUM 3.9 mmol/L (3.5-5.1)
[2021-04-24 07:19] LABS: LYMPHOCYTES % (MANUAL) 3 % (19-48); MONOCYTES % (MANUAL) 6 % (3.4-9.0); NEUTROPHILS % (MANUAL) 91 % (40-74); PLATELET ESTIMATE MODERATELY DECREASED; PLATELET MORPHOLOGY COMMENT NORMAL; RBC MORPHOLOGY COMMENT NORMAL
[2021-04-24] MEDS ORDERED: ONDANSETRON HCL INJ 2MG/ML 2ML 2 MG/ML VIAL IV PRN (14:45)
[2021-04-24] MEDS: MEROPENEM 500 MG in SODIUM CHLORIDE 0.9% 50ML 50 ML IV SCH ×2 (15:00→21:19)
[2021-04-24] MEDS ORDERED: DIPHENHYDRAMINE HCL 25 MG CAP PO PRN (22:00)
[2021-04-24] MEDS ORDERED: ALBUTEROL/IPRATROPIUM 3 ML NEB NEB PRN (22:00)
[2021-04-24] MEDS ORDERED: BENZONATATE 100 MG CAP PO PRN (22:00)
[2021-04-24] MEDS ORDERED: MELATONIN 5 MG TABLET PO PRN (22:00)
[2021-04-24] MEDS ORDERED: TRAMADOL HCL 50 MG TAB PO PRN (22:00)
[2021-04-24] MEDS ORDERED: DOCUSATE SODIUM 100 MG CAP PO PRN (22:00)
[2021-04-24] MEDS ORDERED: POTASSIUM CHLORIDE 20 MEQ TAB CR PO PRN (22:00)
[2021-04-24] MEDS ORDERED: DEXTROSE 50% SYRINGE 50 ML IV PRN (22:00)
[2021-04-24] MEDS ORDERED: CHLORASEPTIC SPRAY 177 ML BTL MM PRN (22:00)
[2021-04-24] MEDS ORDERED: LIDOCAINE 4% PATCH TP PRN (22:00)
[2021-04-24] MEDS ORDERED: SIMETHICONE 80 MG CHEW PO PRN (22:00)
[2021-04-24] MEDS ORDERED: Vancomycin IV 1 GM in SODIUM CHLORIDE 0.9% 250ML 250 ML IV SCH (22:15)
[2021-04-24] MEDS ORDERED: Vancomycin IV 1 GM in SODIUM CHLORIDE 0.9% 250ML 250 ML IV ONE (22:45)
[2021-04-24] MEDS: ENOXAPARIN 30 MG/0.3 ML SYR SC SCH (23:00)
[2021-04-25] VITALS (8 sets, daily range): BP systolic 146–174; BP diastolic 62–85
[2021-04-25 04:58] LABS: BASOPHILS % 0.3 % (0.0-1.0); EOSINOPHILS # (AUTO) 0.1 (0.0-0.4); EOSINOPHILS % 0.9 % (0.0-6.0); HEMATOCRIT 38.5 % (34.2-44.1); LYMPHOCYTES # (AUTO) 0.8 (1.0-3.2); MEAN CORPUSCULAR HEMOGLOBIN 29.3 pg (28-32); MEAN CORPUSCULAR HGB CONC 31.2 g/dL (31-35); MEAN CORPUSCULAR VOLUME 93.9 fL (81-99); MONOCYTES # (AUTO) 1.1 (0.2-0.8); MONOCYTES % 8.6 % (4.4-11.3); NEUTROPHILS # (AUTO) 10.8 (2.1-6.9); NEUTROPHILS % 83.1 % (38.7-80.0); PLATELET COUNT 110 x10e3/uL (140-360); RED CELL DISTRIBUTION WIDTH 14.6 % (11.7-14.4)
[2021-04-25 05:21] LABS: ANION GAP 12.3 mmol/L (8-16); CREATININE, SERUM 0.75 mg/dL (0.57-1.11); POTASSIUM 3.3 mmol/L (3.5-5.1)
[2021-04-25] MEDS: MEROPENEM 500 MG in SODIUM CHLORIDE 0.9% 50ML 50 ML IV SCH ×3 (06:21→21:34)
[2021-04-25] MEDS: LEVOTHYROXINE SODIUM 50 MCG TAB PO SCH (06:21)
[2021-04-25] MEDS: PANTOPRAZOLE SOD 40 MG TABEC PO SCH (07:30)
[2021-04-25] MEDS: BUSPIRONE HCL 5 MG TAB PO SCH ×2 (09:00→16:34)
[2021-04-25] MEDS: METOPROLOL TARTRATE 50 MG TAB PO SCH ×2 (09:00→16:34)
[2021-04-25] MEDS: HYDRALAZINE HCL 25 MG TAB PO SCH ×2 (12:00→16:33)
[2021-04-25] MEDS: SODIUM CHLORIDE 0.9% 1000ML 1,000 ML IV SCH (12:00)
[2021-04-25] MEDS: ENOXAPARIN 30 MG/0.3 ML SYR SC SCH (16:34)
[2021-04-25] MEDS ORDERED: ENOXAPARIN SOD INJ 40 MG/0.4 ML SYR SC SCH (17:00)
[2021-04-25] MEDS: BUDESONIDE 0.5MG/2 ML NEB INH SCH (20:37)
[2021-04-25] MEDS: ALBUTEROL/IPRATROPIUM 3 ML NEB NEB SCH (20:38)
[2021-04-25] MEDS: METHYLPREDNISOLONE SOD SUCC 40 MG/ML VIAL 1ML IV SCH (21:34)
[2021-04-25] MEDS: Cefazolin 1 GM in SODIUM CHLORIDE 0.9% 50ML 50 ML IV SCH (23:12)
[2021-04-26] VITALS (8 sets, daily range): BP systolic 140–160; BP diastolic 57–84
[2021-04-26] MEDS: ALBUTEROL/IPRATROPIUM 3 ML NEB NEB SCH ×4 (02:49→20:13)
[2021-04-26] MEDS: LEVOTHYROXINE SODIUM 50 MCG TAB PO SCH (05:28)
[2021-04-26] MEDS: Cefazolin 1 GM in SODIUM CHLORIDE 0.9% 50ML 50 ML IV SCH ×3 (05:54→21:47)
[2021-04-26] MEDS ORDERED: IOPAMIDOL 370 MG/ML 200 ML INFUS..BTL INJ ONE ×2 (06:17→06:19)
[2021-04-26] MEDS ORDERED: SODIUM CHLORIDE 0.9% 50ML 50 ML ONE (06:17)
[2021-04-26] MEDS: BUDESONIDE 0.5MG/2 ML NEB INH SCH ×2 (06:20→18:58)
[2021-04-26 06:44] LABS: BASOPHILS % 0.2 % (0.0-1.0); EOSINOPHILS % 0.1 % (0.0-6.0); HEMATOCRIT 43.5 % (34.2-44.1); HEMOGLOBIN 13.6 g/dL (12.0-16.0); LYMPHOCYTES # (AUTO) 0.5 (1.0-3.2); LYMPHOCYTES % 5.7 % (18.0-39.1); MEAN CORPUSCULAR HEMOGLOBIN 29.2 pg (28-32); MEAN CORPUSCULAR HGB CONC 31.3 g/dL (31-35); MEAN CORPUSCULAR VOLUME 93.5 fL (81-99); MONOCYTES # (AUTO) 0.2 (0.2-0.8); MONOCYTES % 2.3 % (4.4-11.3); NEUTROPHILS # (AUTO) 7.6 (2.1-6.9); NEUTROPHILS % 90.6 % (38.7-80.0); PLATELET COUNT 85 x10e3/uL (140-360); RED BLOOD COUNT 4.65 x10e6/uL (3.6-5.1); RED CELL DISTRIBUTION WIDTH 14.6 % (11.7-14.4)
[2021-04-26 07:19] LABS: ANION GAP 15.5 mmol/L (8-16); CALCIUM 8.3 mg/dL (8.4-10.2); CREATININE, SERUM 0.71 mg/dL (0.57-1.11); POTASSIUM 4.5 mmol/L (3.5-5.1)
[2021-04-26] MEDS: PANTOPRAZOLE SOD 40 MG TABEC PO SCH (07:30)
[2021-04-26] MEDS: SODIUM CHLORIDE 0.9% 1000ML 1,000 ML IV SCH (08:00)
[2021-04-26] MEDS: BUSPIRONE HCL 5 MG TAB PO SCH ×2 (09:00→17:00)
[2021-04-26] MEDS: METOPROLOL TARTRATE 50 MG TAB PO SCH ×2 (09:00→17:00)
[2021-04-26] MEDS: METHYLPREDNISOLONE SOD SUCC 40 MG/ML VIAL 1ML IV SCH (09:00)
[2021-04-26] MEDS: HYDRALAZINE HCL 25 MG TAB PO SCH ×2 (09:00→17:00)
[2021-04-26] MEDS: ACETAMINOPHEN 325 MG TAB PO PRN ×2 (09:55→23:42)
[2021-04-26] MEDS ORDERED: LOPERAMIDE HCL 2 MG CAP PO ONE (17:00)
[2021-04-26] MEDS: ENOXAPARIN 30 MG/0.3 ML SYR SC SCH (17:00)
[2021-04-27] VITALS (9 sets, daily range): BP systolic 149–193; BP diastolic 66–91
[2021-04-27] MEDS: ALBUTEROL/IPRATROPIUM 3 ML NEB NEB SCH ×4 (03:05→18:05)
[2021-04-27] MEDS: SODIUM CHLORIDE 0.9% 1000ML 1,000 ML IV SCH (04:50)
[2021-04-27] MEDS: Cefazolin 1 GM in SODIUM CHLORIDE 0.9% 50ML 50 ML IV SCH ×3 (05:46→21:13)
[2021-04-27] MEDS: LEVOTHYROXINE SODIUM 50 MCG TAB PO SCH (05:46)
[2021-04-27] MEDS: BUDESONIDE 0.5MG/2 ML NEB INH SCH (06:50)
[2021-04-27 07:24] LABS: ANION GAP 14.2 mmol/L (8-16); CALCIUM 8.8 mg/dL (8.4-10.2); CREATININE, SERUM 0.74 mg/dL (0.57-1.11); POTASSIUM 4.2 mmol/L (3.5-5.1)
[2021-04-27 08:32] LABS: BASOPHILS % 0.2 % (0.0-1.0); EOSINOPHILS % 0.2 % (0.0-6.0); HEMATOCRIT 40.8 % (34.2-44.1); HEMOGLOBIN 12.7 g/dL (12.0-16.0); LYMPHOCYTES # (AUTO) 1.1 (1.0-3.2); LYMPHOCYTES % 7.2 % (18.0-39.1); MEAN CORPUSCULAR HEMOGLOBIN 29.1 pg (28-32); MEAN CORPUSCULAR HGB CONC 31.1 g/dL (31-35); MEAN CORPUSCULAR VOLUME 93.4 fL (81-99); MONOCYTES # (AUTO) 0.9 (0.2-0.8); MONOCYTES % 6.3 % (4.4-11.3); NEUTROPHILS # (AUTO) 12.5 (2.1-6.9); NEUTROPHILS % 84.9 % (38.7-80.0); PLATELET COUNT 251 x10e3/uL (140-360); RED BLOOD COUNT 4.37 x10e6/uL (3.6-5.1); RED CELL DISTRIBUTION WIDTH 14.5 % (11.7-14.4)
[2021-04-27] MEDS: METHYLPREDNISOLONE SOD SUCC 40 MG/ML VIAL 1ML IV SCH (08:44)
[2021-04-27] MEDS: BUSPIRONE HCL 5 MG TAB PO SCH ×2 (08:46→16:54)
[2021-04-27] MEDS: METOPROLOL TARTRATE 50 MG TAB PO SCH ×2 (08:46→16:54)
[2021-04-27] MEDS: PANTOPRAZOLE SOD 40 MG TABEC PO SCH (08:47)
[2021-04-27] MEDS: HYDRALAZINE HCL 25 MG TAB PO SCH ×2 (08:47→16:54)
[2021-04-27] MEDS: ENOXAPARIN 30 MG/0.3 ML SYR SC SCH (16:54)
[2021-04-27] MEDS ORDERED: BUDESONIDE/FORMOTEROL 160/4.5MCG INHALER INH SCH (19:00)
[2021-04-27] MEDS: SALMETEROL/FLUTICASONE 250/50 INH SCH (19:08)
[2021-04-27] MEDS: HYDRALAZINE HCL 20 MG/ML VIAL IV PRN (20:48)
[2021-04-28] VITALS: BP 172/86
[2021-04-28] MEDS: ALBUTEROL/IPRATROPIUM 3 ML NEB NEB SCH ×3 (00:52→12:53)
[2021-04-28 04:00] VITALS: BP 191/94
[2021-04-28] MEDS: HYDRALAZINE HCL 20 MG/ML VIAL IV PRN (05:10)
[2021-04-28] MEDS: LEVOTHYROXINE SODIUM 50 MCG TAB PO SCH (05:10)
[2021-04-28] MEDS: Cefazolin 1 GM in SODIUM CHLORIDE 0.9% 50ML 50 ML IV SCH ×2 (05:10→15:14)
[2021-04-28] MEDS: SODIUM CHLORIDE 0.9% 1000ML 1,000 ML IV SCH (05:10)
[2021-04-28] MEDS: SALMETEROL/FLUTICASONE 250/50 INH SCH (06:43)
[2021-04-28 08:30] VITALS: BP 155/65
[2021-04-28] MEDS: PANTOPRAZOLE SOD 40 MG TABEC PO SCH (08:49)
[2021-04-28] MEDS: HYDRALAZINE HCL 25 MG TAB PO SCH ×2 (08:49→17:00)
[2021-04-28] MEDS: BUSPIRONE HCL 5 MG TAB PO SCH ×2 (08:49→17:00)
[2021-04-28] MEDS: METHYLPREDNISOLONE SOD SUCC 40 MG/ML VIAL 1ML IV SCH (08:49)
[2021-04-28] MEDS: METOPROLOL TARTRATE 50 MG TAB PO SCH ×2 (08:50→17:00)
[2021-04-28 12:01] VITALS: BP 159/76
[2021-04-28 14:26] LABS: BASOPHILS % 0.2 % (0.0-1.0); EOSINOPHILS % 0.1 % (0.0-6.0); HEMATOCRIT 40.1 % (34.2-44.1); HEMOGLOBIN 12.6 g/dL (12.0-16.0); LYMPHOCYTES # (AUTO) 0.5 (1.0-3.2); LYMPHOCYTES % 3.7 % (18.0-39.1); MEAN CORPUSCULAR HEMOGLOBIN 29.1 pg (28-32); MEAN CORPUSCULAR HGB CONC 31.4 g/dL (31-35); MEAN CORPUSCULAR VOLUME 92.6 fL (81-99); MONOCYTES # (AUTO) 0.3 (0.2-0.8); MONOCYTES % 2.5 % (4.4-11.3); NEUTROPHILS # (AUTO) 11.4 (2.1-6.9); NEUTROPHILS % 91.7 % (38.7-80.0); PLATELET COUNT 280 x10e3/uL (140-360); RED BLOOD COUNT 4.33 x10e6/uL (3.6-5.1); RED CELL DISTRIBUTION WIDTH 14.6 % (11.7-14.4)
[2021-04-28 15:20] VITALS: BP 142/74
[2021-04-28] MEDS ORDERED: KEFLEX125 MG/5 M PO (16:49)
[2021-04-28] MEDS ORDERED: PREDNISONE20 MG PO (16:50)
[2021-04-28] MEDS: ENOXAPARIN 30 MG/0.3 ML SYR SC SCH (17:00)
[2021-04-29] MEDS ORDERED: BALSAM PERU/CASTOR OIL 60 GM OINT...G. TP SCH (09:00)
== END 2021-04-28 17:25 | disposition home or self-care (01) | DRG 871 ==
LOC: ER 12:01 → ERHOLD 15:05 → MED/SURG2 17:40
PROVIDERS: ADMIT Internal Medicine; ATTEND Internal Medicine
DX: A41.51 Sepsis due to Escherichia coli [E. coli] (principal); J96.01 Acute respiratory failure with hypoxia; N17.9 Acute kidney failure, unspecified; J44.1 Chronic obstructive pulmonary disease with (acute) exacerbation; N10 Acute pyelonephritis; J44.9 Chronic obstructive pulmonary disease, unspecified; F17.210 Nicotine dependence, cigarettes, uncomplicated; Z88.5 Allergy status to narcotic agent; Z88.8 Allergy status to other drugs, medicaments and biological substances; E03.9 Hypothyroidism, unspecified; B95.2 Enterococcus as the cause of diseases classified elsewhere; K74.60 Unspecified cirrhosis of liver; F32.A Depression, unspecified; K86.89 Other specified diseases of pancreas; K83.8 Other specified diseases of biliary tract; I73.9 Peripheral vascular disease, unspecified; Z20.822 Contact with and (suspected) exposure to COVID-19; D69.59 Other secondary thrombocytopenia
CPT/HCPCS: 36415; 36600; 71046; 74177; 80048; 80053; 81001; 82805; 83605; 84145; 85025; 87040; 87071; 87086; 87186; 87205; 87493; 93005; 94799; 96360; 97139; 99251; 99284; J0360; J0690; J0696; J1650; J2185; J2405; J2920; J3370; J7030; J7050; Q9967; U0002